=== PATIENT | male | born 1955 | race Caucasian/White ===

== ENCOUNTER 2021-07-26 11:19 | Outpatient (REF) | payer MEDICARE, SELFPAY ==
--- NOTE | ~2021-07-26 | XR_ITS ---
EXAMINATION: XR CHEST CLINICAL INFORMATION: Atrial fibrillation. COMPARISON: None TECHNIQUE: 2 views of the chest were obtained. FINDINGS: Sternotomy wires are intact. Mediastinal surgical clips are noted. Left atrial appendage clip is noted. Mild cardiomegaly. Scattered aortic calcifications. No abnormal tracheal deviation. The lungs are mildly hyperinflated. Mild blunting of the right costophrenic sulci which may reflect trace pleural effusion and/or pleural thickening. No evidence of left pleural effusion. No pulmonary edema or pneumothorax. No focal airspace opacity. There is mild elevation of the right hemidiaphragm compared to left. Multilevel mild degenerative changes in the spine. XR/XR chest 2V IMPRESSION: Mild cardiomegaly. Trace right pleural effusion versus pleural thickening. No acute pulmonary process otherwise. Hyperinflated lungs.
[2021-07-26 13:15] LABS: Hematocrit 23.2 % (42.0-52.0); Hemoglobin 7.3 g/dl (14.0-18.0); Mean Corpuscular HGB Conc 31.5 g/dl (31.0-36.0); Mean Corpuscular Hemoglobin 28.4 pg (27.0-33.0); Mean Corpuscular Volume 90.3 fL (80.0-98.0); Mean Platelet Volume 10.7 fL (9.4-12.4); Platelet Count 190 X10*3/uL (160-400); Red Blood Count 2.57 X10*6/uL (4.60-5.80); Red Cell Distribution Width 14.9 % (11.0-16.0); White Blood Count 12.7 X10*3/uL (4.8-10.8)
[2021-07-26 13:57] LABS: Erythrocyte Sedimentation Rate 38 MM/HR (0-15)
[2021-07-26 14:03] LABS: Alanine Aminotransferase 18 U/L (0-40); Alkaline Phosphatase 58 U/L (39-117); Anion Gap 15 (12-20); Aspartate Amino Transferase 19 U/L (5-37); Bilirubin Direct 0.3 mg/dL (0.0-0.5); Bilirubin Total 0.4 mg/dL (0.0-1.0); Blood Urea Nitrogen 12 mg/dL (9-16); Calcium 8.6 mg/dL (8.4-10.2); Carbon Dioxide 20 mmol/L (22-29); Chloride 108 mmol/L (96-108); Cholesterol 85 mg/dL; Estimated Glomerular Filt Rate > 60; Glucose Random 137 mg/dL (60-115); HDL Cholesterol 47 mg/dL; LDL Cholesterol Calculated 27 mg/dl; Potassium 4.3 mmol/L (3.3-5.1); Sodium 139 mmol/L (135-145); Total Protein 6.4 g/dL (6.5-8.0); Triglycerides 56 mg/dL
== END 2021-07-26 11:20 | disposition home or self-care (01) ==
LOC: HO.HMGCX 11:19
PROVIDERS: Visit Provider Internal Medicine
DX: I48.91 Unspecified atrial fibrillation (principal)
CPT/HCPCS: 36415; 71046; 80048; 80061; 80076; 85027; 85652

== ENCOUNTER 2025-01-02 09:12 | Outpatient (AMB) | payer MEDICARE, SELFPAY ==
--- NOTE | 2025-01-02 09:17 | A.OFFVIS_ITS ---
Vital Signs 01/02/25 09:18 Height 5 ft 8 in Weight 132 lb BMI 20.1 BP 100/52 L Blood Pressure Location Lt brachial Position Sitting Pulse 69 Pulse Source Pulse Oximeter Pulse Oximetry (%) 96 Oxygen Delivery Method Room Air Intake Visit Reasons: COPD Allergies No Known Allergies Allergy (Verified 01/02/25 09:22) HPI HPI COPD: Details: Errol is a pleasant 69-year-old male, current smoker, with 54+ pack year history with underlying COPD, coronary artery disease status post CABG x4, atrial fibrillation, hypertension, hyperlipidemia and heart failure with preserved EF. He was referred by cardiology for pulmonary evaluation for worsening dyspnea on exertion over the last few months. He is suboptimally controlled on Spiriva and uses albuterol MDI 2-3 times per day. He also notes intermittent wheezing and productive cough with yellow sputum. His last echo was October 2022 which revealed LVEF 40%. Stress test negative for new ischemic findings. Chest x-ray August 2023 revealed chronic small left pleural effusion, no prior chest CT. He also notes unintentional weight loss of 20+ lbs over the last six months with associated decrease in appetite. Denies GI workup. He denies prior h/o asthma. Endorses second hand smoke exposure as a child. Denies recurrent respiratory infections. Denies pertinent family history. 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 [facility] Medical History (Updated 01/02/25 @ 12:51 by Shannon Rosales NP) Diabetes mellitus Social History (Updated 01/02/25 @ 09:22 by Sherry Peace CMA) Patient Tobacco Use Status: Current everyday Tobacco user Cigarette Packs Per Day: 1 Cigarettes Per Day: 20 Review of Systems Const Denies chills, Denies excessive sweating, Denies fever(s), Denies headache(s) and Denies night sweats Eyes Denies dry eyes, Denies irritation and Denies itchy eyes ENT Reports Normal hearing present, Denies headache(s), Denies nasal congestion, Denies nasal discharge, Denies post nasal drip and Denies sore throat Card Denies chest pain, Denies chest pain at rest, Denies chest pain with activity, Denies claudication, Denies leg edema, Denies orthopnea and Denies paroxysmal nocturnal dyspnea Resp Denies excessive phlegm production, Denies pain on inspiration, Denies pain with cough and Denies stridor Musc Denies myalgias Neuro Reports Normal hearing present and Denies headache(s) Endo Denies excessive sweating Ezekiel/Lymph Denies lymphadenopathy Aller/Immun Denies itchy eyes and Denies seasonal rhinorrhea Physical Exam Vital Signs: Last Vital Signs Pulse 69 01/02/25 09:18 BP 100/52 L 01/02/25 09:18 Pulse Ox 96 01/02/25 09:18 Oxygen Delivery Method Room Air 01/02/25 09:18 BMI result Body Mass Index 20.1 Const General: cooperative, comfortable, no acute distress and alert Orientation/consciousness: patient oriented x3 HEENT Head: Yes normal to inspection, Yes normocephalic and Yes atraumatic Ears: hearing grossly normal bilaterally and external ears normal Eyes General: appearance normal, both eyes and all related structures Eyelids: Yes eyelids normal Sclerae: sclerae normal EOM: EOMs intact bilaterally Neck Neck: Yes normal visual inspection and Yes no lymphadenopathy Lymphatic: no lymphadenopathy noted Chest Chest palpation & inspection: normal inspection of the chest Resp Effort & Inspection: normal respiratory effort, able to speak in complete sentences, no audible wheezes, Actively coughing Quality: wet, no stridor, not tachypneic, no tripod positioning and no use of accessory muscles Auscultation: no crackles, rhonchi and wheezes Cardio Jugular venous distension: no JVD Rate: regular rate Rhythm: regular rhythm Skin Other: warm, dry General skin exam: no rashes or lesions noted Neuro General: patient oriented x3 Cranial nerves: Yes Normal hearing present Cognition (Neuro): normal cognition Gait exam (Neuro): Normal gait present Extrem General: Yes normal to inspection, Yes capillary refill normal, Yes no clubbing, cyanosis or edema and Yes no pedal edema Psych Appearance: grossly normal and well kempt Speech and movement: Normal speech and movement present and Clear speech present Affect: normal affect Attitude: cooperative Thought process: Normal thought process present Thought content: Normal thought content present Insight: Good insight present (Psych) Judgement: Good judgement present (Psych) Assessment & Plan Assessment & Plan (1) COPD (chronic obstructive pulmonary disease): Code(s): J44.9 - Chronic obstructive pulmonary disease, unspecified Category: Medical (2) Nicotine dependence, cigarettes, uncomplicated: Code(s): F17.210 - Nicotine dependence, cigarettes, uncomplicated Category: Medical Plan Errol presents for pulmonary evaluation for worsening dyspnea on exertion with known history of COPD. Today presents with acute exacerbation, will treat bronchitic symptoms with doxycycline and prednisone. He is aware to call if symptoms do not improve. Will switch Spiriva to Trelegy. Discussed importance of good oral hygiene to prevent thrush. Will send for chest CT given significant smoking history and with unintentional weight loss in addition to decreased appetite. Patient has PFT scheduled later this week through [facility], will obtain results when available. Smoking cessation reviewed and patient not ready to q uit. All questions were answered and patient is in agreement of plan. Will follow up in 6-8 weeks or sooner if needed. Orders: Orders CT chest wo IV con Today F1 - Nicotine dependence, cigarettes, uncomplicated Medications: New eyrqpvuxkxg-twyqjjncj-gtblfuzm 200-62.5-25 mcg (Trelegy Ellipta) 1 inh inhalation DAILY 60 ea 6RF doxycycline hyclate 100 mg PO BID 14 caps 0RF prednisone 40 mg (2 x 20 mg) PO DAILY 10 tabs 0RF Coding Level of Care Code New Pt Level 4 (60482) Diagnoses COPD (chronic obstructive pulmonary disease) J44.9 Nicotine dependence, cigarettes, uncomplicated F1
[2025-01-02 09:18] VITALS: BP 100/52; PULSE 69; O2SAT 96; BMI 20.1
--- OUTSIDE RECORDS SUMMARY | 2025-01-02 09:59 | XMS_ITS ---
Author Organization [facility] allie [place] Address [address] [place] [address] Care Team Providers Care Equipment Service Associate Name Role Phone Junie Ann Primary Care Provider Unavail able Julissa Ellison Unavailable [phone] Jorge Hernandez Unavailable [phone] Ruth Encounters Encounter Location Date Provider Diagnosis [address] [address] 01/04/2024 Jorge Hernandez Plan Of Treatment Next Appt Details Provider Name:Julissa schmitt, 01/16/2025 10:30:00 AM, [address] [place] [address], [place], [address], Progress Notes * Errol RODRIGUES JrDOB:[birth year] (69 yo M)Acc No.[id number]:01/04/2024 Progress Note Patient:?Errol RODRIGUES r Provider:?Jorge Hernandez DPM :1955???Age:68 Y???Sex:Male Leonid e:01/04/2024 Address:[address] [place], [place] [address] Pcp:GABE Florian Subjective: * Chief Complaints: * ???1. Dr. Ruth. * Medical History:? Objective: * Vitals:? Assessment: Plan: * Treatment: * Images: * The named appointment provid er may or may not be the originator of this progress note, and it is not deemed complete until electronically signed by the appointment provider. Sign off status: Pending * Provider:Yolanda Hernandez DPM Date:? 024 Generated for Grecia alexis/Jayna/Neal on:?01/02/2025 09:59 AM EDT
--- OUTSIDE RECORDS SUMMARY | 2025-01-02 09:59 | XMS_ITS | Clinical Summary ---
Author Organization [facility] Address [address] [place] [address] Care Team Providers Care Logistics Officer Name Role Phone Jenae Hahn MD Primary Care Provider Allergies No known active allergies Medications Medication Sig Dispensed Refills Start Date End Date Status metFORMIN (GLUCOPHAGE) tablet 500 mg Take 1,500 mg by mouth. 0 04/01/2021 Active acetaminophen (TYLENOL) 500 MG tablet Take 1,000 mg by mouth. 0 11/02/2018 Active atorvastatin (LIPITOR) tablet 80 mg Take 80 mg by mouth every other day. 0 09/22/2021 Active carvedilol (COREG) 3.125 MG tablet Take 3.125 mg by mouth 2 (two) times a day with meals. 0 09/08/2021 Active FeroSul 325 (65 Fe) MG tablet Take 1 tablet by mouth daily. 0 10/05/2021 Active FLUoxetine (PROzac) 40 MG capsule Take 40 mg by mouth daily. 0 08/08/2021 Active furosemide (LASIX) 20 MG tablet Take 40 mg by mouth daily. 0 10/15/2021 Active B-D UF III MINI PEN NEEDLES 31G X 5 MM [facility] USE 1 PEN NEEDLE TO INJECT INSULIN ONCE DAILY 0 10/12/2021 Active isosorbide mononitrate (IMDUR) 30 MG 24 hr tablet Take 30 mg by mouth every morning. 0 08/20/2021 Active omeprazole (PriLOSEC) 20 MG capsule Take 1 capsule by mouth daily. 0 10/09/2021 Active Entresto 24-26 MG per tablet Take 1 tablet by mouth 2 (two) times a day. 0 10/03/2021 Active thiamine 250 MG tablet Take 250 mg by mouth. 0 07/28/2021 Active traZODone (DESYREL) 100 MG tablet Take 100 mg by mouth every night at bedtime. 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 Failed previously multiple attempts Alcohol Use Standard Drinks/Week Comments Not Currently 0 (1 standard drink = 0.6 oz pur e alcohol) Recovering alcoholic Sex and Gender Information Value Date Recorded Sex Assigned at Not on file Gender Identity Not on file Sexual Orientation Not on file Job Start Date Occupation Industry Not on file Not on file Not on file Last Filed Vital Signs Vital Sign Reading Time Taken Comments Blood Pressure 149/68 10/22/2021 9:51 AM EST Pulse 71 10/22/2021 9:51 AM EST Temperature 36.6 ??C (97.9 ??F) 10/22/2021 9:51 AM ES T Respiratory Rate - - Oxygen Saturation 99% 10/22/2021 9:51 AM EST Inhaled Oxygen Concentration - - Weight 72.9 kg (160 lb 12.8 oz) 10/22/2021 9:51 AM EST Height 174 cm (5' 8.5 ) 10/22/2021 9:51 AM EST Body Mass Index 24.09 10/22/2021 9:51 AM EST Plan of Treatment Health Maintenance Due Date Last Done Comments Hepatitis C Screening 1955 Lung Cancer Screening (Low Dose CT) 1955 Depression Screening 1965 Preventative Health Evaluation 1971 DTap / Tdap / Td (1 - Tdap) 02/09/1972 Colon Cancer Screening (Colonoscopy) 1998 Shingrix-Zoster Vaccine (1 o f 2) 2003 RSV Adult > 60+ Yrs or (1 - Risk 60-74 years 1-dose series) 2013 Fall Risk Assessment 2018 Pneumococcal Vaccine (2 of 2 - PPSV23 or PCV20) 03/03/2019 01/06/2019 COVID-19 Vaccine (4 - 2023-2 5 season) 2024 05/26/2021, 11/20/2020, 10/30/2020 Influenza Vaccine (#1) 2024 05/26/2021 Hepatitis B Vaccines Aged Out No long er eligible based on patient's age to complete this topic RSV Ped < 20 months Aged Out No longe r eligible based on patient's age to complete this topic Care Teams Logistics Officer Relationship Specialty Start Date End Date Jenae Hahn MD [address] [place], [place] PCP - General Pulmonary Disease 09/23/21
--- OUTSIDE RECORDS SUMMARY | 2025-01-02 09:59 | XMS_ITS ---
[facility] Address [address] [place] [address] Care Team Providers Care Coater Operator Name Role Phone Yazan Junie BERNAL Primary Care Provider Unavail able Julissa Ellison Unavailable [phone] Jorge Hernandez Unavailable [phone] Allergies No Known Allergies Medications Medication SIG (Take, Route, Frequency, Duration) Notes Start Date End Date Status Omeprazole Active Clobetasol Propionate Active Sacubitril-Valsartan Active Entresto 24-26 MG 1 tablet Orally Twic e a day Active eliquis 5 mg Active Spiriva Respimat Act scott Farxiga 5 MG 1 tablet Orally Once a day Active Ventolin HFA Active Torsemide Active Iron Active Gabapentin Active Vitamin C Active Docusate Sodium Acti ve Vitamin B1 Active Aspir-81 Active Tylenol 500mg Not-Ta keaton Lisinopril 20 MG 1 tablet Orally Once a day for 30 day(s) Not-Taking oxyCODONE HCl 5 MG Orally N ot-Taking Lantus 100 UNIT/ML as directed Subcutaneous Active Warfarin Sodium 1 MG 1 tablet Orally Onc e a day for 30 day(s) Not-Taking Isosorbide Dinitrate 30 MG 1 tablet Orally Twice a day for 30 day(s) Not-Taking Carvedilol 6.25 MG 1 tablet with food Orally Twice a day Active Digoxin 125 MCG as directed Orally Not-Taking Thiamine 250mg 1 capsules Not- Taking Gabapentin 100 MG 1 capsule Orally Onc e a day hs 01/26/2020 Not-Taking metFORMIN HCl 500 MG 1 tablet with a marjorie l Orally Once a day for 30 day(s) Active Multivitamin Active Clopidogrel Bisulfate 75 MG 1 tablet Orally Once a day for 30 day(s) Active Furosemide 20 MG as directed Orally Not-Taking traZODone HCl 100 MG 1 tablet at bedtime Orally Once a day for 30 day(s) Active Acetaminophen Not-Ta keaton Atorvastatin Calcium 80 MG 1 tablet Orally Once a day for 30 day(s) Active Fluoxetine Active Budesonide Active Ferrous Sulfate Acti ve Insulin Glargine Act scott Social History Tobacco Use: Social History Observation Description Date Details (start date - stop date) Current Smoker NA - NA Tobacco Use/Smoking Question Answer Notes Are you a: current smoker How many cigarettes a day do you smoke? Alcohol Screen Question Answer Notes Did you have a drink containing alcohol in the p ast year? No Points 0 Interpretation Negative Tobacco use other than smoking: Question Answer Notes Are you an other tobacco user? No Vital Signs Height 5ft 8in in 01/11/2024 Weight 144 lbs 01/11/2024 BMI 21.89 kg/m2 01/11/2024 Encounters Encounter Location Date Provider Diagnosis [facility] [place] [address] [place] [id number] 01/11/2024 Jorge Hernandez Type 1 diabetes mellitus with diabetic polyneuropathy E10.42 ; Neuralgia and neuritis, unspecified M79.2 ; Eczema, unspecified type L30.9 ; Tinea unguium B35.1 ; Ingrowing nail L60.0 ; Pain in left foot M79.672 ; Pain in right foot M79.671 and Xerosis cutis L85.3 Assessments Encounter Date Diagnosis (ICD Code) Assessment Notes Treatment Notes Treatment Clinical Notes Section Notes 01/11/2024 Type 1 diabetes mellitus with diabetic polyneuropathy (ICD-10 - E10.42) 01/11/2024 Neuralgia and neuritis, unspecified (ICD-10 - M79.2) 01/11/2024 Eczema, unspecified type (ICD-10 - L30.9) 01/11/2024 Tinea unguium (ICD-10 - B35.1) 01/11/2024 Ingrowing nail (ICD-10 - L60.0) 01/11/2024 Pain in left foot (ICD-10 - M79.672) 01/11/2024 Pain in right foot (ICD-10 - M79.671) 01/11/2024 Xerosis cutis (ICD-10 - L85.3) Plan Of Treatment Next Appt Details Follow Up: 1 Year, Reason: Provider Name:Julissa Collins keshia, 01/16/2025 10:30:00 AM, [address] [facility], [address], [place], [address], Procedure Notes * Category Sub-Category Detail Notes Keratoma Treatment Parring or Cutting o f Benign Hyperkeratotic Lesion(s) 80545 ( >4 Lesions) - The Benign hyperkeratotic lesions, as described above were pared, and/or cut utilizing a sterile #15 blade, tissue nippers, and/or dremel Nail Reduction Nail Reduction Trimming of dyst rophic nails performed to reduce/remove overall nail length and girth, by manual and electrical means with use of a nail nipper and/or dremel, to more viable healthy nail plate or bed tissue 6-10 (G0127) Progress Notes * Errol RODRIGUES JrDOB:[birth year] (68 yo M)Acc No.[id number]:01/11/2024 Progress Note Patient:?Errol Rodrigues Provider:?Jorge Hernandez DPM :1955???Age:68 Y???Sex:Male Leonid e:01/11/2024 Address:[address] [place], [place] [id number] Pcp:GABE Florian Subjective: * Chief Complaints: * ??? * HPI: ???At Risk footcare:?Pt States Last PCP Visit:?Date?09/30/2023 ???Foot Pain:?Nature:?cold, numbness, tingling.?Location?Right , Forefoot, Midfoot, Rearfoot.?Duration:?several years.?Onset/Cause:?spinal disease.?Aggrevated:?standing, walking, exercise.?Treatments:?3 sx consults-- all have told pt there is no operation they can do to help; pt had recent vascular exam and testing done at [facility] which indicates worsening of his circulation but no advice of sx tx.?Quality/Severity?severe.?Skin problems:?Nature:?discolored, tender.?Location:?Right , 1st, Tip.?Duration:?several weeks.?Onset/Cause:?shoes are too short/small.?Aggravated by:?no aggrevating factors due to dpn.?Severity/Quality:?mild.? * ROS:?General/Constitutional:?Nausea?denies.?Vomiting?denies.?Hunger Thirst?denies.?Loss appetite?denies.?Chills?denies.?Fatigue?denies.?Fever?denies.?Night Sweats?denies.?Unexplained weight loss?denies.?Unexplained weight gain?denies.?HEENTM:?Dentures?denies.?Dizziness?denies.?Glasses/contacts?denies.?Retinopathy?de nies.?Blurred/double vision?denies.?TMJ?denies.?Discharge/drainage?denies.?Implants?denies.?Sore throat?denies.?Dental implants?denies.?Hard of hearing ?denies.?Difficulty chewing/swallowing/speaking?denies.?Nose bleeds?denies.?Sore mouth?denies.?Respiratory:?On Oxygen?denies.?Pneumonia/pleurisy?denies.?Bronchitis?denies.?Emphysema?denies.?C oughing?denies.?Cough blood?denies.?Shortness of breath?denies.?Wheezing?denies.?Cardiovascular:?Pacemaker?denies.?MVP?denies.?WPW?denies.?CHF?denies.?Heart attack?denies.?Septal defect?denies.?Rapid beat?denies.?Chest pain ?denies.?Atrial Fib.?denies.?Murmur/Palpitations?denies.?Gastrointestinal:?Hemorrhoids?denies.?Stomach/Abdominal pain?denies.?Dark blood stool?denies.?Irritable bowel ?denies.?Constipation?denies.?Diarrhea?denies.?Hematology:?Swelling?denies.?Clots?denies.?Varicose Veins?denies.?Bruising?denies.?Bleeding problem?denies.?Genitourinary:?Blood urine?denies.?Frequent/Painfu/urination/bladder control?denies.?Kidney stones?denies.?Infection (UTI)?denies.?Nephropathy?denies.?sex trans dis (STD)?denies.?Prostate?denies.?Musculoskeletal:?Hammertoes?denies.?Bunions?denies.?Back Pain?denies.?Muscle Cramps/ Resting?denies.?Muscle cramps / walking?denies.?Generalized aches and pains?denies.?Weakness?denies.?Integ.:?Cain?denies.?Scars?denies.?Corns/calluses?denies.?Ingrown nails?denies.?Painful nails?denies.?Open Sores?denies.?Rashes?denies.?Neurologic:?Difficulty sleeping?denies.?Brain disorder?denies.?Numbness?denies.?Balance trouble?admits.?Confusion?denies.?Fainting/blackouts?denies.?Tingling?admits.?Tr emors?denies.? * Medical History:? * Surgical History:?Quadrupl h eart surgery [id number] implants [id number] transfusion * Hospitalization/Major Diagno stic Procedure:[facility] Pacemaker 07/2022 * Family History:?Mother: dece ased, foot problems, poor circulation, diagnosed with Family history of arthritis, Diabetic - NIDDM, Unspecified essential hypertension.?Father: , heart attack.?Siblings: stroke, heart attack, diagnosed with Family history of arthritis.? * Social History:?Tobacco Use:?Tobacco Use/Smoking?Are you a:?current smoker ?How many cigarettes a day do you smoke??21-30 ?Tobacco use other than smoking?Are you an other tobacco user??No ???Drugs/Alcohol:?Drugs?Have you used drugs other than those for medical reasons in the past 12 months??No ?Alcohol Screen?Did you have a drink containing alcohol in the past year??No ?Points?0 ?Interpretation?Negative ???Miscellaneous:?Caffeine: yes, frequency:, 2-3 cups per day. ?Children: yes. ?Exercise: yes. ?Marital status: . ?Occupation: Retired [employer]. * Medications:?TakingGabapenti n Vitamin C Vitamin B1 Aspir-81 Docusate Sodium Iron Ventolin HFA Torsemide Spiriva Respimat Farxiga 5 MG Tablet 1 tablet Orally Once a dayEntresto 24-26 MG Tablet 1 tablet Orally Twice a dayeliquis 5 mg Tablet Clobetasol Propionate Sacubitril-Valsartan Omeprazole Insulin Glargine Ferrous Sulfate Fluoxetine Budesonide Atorvastatin Calcium 80 MG Tablet 1 tablet Orally Once a dayClopidogrel Bisulfate 75 MG Tablet 1 tablet Orally Once a daymetFORMIN HCl 500 MG Tablet 1 tablet with a meal Orally Once a dayMultivitamin traZODone HCl 100 MG Tablet 1 tablet at bedtime Orally Once a dayCarvedilol 6.25 MG Tablet 1 tablet with food Orally Twice a dayLantus 100 UNIT/ML Solution as directed Subcutaneous Taking Gabapentin Taking Vitamin C Taking Vitamin B1 Taking Aspir-81 Taking Docusate Sodium Taking Iron Taking Ventolin HFA Taking Torsemide Taking Spiriva Respimat Taking Farxiga 5 MG Tablet 1 tablet Orally Once a dayTaking Entresto 24-26 MG Tablet 1 tablet Orally Twice a dayTaking eliquis 5 mg Tablet Taking Clobetasol Propionate Taking Sacubitril-Valsartan Taking Omeprazole Taking Insulin Glargine Taking Ferrous Sulfate Taking Fluoxetine Taking Budesonide Taking Atorvastatin Calcium 80 MG Tablet 1 tablet Orally Once a dayTaking Clopidogrel Bisulfate 75 MG Tablet 1 tablet Orally Once a dayTaking metFORMIN HCl 500 MG Tablet 1 tablet with a meal Orally Once a dayTaking Multivitamin Taking traZODone HCl 100 MG Tablet 1 tablet at bedtime Orally Once a dayTaking Carvedilol 6.25 MG Tablet 1 tablet with food Orally Twice a dayTaking Lantus 100 UNIT/ML Solution as directed Subcutaneous Not-Taking/PRNAcetaminophen Furosemide 20 MG Tablet as directed Orally Thiamine 250mg 1 capsules Gabapentin 100 MG Capsule 1 capsule Orally Once a day hsDigoxin 125 MCG Tablet as directed Orally Isosorbide Dinitrate 30 MG Tablet 1 tablet Orally Twice a dayLisinopril 20 MG Tablet 1 tablet Orally Once a dayoxyCODONE HCl 5 MG Tablet Orally Tylenol 500mg Warfarin Sodium 1 MG Tablet 1 tablet Orally Once a dayMedication List reviewed and reconciled with the patientNot-Taking/PRN Acetaminophen Not- Taking/PRN Furosemide 20 MG Tablet as directed Orally Not-Taking/PRN Thiamine 250mg 1 capsules Not-Taking/PRN Gabapentin 100 MG Capsule 1 capsule Orally Once a day hsNot- Taking/PRN Digoxin 125 MCG Tablet as directed Orally Not-Taking/PRN Isosorbide Dinitrate 30 MG Tablet 1 tablet Orally Twice a dayNot-Taking/PRN Lisinopril 20 MG Tablet 1 tablet Orally Once a dayNot-Taking/PRN oxyCODONE HCl 5 MG Tablet Orally Not-Taking/PRN Tylenol 500mg Not-Taking/PRN Warfarin Sodium 1 MG Tablet 1 tablet Orally Once a dayMedication List reviewed and reconciled with the patient * Allergies:?N.K.D.A.yes[Aller sonu Verified] Objective: * Vitals:?Ht: 5ft 8in, Wt:144, BMI:21.89, Shoe size: 9-9.5, Ht-cm: 172.72 cm, Wt- k.32 kg. * Examination: ???Ophthalmology Referral: ?DIABETES EYE EXAM?Diabetic Retinopathy Screening:?Yes?Dermatologic: ?SKIN FINDINGS:? Skin exam reveals Keratotic lesion(s) located at, Medial plantar, IPJ, TA, T5, Heel(s), B/Land distal -medial t5, Skin shows sign(s) of, erythema, scaling, in a moccasin fashion, no fissure(s) present, B/L, Skin exam reveals Keratotic lesion(s) located at, Plantar, Midfoot, B/L.?Neurological: ?SENSORY:?Neurological exam demonstrates, reduced light touch sensation, reduced vibration sensation, 5.07 monofilament test performed at plantar aspects of 5 varied sites per foot shows sensation, reduced , at Forefoot, at Midfoot right more than left.?TINEL'S COMPRESSION:?Negative tarsal tunnel, vinh pedis, and medial calcaneal nerves B/L.?BABINSKI REFLEX:?absent.?Vascular: ?DP PULSES:?1/4, B/L.?PT PULSES:?0/4, B/L.?CAPILLARY FILL TIME:?3 secs. per digit, B/L.?SKIN TEMPERTURE GRADIENT OF THE LOWER EXTERMITIES:?warm to cool, proximal to distal, B/L.?HAIR GROWTH/TEXTURE/ELASTICITY/TURGOR:?normal, B/L.?PIGMENTATION:?normal, B/L.?EDEMA:?no edema.?TELANGECTASIA:?absent.?VARICOSITIES:?absent.?General Examination: ?GENERAL APPEARANCE:?pleasant, alert, well nourished, well developed, well hydrated, with good attention to hygene/body habitus, and in no acute distress.?ORIENTED:?person,place, and time.?FOOT EXAM:?Lower Extremity Neurological Exam performed:?Yes ?Visual exam of foot performed:?Yes ?Date?01/11/2024 ?Sensory testing performed:?sensations diminished ?Pedal pulse taking performed:?1+?Neuroma Pain: ?PALPATION:?No interspace pain noted on palpation.?Orthopedic: ?MUSCLE STRENGTH:?5/5 all groups in a symmetrical fashion , B/L.?FOOTWEAR:? worn, and far too tight in toe box.?Ingrown Nail: ?INSPECTION:? Reveals nail incurvation, dull pain on palpation due to neuropathy, groove hypertrophy, Medial nail border, T5.?Nails: ?NAILS are:? Elongated, overgrown, dystrophic, lytic, greater than 3mm thick, discolored and friable with crumbly malodorous subungual debris, with dull to no pain on palpation due to neuropathy, TA, T5.? Assessment: * Assessment: 1.?Neuralgia and neuritis, u nspecified - M79.2?2.?Type 1 diabetes mellitus with diabetic polyneuropathy - E10.42 (Primary)?3.?Eczema, unspecified type - L30.9?4.?Tinea unguium - B35.1?5.?Ingrowing nail - L60.0?6.?Pain in left foot - M79.672 7.?Pain in right foot - M79.671?8.?Xerosis cutis - L85.3? Plan: * Treatment: * Procedures:?Keratoma Treatment:?Parring or Cutting of Benign Hyperkeratotic Lesion(s)?43142 ( >4 Lesions) - The Benign hyperkeratotic lesions, as described above were pared, and/or cut utilizing a sterile #15 blade, tissue nippers, and/or dremel.?Nail Reduction:?Nail Reduction?Trimming of dystrophic nails performed to reduce/remove overall nail length and girth, by manual and electrical means with use of a nail nipper and/or dremel, to more viable healthy nail plate or bed tissue 6-10 (G0127).? * Procedure Codes:?G0127 ANGELITO ING DYSTROPHIC NAILS ANY #, Modifiers: XS 37097 TRIM SKIN LESIONS, OVER 4, Modifiers: XS * Preventive Medicine:? ??Counseling:?Discussion:?-14: Office or other outpatient visit for the evaluation and management of an established patient, which required a medically appropriate history and/or examination and MODERATE level of DECISION MAKING for: 1 OR MORE CHRONIC PROBLEM(S) THATS WORSENING, 2 STABLE CHRONIC PROBLEMS, A NEWLY DIAGNOSED PROBLEM WITH UNCERTAIN PROGNOSIS, AN ACUTE COMPLICATED INJURY WITH MULTIPLE TREATMENT OPTIONS, OR AN ACUTE PROBLEM WITH ACCOMPANYING SYSTEMIC SYMPTOMS, THAT POSE(S) A MODERATE RISK OF MORBIDITY. THIS CONDITION MAY ALSO INCLUDE RX DRUG MANAGEMENT, OR A DECISON FOR MINOR SURGERY. When using time for code selection, 30-39 min of total time was spent on the day of the encounter interpreting the data and educating the patient as to the nature of their condition, treatment options available according to their individual PMH, meds, allergies, and overall health/living conditions, as well as any potential risks or complications that may occur from a failure to adhere to, and participate in, the recommended course of therapy. The discussion included a complete verbal, and/or written explanation of the examination results, any x-rays taken, the proposed diagnosis, and outline of the treatment plan. A schedule for future care needs was also explained. The patient verbalized an understanding of the instructions at this time and agreed to be an active participant in their treatment. If the patient should think of any questions or concerns after the visit, I have encouraged the patient to call the office.?Diabetic Footcare:?The Pt. was counseled in great detail on their muscoloskeletal foot and toe deformities which coincide with the dermatological presentations visualized on exam. We discussed how their deformities put the integrity of their feet at risk for potential pedal complications which makes the accomidative diabetic shoes and cutomizable inserts medically necessary. We discussed the different shoe and insert treatment types and options, as well as the important advantages for adhering to regularly wearing these accomidative devices daily. The patient was made aware of the fact that a failure to abide by these recommedations may be deleterious to their foot health as they are able to prevent many pedal complications such as skin irritation, skin ulceration, infection, and even loss of toe/foot/leg/or life. Time was also spent with the patient dispensing and discussing proper diabetic footcare techniques including daily skin moisturization, daily foot inspection for any interruption in skin integrity including open lesions, or sign of infection such as redness/malodor/drainage/swelling. Also discussed and recommended were procedures regarding daily shoe inspection for the presence of internal foreign bodies as well as any visualized irregular shoe or insert wear. Patient questions re: shoes, inserts, and self foot inspections were answered to their satisfaction as the patient verbally confirmed a full understanding of the above information. A Rx: Extra Depth Diabetic Shoes with 3 pair of custom heat-molded inserts was dispensed, A thorough inspection of the patient's Rxed shoegear and inserts was performed and their findings communicated. We reviewed the many important medical advantages for adhering to regularly wearing these toe/foot accommidative devices daily. We reviewed the fact that a failure to implement these recommedations may be deleterious to the patient's foot health as there would be an inability to prevent many pedal complications. Such may lead to skin irritation, skin ulceration, infection, and even loss of toe/foot/leg/or their life. Time was also spent reviewing proper diabetic footcare practices including daily skin moisturization, daily foot inspection for any interruption in skin integrity, open lesions, or sign of infection such as redness/malodor/drainage/swelling. Also recommended was purposeful regular shoe inspection for the presence of internal foreign bodies as well as irreguklar shoe and insert wear. Patient questions re: shoes, inserts, and self foot inspections were answered to their satisfaction as the patient verbally confirmed a full understanding of the above information_ _pt to throw away curent shoes and new larger size to prevent dm skin ulcer/infection .?Xerosis:?The patient was counseled on the diagnosis, potential etiologies, and treatment options for their skin condition. We discussed the risks and benefits of each option from performing no treatment, to utilizing OTC topical skin creams/ointments, to utilizing prescription topical creams/ointments, to utilizing customized compounded topical medications and use of nocturnal occlusion with any/all previously detailed therapies. We discussed the advantages and disadvantages of each possible treatment and importance for adherence to all the recommended therapies for optimum success and avoid potential complications such as open sore/infection/possible hospitalization. We discussed the potential effectiveness of each topical preparation as well as each ones possible side effects and/or patient medication interactions. Patient questions re: use, dosage, successful outcomes, and application consistency were reviewed and the patient verbalized that all answers were clearly understood. The patient has decided to apply Rx skin creams to their feet save the interspaces while paying special attention to the heels. Such was sent to their pharmacy at the time of visit.? * Follow Up:?1 Year * Images: * Sign off status: Completed true * Provider:?Jorge Hernandez DPM Date:? 024 Generated for Grecia alexis/Jayna/Neal on:?01/02/2025 09:59 AM EDT History and Physical Notes * HPI (History of Present Illness) Category Sub-Category Detail Notes Category Not es Skin problems Nature: discolored, tender Location: Right , 1st, Tip Duration: several weeks Onset/Cause: shoes are too short/ small Aggravated by: no aggrevating facto rs due to dpn Severity/Quality: mild At Risk footcare Pt States Last PCP Visit: Date: 4 Foot Pain Aggrevated: standing, walking, exercise Onset/Cause: spinal disease Duration: several years Nature: cold, numbness, ting ling Treatments: 3 sx consults-- all have told pt there is no operation they can do to help; pt had recent vascular exam and testing done at [facility] which indicates worsening of his circulation but no advice of sx tx Quality/Severity severe Location Right , Forefoot, Mi dfoot, Rearfoot Examination Category Sub-Category Detail Notes Category Not es Ingrown Nail INSPECTION: Reveals nail inc urvation, dull pain on palpation due to neuropathy, groove hypertrophy, Medial nail border, T5 Neuroma Pain PALPATION: No interspace pain noted on palpation Neurological SENSORY: Neurological exa m demonstrates, reduced light touch sensation, reduced vibration sensation, 5.07 monofilament test performed at plantar aspects of 5 varied sites per foot shows sensation, reduced , at Forefoot, at Midfoot right more than left BABINSKI REFLEX: absent TINEL'S COMPRESSION: Negative tarsal dixon antonia, vinh pedis, and medial calcaneal nerves B/L Dermatologic SKIN FINDINGS: Skin exam reveal s Keratotic lesion(s) located at, Medial plantar, IPJ, TA, T5, Heel(s), B/Land distal -medial t5, Skin shows sign(s) of, erythema, scaling, in a moccasin fashion, no fissure(s) present, B/L, Skin exam reveals Keratotic lesion(s) located at, Plantar, Midfoot, B/L Orthopedic FOOTWEAR EVALUATION: worn, and far too ti ght in toe box MUSCLE STRENGTH: 5/5 all groups in a symmetrical fashion , B/L General Examination GENERAL APPEARANCE: pleasant , alert, well nourished, well developed, well hydrated, with good attention to hygene/body habitus, and in no acute distress FOOT EXAM: Lower Extremity Neurological Exa m performed:: Yes Visual exam of foot performed:: Yes Date: 01/11/2024 Sensory testing performed:: sensations d iminished Pedal pulse taking performed:: 1+ ORIENTED: person,place, and ti hi Ophthalmology Referral DIABETES EYE EXAM Diabetic Retinopa thy Screening:: Yes Vascular DP PULSES (B): 1/4, B/L PT PULSES (B): 0/4, B/L CAPILLARY FILL TIME: 3 secs. per digit, B/L TEMPERTURE GRADIENT (C): warm to cool, p roximal to distal, B/L TROPHIC CONDITION-TEXTURE/ELASTICITY/TURGOR/HAIR GROWTH (B): normal, B/L EDEMA (C): no edema TELANGECTASIA: absent VARICOSITIES: absent PIGMENTATION: normal, B/L Nails NAILS are: Elongated, overg rown, dystrophic, lytic, greater than 3mm thick, discolored and friable with crumbly malodorous subungual debris, with dull to no pain on palpation due to neuropathy, TA, T5
--- OUTSIDE RECORDS SUMMARY | 2025-01-02 10:00 | XMS_ITS | Patient Health Record ---
Author Organization [facility] Guido kelley [place] Address [address] [facility] [place] [address] Care Team Providers Care Junior Loan Processor Name Role Phone Junie Ann Primary Care Provider Unavail able Julissa Ellison Unavailable [phone] Jorge Hernandez Unavailable [phone] Allergies No Known Allergies Reason For Referral No Information Medications Medication SIG (Take, Route, Frequency, Duration) Notes Start Date End Date Status Gabapentin Active Vitamin C Active metFORMIN HCl 500 MG 1 tablet with a marjorie l Orally Once a day for 30 day(s) Active Multivitamin Active Clopidogrel Bisulfate 75 MG 1 tablet Orally Once a day for 30 day(s) Active Furosemide 20 MG as directed Orally Not-Taking Acetaminophen Not-Ta keaton Atorvastatin Calcium 80 MG 1 tablet Orally Once a day for 30 day(s) Active Fluoxetine Active Budesonide Active Docusate Sodium Acti ve Insulin Glargine Act scott Ferrous Sulfate Acti ve Vitamin B1 Active Warfarin Sodium 1 MG 1 tablet Orally Onc e a day for 30 day(s) Not-Taking Aspir-81 Active Omeprazole Active Clobetasol Propionate Active Tylenol 500mg Not-Ta keaton Sacubitril-Valsartan Active Entresto 24-26 MG 1 tablet Orally Twic e a day Active Lisinopril 20 MG 1 tablet Orally Once a day for 30 day(s) Not-Taking eliquis 5 mg Active oxyCODONE HCl 5 MG Orally N ot-Taking Spiriva Respimat Act scott Isosorbide Dinitrate 30 MG 1 tablet Orally Twice a day for 30 day(s) Not-Taking Farxiga 5 MG 1 tablet Orally Once a day Active Lantus 100 UNIT/ML as directed Subcutaneous Active Ventolin HFA Active Carvedilol 6.25 MG 1 tablet with food Orally Twice a day Active Torsemide Active Digoxin 125 MCG as directed Orally Not-Taking Thiamine 250mg 1 capsules Not- Taking Iron Active Gabapentin 100 MG 1 capsule Orally Onc e a day hs 01/26/2020 Not-Taking traZODone HCl 100 MG 1 tablet at bedtime Orally Once a day for 30 day(s) Active Immunizations Vaccine Route Administration Date Status Comme nts COVID-19 Pfizer BioNTech Vaccine Unknown 11/20/2020 Adm inistered 1# 10/30/20 Influenza Unknown 04/30/2020 Administered Social History Tobacco Use: Social History Observation [...] Are you an other tobacco user? No Problems Problem Type SNOMED Code ICD Code Onset Dates Problem Status W/U Status Risk Notes Problem Type 1 diabetes mellitus with diabetic polyneuropathy (E10.42) Active confirmed Vital Signs Height 5ft 8in in 01/11/2024 Weight 144 lbs 01/11/2024 BMI 21.89 kg/m2 01/11/2024 Encounters Encounter Location Date Provider Diagnosis [facility] [address] [address] 01/11/2024 Jorge Hernandez Type 1 diabetes mellitus with diabetic polyneuropathy E10.42 ; Neuralgia and neuritis, unspecified M79.2 ; Eczema, unspecified type L30.9 ; Tinea unguium B35.1 ; Ingrowing nail L60.0 ; Pain in left foot M79.672 ; Pain in right foot M79.671 and Xerosis cutis L85.3 Assessments Encounter Date Diagnosis (ICD Code) Assessment Notes Treatment Notes Treatment Clinical Notes Section Notes 01/11/2024 Neuralgia and neuritis, unspecified (ICD-10 - M79.2) 01/11/2024 Type 1 diabetes mellitus with diabetic polyneuropathy (ICD-10 - E10.42) 01/11/2024 Eczema, unspecified type (ICD-10 - L30.9) 01/11/2024 Tinea unguium (ICD-10 - B35.1) 01/11/2024 Ingrowing nail (ICD-10 - L60.0) 01/11/2024 Pain in left foot (ICD-10 - M79.672) 01/11/2024 Pain in right foot (ICD-10 - M79.671) 01/11/2024 Xerosis cutis (ICD-10 - L85.3) Plan Of Treatment Pending Test Test Name Order Date [id number] SKIN LESIONS, OVER 4 01/02/20 [id number] SKIN LESIONS, 2 TO 4 01/03/20 22 [id number] DYSTROPHIC NAILS ANY # Next Appt Details Provider Name:Julissa Collins keshia, 01/16/2025 10:30:00 AM, [address] [facility], [address], [place], [address], Insurance Providers Payer Name Payer Address Payer Phone Subscriber Number Group Number Insured Name Patient Relationship to Insured Coverage Start Date Coverage End Date [employer] [place] [employer] [facility] [address] [place] [address] [phone] [id number] Errol Rodrigues Self - patient is the insured Medical (General) History Medical History History ICD Code Back,Hip,and Knee pain Broken bones CAD (Cholesterol) Depression Diabetic Heart disease High blood pressure Neuropathy Measles Mumps Chicken pox Replacement Heart Valves Atrial fibrillation Pacemaker Surgical History Surgery Date(Month/Year) 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
--- OUTSIDE RECORDS SUMMARY | 2025-01-02 10:00 | XMS_ITS ---
Author Organization [facility] allie [place] Address [address] [facility] [address] Care Team Providers Care Pipe Production Worker Name Role Phone Junie Ann Primary Care Provider Unavail able Julissa Ellison Unavailable [phone] Jorge Hernandez Unavailable [phone] [place] Encounters Encounter [facility] Date [facility] [address] [facility]/31/[facility]23 Jorge Hernandez Plan Of Treatment Next Appt Details Provider Name:Julissa schmitt, 01/16/2025 10:30:00 AM, [address] [place] [address], [place], [address], Progress Notes * Errol RODRIGUES JrDOB:[birth year] (69 yo M)Acc No.[id number]:12/31/2023 Progress Note Patient:?Errol RODRIGUES Provider:?Jorge Hernandez DPM :1955???Age:68 Y???Sex:Male Leonid e:12/31/2023 Address:[address] [place], [place] [id number] Pcp:GABE Florian Subjective: * Chief Complaints: * ???1. Dr Hogue. * Medical History:? Objective: * Vitals:? Assessment: [...]
--- OUTSIDE RECORDS SUMMARY | 2025-01-02 10:00 | XMS_ITS | Clinical Summary ---
Author Organization [address] [place] [address] Address [address] [place] [address] Phone Care Team Providers Care Commuter Train Operator Name Role Phone Junie Hand NP Primary Care Provider Allergies No known active allergies Medications acetaminophen (TYLENOL) 500 mg tablet Take 1 Tab by mouth every 4 hours as needed. Active albuterol HFA (PROAIR HFA ; PROVENTIL HFA ; VENTOLIN HFA) 90 mcg/actuation inhaler Inhale 2 Puffs into the lungs every 4 hours as needed. Active aspirin 81 mg chewable tablet Take 1 Tablet by mouth daily. 2 Active atorvastatin (LIPITOR) 80 mg tablet Take 80 mg by mouth every other day. Active budesonide-glycopyr -formoterol (Breztri Aerosphere) 160-9-4.8 mcg/actuation HFA aerosol inhaler inhaler Inhale into the lungs. Active FLUoxetine (PROzac) 40 mg capsule Take 1 Cap by mouth daily. Active gabapentin (NEURONTIN) 100 mg capsule Take 100 mg by mouth 3 times daily. Active insulin glargine (LANTUS SoloStar) 100 unit/mL (3 mL) injection pen Inject into the skin. Active metFORMIN XR (GLUCOPHAGE-XR) 500 mg 24 hr tablet Take 3 Tabs by mouth daily. Active multivitamin (MULTIPLE VITAMINS ORAL) Take 1 tablet by mouth daily. Active torsemide (DEMADEX) 20 mg tablet Take 1 Tablet by mouth daily. Dose decrease 4 Active traZODone (DESYREL) 100 mg tablet Take 100 mg by mouth at bedtime. Active carvediloL (COREG) 3.125 mg tablet Take 1 tablet (3.125 mg total) by mouth 2 (two) times a day with meals. 180 each 3 4 08/18/20 25 Active sacubitriL-valsarta n (Entresto) 24-26 mg per tablet Take 1 tablet by mouth twice daily 60 tablet 6 5 Active SITagliptin phosphate (JANUVIA) 25 mg tablet Take 1 tablet (25 mg total) by mouth 1 (one) time each day. Active tiotropium (SPIRIVA) 18 mcg per inhalation capsule Place 1 capsule (18 mcg total) into inhaler and inhale 1 (one) time each day. Active ferrous sulfate 325 mg (65 mg iron) EC tablet Take 1 tablet (325 mg total) by mouth 3 (three) times a day with meals. Do not crush, chew, or split. Active isosorbide mononitrate (IMDUR) 30 mg 24 hr tabletIndications:C oronary artery disease, unspecified vessel or lesion type, unspecified whether angina present, unspecified whether [place] or transplanted heart,Ischemic cardiomyopathy Take 1 tablet (30 mg total) by mouth 1 (one) time each day. Do not crush or chew. 30 each 11 5 11/15/19 26 Active Hospital, Clinic, or Other Facility Administered Medication Ordered Dose Route Frequency Start Date End Date Status perflutren lipid microsphere (DEFINITY) 1.3 mL in sodium chloride 0.9% 8.7 mL injectionIndications:Co ronary artery disease, unspecified vessel or lesion type, unspecified whether angina present, unspecified whether [place] or transplanted heart,Ischemic cardiomyopathy 10 mL IV Once in imaging 10/26/2024 Activ e Active Problems Problem Noted Date Diagnosed Date HLD (hyperlipidemia) 06/21/2024 Anemia 08/26/2021 CAD (coronary artery disease) 04/23/2021 Assessment & Plan (11/30/2024 10:58 AM EDT): He denies any anginal symptoms at this time. He will continue on cardioprotective medical therapy of aspirin, statin and beta-tiffanie as well as Imdur. Recent stress testing without ischemia as outlined above. Instructed to call 911 or go to the emergency room should the patient begin to experience chest pain or pressure lasting greater than 10 minutes does not resolve with rest. Assessment & Plan (10/26/2024 4:23 PM EST): The patient does endorse a significant decrease in activity tolerance, breathlessness and fatigue since he was last in our office. He has had to take breaks walking short distances as outlined above. In light of his history of coronary disease and worsening symptoms, we are going to update nuclear stress testing to further evaluate for ischemia. The patient does feel as though he can walk on the treadmill so this will be an exercise stress test unless the patient is having issues with his right leg as sometimes he suffers from neuropathy this can be transitioned to a pharmacologic nuclear stress test. Instructed to call 911 or go to the emergency room should the patient begin to experience chest pain or pressure lasting greater than 10 minutes does not resolve with rest. Continue aspirin, statin and beta-tiffanie therapy Orders: ECG 12 lead Transthoracic echocardiogram (TTE) complete with PRN contrast, bubble, strain, and 3D order panel; Future perflutren lipid microsphere (DEFINITY) 1.3 mL in sodium chloride 0.9% 8.7 mL injection Nuclear stress test with myocardial perfusion; Future COPD (chronic obstructive pu lmonary disease) (CMS/HCC V24, CMS/HCC V28) 04/23/2021 Dizziness 04/23/2021 Hiatal hernia 04/23/2021 Ischemic cardiomyopathy 04/23/2021 Assessment & Plan (11/30/2024 10:58 AM EDT): Patient is euvolemic upon exam today. Recent nuclear stress test revealed an LVEF of 56%. He will continue on cardioprotective medical therapy of Entresto, carvedilol, and torsemide. Encouraged to continue to follow a low-sodium diet and perform daily weights. Patient will reach out to our office with a weight gain of 2 pounds in 1 day or 5 pounds in 5 days accompanied by worsening peripheral edema, shortness of breath or abdominal distention. Assessment & Plan (10/26/2024 4:23 PM EST): The patient is euvolemic upon exam today. We will update surveillance echocardiogram to evaluate for improvement in LVEF. He will continue on his current dose of carvedilol, Entresto and torsemide. Unfortunately, the patient is no longer taking Farxiga as his insurance is no longer covering this. Orders: Transthoracic echocardiogram (TTE) complete with PRN contrast, bubble, strain, and 3D order panel; Future perflutren lipid microsphere (DEFINITY) 1.3 mL in sodium chloride 0.9% 8.7 mL injection Nuclear stress test with myocardial perfusion; Future Neuropathy 04/23/2021 Paroxysmal A-fib (CMS/HCC V24, CMS/HCC V28) 03/31 Assessment & Plan (11/30/2024 10:58 AM EDT): Denies perception of recurrence of arrhythmia. Patient is not anticoagulated in the setting of GI bleed and severe anemia. He did have left atrial appendage ligation during his CABG. He will continue on his current dose of carvedilol. Assessment & Plan (10/26/2024 4:23 PM EST): Denies perception of of arrhythmia. He is ventricularly paced on EKG today with underlying atrial fibrillation. Patient remains off anticoagulation in the setting of recurrent GI bleeds and significant anemia. Unfortunately, he is not a candidate for Watchman procedure at this time due to previous left atrial appendage ligation. HTN (hypertension) 04/23/2021 Assessment & Plan (11/30/2024 10:58 AM EDT): Well-controlled during today's exam with a reading of 102/58. I have made no changes to his medications. Educated on the importance of diet lifestyle to help further assist in reducing blood pressure. The patient was encouraged to follow low-salt low-fat diet, make purposeful strides towards weight loss, and engage in routine aerobic exercise as tolerated. Smoker 04/23/2021 Encounters Date Type Department Care Team Description 12/14/2024 10:30 AM EDT Ancillary Procedure [facility] Cardiology [facility] [address] [facility] [address] [place] [address] 12/13/2024 Telephone [facility] Cardiology [facility] [address] [place] [address] Seth Bob MD 12/04/2024 Telephone [facility] [address] [place] [address] Marina Sandoval NP referral 12/01/2024 11:45 PM EDT Ancillary Procedure [facility] [address] [place] [address] 12/01/2024 7:20 PM EDT Ancillary Procedure [facility] [address] [place] [address] 12/01/2024 4:45 PM EDT Ancillary Procedure [facility] [address] [place] [address] 11/30/2024 9:40 AM EDT Office Visit [facility] [address] [place] [address] Marina Sandoval NP Shortness of breath (Primary Dx); Coronary artery disease involving autologous artery coronary bypass graft without angina pectoris; Paroxysmal A-fib (CMS/HCC V24, CMS/HCC V28); Hypertension, unspecified type; Ischemic cardiomyopathy 11/14/2024 11:30 AM EDT Ancillary Procedure [facility] [address] [place] [address] 11/13/2024 Telephone [facility] [address] [place] [address] Seth Bob MD 11/08/2024 9:30 AM EDT Ancillary Procedure [facility] [address] [place] [address] Coronary artery disease, unspecified vessel or lesion type, unspecified whether angina present, unspecified whether [place] or transplanted heart; Ischemic cardiomyopathy 10/26/2024 10:10 AM EST Office Visit [facility] - [address] [place] [address] Marina Sandoval NP Coronary artery disease, unspecified vessel or lesion type, unspecified whether angina present, unspecified whether [place] or transplanted heart (Primary Dx); Ischemic cardiomyopathy; Paroxysmal A-fib (CMS/HCC V24, CMS/HCC V28) 10/23/2024 Telephone [facility] Cardiology [facility] [address] [place] [address] Jeffrey Delarosa MD 10/18/2024 10:20 PM EST Ancillary Procedure [facility] Cardiology [facility] [address] [place] [id number] from Last 3 Months Family History Medical History Relation Name Comments CABG Brother Heart attack Father Heart attack Paternal Grandmother Relation Name Status Comments Brother Father Paternal Grandmother Social History Tobacco Use Types Packs/Day Years Used Date Smoking Tobacco: Every Day Cigarettes Smokeless Tobacco: Never Alcohol Use Standard Drinks/Week Comments Not Currently 0 (1 standard drink = 0.6 oz pur e alcohol) Sex and Gender Information Value Date Recorded Sex Assigned at Not on file Legal Sex Male 7:02 AM EST Gender Identity Not on file Sexual Orientation Not on file Obstetrics History Last Filed Vital Signs Vital Sign Reading Time Taken Comments Blood Pressure 102/58 11/30/2024 9:24 AM EDT Pulse 90 11/30/2024 9:24 AM EDT Temperature - - Respiratory Rate - - Oxygen Saturation 97% 11/30/2024 9:24 AM EDT Inhaled Oxygen Concentration - - Weight 61.2 kg (135 lb) 11/30/2024 9:24 AM EDT Height 172.7 cm (5' 8 ) 11/30/2024 9:24 AM EDT Body Mass Index 20.53 11/30/2024 9:24 AM EDT Plan of Treatment Upcoming Encounters Date Type Department Care Team (Late st Contact Info) Description 01/03/2025 12:30 PM EDT Ancillary Procedure [facility] Cardiology [facility] [address] [place] [address] 01/04/2025 12:45 PM EDT Appointment [facility] Pulmonary [address] [place] [phone] 07/10/2025 11:00 AM EST Ancillary Procedure [facility] [address] [facility] [address] [place] [phone] Health Maintenance Due Date Last Done Comments Diabetes: Annual Foot Exam 1965 Diabetes: Annual Retina Eye Exam 1965 Hepatitis A Vaccines (1 of 2 - Risk 2-dose series) 02/09/1972 Abdominal Aortic Aneurysm (AAA) Screen 08/07/2022 Cholesterol Screening (Lipid Panel) 08/07/2022 Colorectal Cancer Screening: Colonoscopy 08/07/2022 Depression Screening 08/07/2022 Falls Risk Assessment 08/07/2022 Hepatitis C Screening 08/07/2022 Lung Cancer Screening (Low Dose CT) 08/07/2022 Medicare Annual Wellness Visit 08/07/2022 Social Influencers of Health Screening 08/07/2022 Diabetes: Annual Urine Albumin-Creatinine Ratio (uACR) 08/30/2022 Diabetes: Blood Sugar Control Test (HGBA1C) 08/30/2022 COVID-19 Vaccine ( season) 2024 05/05/2024, 06/04/2023, 09/02/2022, Additional history exists Diabetes: Annual GFR (Glomerular Filtration Rate) 11/21/2024 11/22/2023 Hypertension/CHF/CAD Annual BMP Blood Test 11/21/2024 11/22/2023 DTaP,Tdap,and Td Vaccines (2 - Td or Tdap) 05/05/2033 05/05/2023 RSV Immunization Adult Patients Completed 07/14/2023 Zoster Vaccines Completed 07/14/2023, 05/10/2023 Influenza Vaccine Completed 05/05/2024, , 05/29/2022, Additional history exists Pneumococcal Vaccine: 50+ Years Completed 05/05/2024, 06/11/2022, 01/06/2019 HIB Vaccines Aged Out No longer eligi ble based on patient's age to complete this topic HPV Vaccines Aged Out No longer eligi ble based on patient's age to complete this topic Hepatitis B Vaccines Aged Out No long er eligible based on patient's age to complete this topic IPV Vaccines Aged Out No longer eligi ble based on patient's age to complete this topic MMR Vaccines Aged Out No longer eligi ble based on patient's age to complete this topic Meningococcal ACWY Vaccine Aged Out N o longer eligible based on patient's age to complete this topic Meningococcal B Vaccine Aged Out No l onger eligible based on patient's age to complete this topic RSV Immunization Patients Under 20 months Aged Out No longer eligible based on patient's age to complete this topic Varicella Vaccines Aged Out No longer eligible based on patient's age to complete this topic Medical Devices Implanted Type Area Cab Driver Device Identifier Shelf Expiration Date Model / Serial / Lot Cardiac Reconstructive Dentist-D Icd- 2 Implanted:05/2022 by Seth Bob MD (Quantity not on file) Cardiac WINDOW SYSTEMS ADMINISTRATOR-D ICD Left: Chest [employer] - CARDIAC RHYTH-CRDM CLARIA QUAD [id number] / [id number] / Medt-Card Claria Mri Quad Crtd [id number] Implanted:05/2022 (Quantity not on file) Cardiac WINDOW SYSTEMS ADMINISTRATOR-D ICD [employer] - CARDIAC RHYTH-CRDM CLARIA MRI QUAD CRTD [id number] / [id number] / Procedures Procedure Name Priority Date/Time Associated Diagnosis Comments CARDIAC DEVICE CHECK- REMOTE- MURJ Routine 12/14/2024 10:29 AM EDT CARDIAC DEVICE CHECK- REMOTE- MURJ Routine 12/01/2024 11:40 PM EDT CARDIAC DEVICE CHECK- REMOTE- MURJ Routine 12/01/2024 7:18 PM EDT CARDIAC DEVICE CHECK- REMOTE- MURJ Routine 12/01/2024 4:44 PM EDT CARDIAC DEVICE CHECK- REMOTE- MURJ Routine 11/14/2024 11:25 AM EDT NM LEXISCAN STRESS TEST W/ MYOCARDIAL PERFUSION Routine 11/08/2024 12:15 PM EDT Coronary artery disease, unspecified vessel or lesion type, unspecified whether angina present, unspecified whether [place] or transplanted heart Ischemic cardiomyopathy ECG 12-LEAD Routine 10/26/2024 3:40 PM EST Coronary artery disease, unspecified vessel or lesion type, unspecified whether angina present, unspecified whether [place] or transplanted heart CARDIAC DEVICE CHECK- REMOTE- MURJ Routine 10/18/2024 10:15 PM EST ANNUAL BMP BLOOD TEST Routine 11/22/2023 from Last 3 Months or Most Recently Relevant to Health Maintenance Results * Cardiac device check - Remote- MURJ (12/14/2024 10:29 AM EDT) Only the most recent of6 resultswithin the time period is included. Date Time Interrogation Session [id number] CV DEVICE CHECK Type Interrogation Session Remote CV DEVICE CHECK Implantable Pulse Generator Cab Driver MDT CV DEVICE CHECK Implantable Pulse Generator Type WINDOW SYSTEMS ADMINISTRATOR-D CV DEVICE CHECK Implantable Pulse Generator Model Claria MRI Quad CRTD [id number] CV DEVICE CHECK Implantable Pulse Generator Serial Number [id number] CV DEVICE CHECK Implantable Pulse Generator Implant Date 20220608 CV DEVICE CHECK Battery Remaining Longevity 55.0 CV DEVICE CHECK Battery Voltage 2.970 CV D EVICE CHECK Battery CONTROL ROOM AGENT Trigger 2.727 CV DEVICE CHECK Battery Status Middle of Service CV DEVICE CHECK Capacitor Charge Time 3.803 CV DEVICE CHECK Lyndon Statistic RA Percent Paced 0.00 CV DEVICE CHECK Lyndon Statistic RV Percent Paced 99.91 CV DEVICE CHECK WINDOW SYSTEMS ADMINISTRATOR Statistic LV Percent Paced 99.89 CV DEVICE CHECK WINDOW SYSTEMS ADMINISTRATOR Statistic WINDOW SYSTEMS ADMINISTRATOR Percent Paced 99.88 CV DEVICE CHECK Lead Channel Impedance Value 4,047 CV DEVICE CHECK Lead Channel Sensing Intrinsic Amplitude 14.750 CV DEVICE CHECK Lead Channel Setting Sensing Sensitivity 0.30 CV DEVICE CHECK Lead Channel Impedance Value 304 CV DEVICE CHECK Lead Channel Pacing Threshold Amplitude 0.625 CV DEVICE CHECK Lead Channel Pacing Threshold Pulse Width 0.4 CV DEVICE CHECK Lead Channel RV Pacing Threshold Date 2024-12-12 CV DEVICE CHECK Lead Channel Setting Pacing Amplitude 2.000 CV DEVICE CHECK Lead Channel Setting Pacing Pulse Width 0.4 CV DEVICE CHECK Lead Channel Impedance Value 304 CV DEVICE CHECK Lead Channel Pacing Threshold Amplitude 1.000 CV DEVICE CHECK Lead Channel Pacing Threshold Pulse Width 0.4 CV DEVICE CHECK Lead Channel Pacing Threshold Date 2024-12-12 CV DEVICE CHECK Lead Channel Setting Pacing Amplitude 1.500 CV DEVICE CHECK Lead Channel Setting Pacing Pulse Width 0.4 CV DEVICE CHECK Lyndon Setting Mode (NBG Code) VVIR CV DEVICE CHECK Ventricular chambers paced during WINDOW SYSTEMS ADMINISTRATOR pacing. BiV CV DEVICE CHECK Lyndon Setting Lower Rate Limit 70 CV DEVICE CHECK Lyndon Setting Maximum Sensor Rate 120 CV DEVICE CHECK WINDOW SYSTEMS ADMINISTRATOR LV-RV Delay 0 CV D EVICE CHECK Therapy Statistic Recent Shocks Delivered 0 CV DEVICE CHECK Therapy Statistic Recent Shocks Aborted 0 CV DEVICE CHECK Therapy Statistic Recent ATP Delivered 0 CV DEVICE CHECK RV HV Impedance 41 CV D EVICE CHECK Zone Setting Type Category VF CV DEVICE CHECK Rate 200 CV DEVICE CHECK Therapies ATP During Charging, 35Jx6 CV DEVICE CHECK Zone Setting Status On CV DEVICE CHECK Zone ID 3 CV DEVICE CHECK Zone Setting Type Category VT CV DEVICE CHECK Zone Setting Status Off CV DEVICE CHECK Zone ID 4 CV DEVICE CHECK Zone Setting Type Category VT CV DEVICE CHECK Zone Setting Status Off CV DEVICE CHECK Zone ID 5 CV DEVICE CHECK Zone Setting Type Category VT CV DEVICE CHECK Rate 140 CV DEVICE CHECK Rate 150 CV DEVICE CHECK Zone Setting Status ENABLED CV DEVICE CHECK Zone ID 6 CV DEVICE CHECK Date of Service 2025-01-17 CV DEVICE CHECK Anatomical Region Laterality Modality Device Interroga tion 12/13/2024 12:1 6 AM EDT Impressions 12/14/2024 10:27 AM EDT Heart Failure Diagnostic: Elevated Sent to Triage * Heart failure diagnostics assessed through the device * Status: Elevated Narrative Procedure Note Marina Sandoval NP - 12/14/2024 IMPRESSION: Heart Failure Diagnostic: Elevated Sent to Triage * Heart failure diagnostics assessed through the device * Status: Elevated Marina Sandoval NP CV IMPLANTABLE CARDIAC DEVICE PROCEDURES Final Result * NM LEXISCAN STRESS TEST W/ MYOCARDIAL PERFUSION (11/08/2024 12:15 PM EDT) Exercise/inject ion duration (min) 0 CV PACS STRESS Exercise/inject ion duration (sec) 35 CV PACS STRESS Peak SBP 118 mmHg CV PACS STRESS Peak DBP 50 mmHg CV PACS STRESS Peak HR 101 bpm CV PACS STRESS Baseline HR 85 bpm CV PACS STRESS Baseline SBP 116 mmHg CV PACS STRESS Baseline DBP 82 mmHg CV PACS STRESS Estimated workload 1.0 METS CV PACS STRESS Percent HR 68 % CV PACS STRESS Rate Pressure Product 11,918.0 mmHg*bpm CV PACS STRESS Target HR 127 bpm CV PACS STRESS TID 1.07 CV PACS STRESS Nuc Stress EF 62 % CV PAC S STRESS Nuc Rest EF 56 % CV PACS STRESS BSA 1.73 [address] P[address] STRESS [address] Depression (mm) 0 mm CV PACS STRESS O2 sat rest 92 % CV PACS STRESS Anatomical Region Laterality Modality Nuclear Medicine 11/08/2024 10:2 9 AM EDT 11/08/2024 10:59 AM EDT Impressions 11/09/2024 12:48 PM EDT 1. ??Abnormal pharmacological nuclear stress test. 2. Symptoms: No chest pain during the regadenoson infusion 3. Stress ECG: Nondiagnostic stress ECG in the setting of a paced rhythm 4. ??Attenuation corrected myocardial perfusion imaging: -The attenuation corrected myocardial perfusion imaging revealed evidence of a medium in size and severe in intensity fixed perfusion defect in the apex, apical septal wall, mid inferoseptal wall, and mid anteroseptal wall, suggestive of an infarct. -No evidence of reversible perfusion defects on the attenuation corrected images to suggest the presence of ischemia. 5. TID was normal at 1.07. 6. Gated SPECT imaging was performed which demonstrated hypokinesis of the apex and apical septal wall; and normal LV function with a calculated LVEF of 56% 7. ??There is evidence of multivessel coronary artery calcifications which were noted on the CT scan images obtained for attenuation correction. Narrative 11/09/2024 12:48 PM EDT Stress Findings A pharmacological stress test was performed using regadenoson, 0.4 mg IV over 10-15 seconds, followed by radiopharmacological injection 10 seconds post infusion. Total stress time was 0 min and 35 sec. The patient reached the end of the protocol. The patient's hemodynamic response was adequate for diagnosis. Blood pressure demonstrated a normal response. Heart rate demonstrated a normal response. The patient reported no symptoms during the stress test. ECG 69-year-old male with past medical history of coronary artery disease status post CABG x 4 in 2018, COPD, HFrEF, atrial fibrillation, PVD, anemia and smoking who presents today for a pharmacologic nuclear stress test in the setting of decreased activity tolerance. Patient took carvedilol 3.125 mg this morning. EKG V paced 70 bpm There were no arrhythmias during stress. There is no ST segment changes during stress. There were no arrhythmias during recovery. The result of the stress ECG was non-diagnostic for ischemia due to paced rhythm. Nuclear Study Quality Study technique: MPI, SPECT, multi, rest and stress, 1 day and gated. Overall image quality is good. CT attenuation correction was utilized. No radiopharmaceutical dose was extravasated. Perfusion Defect Conclusion There is no evidence of transient ischemic dilation (TID). Stress Function Comments Left ventricular systolic function post-stress is normal. Stress ejection fraction is 62%. Rest Function Comments Left ventricular function at rest was normal. Resting ejection fraction was 56%. Stress Combined Conclusion SCAN FINDINGS: Nuclear imaging of the left ventricle reveals normal cavity size at rest with no change with stress imaging. Myocardial perfusion imaging of the left ventricle revealed a medium in size and severe in intensity fixed perfusion defect in the apex, apical septal wall, mid inferoseptal wall, and mid anteroseptal wall. There is also a small in size and mild in intensity mostly fixed perfusion defect in the basal inferior wall. No reversible perfusion defects. The raw images demonstrated the presence of diaphragmatic attenuation CT attenuation correction was applied to the study which partially corrects the previously mentioned perfusion abnormality. The previously mentioned fixed perfusion defect in the basal inferior wall was completely corrected suggesting that he was secondary to a diaphragmatic attenuation artifact. However, even after attenuation correction was applied, there was a persistence of a medium in size and severe in intensity fixed perfusion defect in the apex, apical septal wall, mid inferoseptal wall, and mid anteroseptal wall. No reversible perfusion defects were noted on the attenuation corrected images. Gated SPECT imaging was performed which demonstrated hypokinesis of the apex and apical septal wall; and normal LV function with a calculated LVEF of 56% CT Findings There is evidence of multivessel coronary artery calcifications noted on the CT scan images obtained for attenuation correction. Perfusion Scoring Resting Summed Score: 12 Percent Normal: 17.65% Severe count reduction in the following segments: mid anteroseptal, mid inferoseptal, apical septal and apex. All other segments are normal. Attenuation corrected resting myocardial perfusion imaging Perfusion Scoring Stress Summed Score: 12 Percent Normal: 17.65% Severe count reduction in the following segments: mid anteroseptal, mid inferoseptal, apical septal and apex. All other segments are normal. Attenuation corrected stress myocardial perfusion imaging Perfusion Scores: SRS Score: 12 Percentage Abnormal: 17.65% Perfusion Scores: SSS Score: 12 Percentage Abnormal: 17.65% Perfusion Scores: SDS Score: 0 Percentage Abnormal: 0.00% Marina Sandoval NP CV STRESS PROCEDURES F inal Result * ECG 12 lead (10/26/2024 3:40 PM EST) [facility] Ventricular Rate ECG 76 BPM GEMUSE Atrial Rate 96 BPM GEMUSE QRS Duration 142 ms GEMUSE Q-T Interval 424 ms GEMUSE QTc 477 ms GEMUSE R [place] -73 degrees GEMUSE T [place] 105 degrees GEMUSE ECG Interpretation Ventricular-pa daniel rhythm Abnormal ECG When compared with ECG of 02-SEP-2023 14:02, Vent. rate has increased BY ?? 6 BPM Confirmed by MD [place], [place] ([id number]) on 10/26/2024 4:43:08 PM GEMUSE 10/26/2024 10:0 0 AM EST 10/26/2024 4:43 PM EST Marina Sandoval NP ECG ORDERABLES Edited Result - Final GEMUSE * Annual BMP Blood Test (11/22/2023) [facility] Annual BMP Blood Test abstracted Historical Provider HEALTH MAINTENANCE Final Result from Last 3 Months or Most Recently Relevant to Health Maintenance Insurance [employer] Care Teams Commuter Train Operator Relationship Specialty Start Date End Date Junie Hand NP [address] [facility] [place] [address] PCP - General 09/29/22
== END 2025-01-02 10:08 | disposition home or self-care (01) ==
LOC: HO.HPSW 09:12
PROVIDERS: PCP Nurse Practitioner Family; Referring Provider Nurse Practitioner Family; Visit Provider Nurse Practitioner Family
DX: J44.9 Chronic obstructive pulmonary disease, unspecified (principal); F17.210 Nicotine dependence, cigarettes, uncomplicated
CPT/HCPCS: 99204

== ENCOUNTER → 2025-01-02 09:12 | Outpatient (BNVA) | payer MEDICARE, SELFPAY | PROVIDERS: PCP Nurse Practitioner Family; Referring Provider Nurse Practitioner Family; Visit Provider Nurse Practitioner Family | DX: J44.9 Chronic obstructive pulmonary disease, unspecified (principal); F17.210 Nicotine dependence, cigarettes, uncomplicated | CPT/HCPCS: 99202 ==

== ENCOUNTER 2025-02-21 16:22 | Outpatient (REF) | payer MEDICARE, SELFPAY ==
--- NOTE | ~2025-02-21 | CT_ITS ---
EXAMINATION: CT CHEST WITHOUT CONTRAST CLINICAL INFORMATION: Smoker COMPARISON: None available. TECHNIQUE: Multidetector volumetric CT imaging of the chest was done. Axial MIP volume rendering provided. Sagittal and coronal reformatted images were obtained. This CT examination was performed using dose optimization techniques as appropriate, variously including the following: *Automated exposure control *Adjustment of mA and/or kV according to patient size (this includes techniques or standardized protocols for targeted exams where dose is matched to indication/reason for exam; i.e. extremities or head) *Use of iterative reconstruction technique DLP: 123 mGY*cm FINDINGS: LUNGS: Axial image 84/170: There is a flat 6 mm diameter solid nodular density in the superior segment right lower lobe. There are septal lines in the posterior segment right upper lobe. Lungs are inflated. There is linear scarring along the lateral lingula. There is also linear scarring in the base of the left lower lobe. There is mild ectasis as well. MEDIASTINUM: There are a few shotty mediastinal lymph nodes. The heart is deviated toward the left likely from volume loss in the left lung. There is a 2-lead pacemaker or defibrillator with leads into the coronary sinus and right atrium. There is clinical the left atrial appendage. CORONARY ARTERY CALCIFICATION: Present PLEURA: There are bandlike areas of pleural thickening in the left chest, most pronounced in the posterior mid left lower lobe and lower lateral region of the left upper lobe/lingula. There is a small right layering pleural effusion. AXILLA: No lymphadenopathy. UPPER ABDOMEN: Moderate vascular calcifications are present. No other abnormality is seen. OSSEOUS STRUCTURES: Bridging anterior osteophytes are present in the mid to lower thoracic spine Mediastinal wires are present. CT/CT chest wo IV con IMPRESSION: There are flat nodular densities that probably represent lymph nodes. Consider 12 month follow-up CT chest without contrast. There is bandlike areas of pleural thickening in the left chest wall and shift mediastinum toward the left suggesting pleural thickening related to prior trauma in the absence of prior trauma, this ileum is not entirely ruled out since thickening measures up to 1 cm. Small layering pleural effusion on the right. Fleischner guidelines were followed. Electronically signed by: Apolinar Bear MD 02/21/2025 05:45 PM EDT
--- OUTSIDE RECORDS SUMMARY | 2025-02-21 18:47 | XMS_ITS | Clinical Summary ---
Author Organization [facility] Address [address] [place] [address] Care Team Providers Care Car Shunter Name Role Phone Jenae Hahn MD Primary [...] MINI PEN NEEDLES 31G X 5 MM [facility] USE 1 PEN NEEDLE TO INJECT INSULIN [...] 69 10/22/2021 9:51 AM EST Temperature 36.6 C (97.9 F) 10/22/2021 9:51 AM EST Respiratory Rate - - Oxygen Saturation 99% [...] season) 2024 05/26/2021, 11/20/2020, 10/30/2020 Influenza Vaccine (Season Ended) 2025 05/26/2021 Hepatitis B Vaccines Aged Out No long er eligible based on patient's age to complete this topic RSV Ped < 20 months Aged Out No longe r eligible based on patient's age to complete this topic Care Teams Car Shunter Relationship Specialty Start Date End Date Jenae Hahn MD [address] [place], [place] PCP - General Pulmonary Disease 09/23/21
== END 2025-02-21 16:23 | disposition home or self-care (01) ==
LOC: HO.CT 16:22
PROVIDERS: PCP Nurse Practitioner Family; Visit Provider Nurse Practitioner Family
DX: F17.210 Nicotine dependence, cigarettes, uncomplicated (principal)
CPT/HCPCS: 71250

== ENCOUNTER → 2025-02-21 16:24 | Outpatient (BNV) | payer MEDICARE, SELFPAY | PROVIDERS: PCP Nurse Practitioner Family; Visit Provider Radiology Diagnostic Radiology | DX: J90 Pleural effusion, not elsewhere classified (principal); R91.8 Other nonspecific abnormal finding of lung field | CPT/HCPCS: 71250 ==

== ENCOUNTER 2025-03-07 14:30 | Outpatient (AMB) | payer MEDICARE, SELFPAY ==
--- OUTSIDE RECORDS SUMMARY | 2025-01-16 07:00 | XMS_ITS ---
Author Organization [facility] [place] Address [address] [address] Care Team Providers Care Boiling House Hand Name Role Phone Junie Hand Primary Care Provider Julissa Gaviria Unavailable [phone] Jorge Hernandez [phone] Encounters Encounter Location Date Provider Diagnosis [address] [address] 01/16/2025 Jorge Hernandez Plan Of Treatment Next Appt Details Provider Name:Julissa schmitt, 01/15/2026 11:00:00 AM, [address] [place] [address], [phone], Progress Notes * Errol RODRIGUES JrDOB:[birth year] (70 yo M)Acc No.[id number]:01/16/2025 Progress Note Patient: Pili SOSA Errol Harrison Jr Provider: Yesica Hernandez DPM :1955 A ge:69 Y S ex:Male Date:01/16/2025 Address:[address] [place] [phone] Pcp:Junie Hand Subjective: * Chief Complaints: * [...] 01/16/2025 Generated for Grecia alexis/Jayna/Neal on: 0 03/07/2025 03:03 PM EDT
--- NOTE | 2025-03-07 14:37 | A.OFFVIS_ITS ---
Vital Signs 03/07/25 14:38 Height 5 ft 8 in Weight 132 lb BMI 20.1 BP 110/52 L Blood Pressure Location Rt brachial Position Sitting Pulse 74 Pulse Source Pulse Oximeter Pulse Oximetry (%) 97 Oxygen Delivery Method Room Air Intake Visit Reasons: COPD/ CT FU Allergies No Known Allergies Allergy (Verified 03/07/25 14:41) HPI HPI COPD/ CT FU: Details: Errol is a pleasant 70-year-old male, current smoker, with 54+ pack year history with underlying COPD, coronary artery disease status post CABG x4, atrial fibrillation, hypertension, hyperlipidemia and heart failure with preserved EF. He was suboptimally controlled on Spiriva and uses albuterol MDI 2-3 times per day, switched to Trelegy with notable improvements in dyspnea. He continues with productive cough and intermittent wheezing. At the last visit was given abx and prednisone with decrease in cough. He has since been evaluated by cardiology who increased lasix dose about three weeks ago now on 40 mg with good effect. Today he presents to review CT chest results. He denies any visits to urgent care or hospitalizations related to respiratory distress since the last visit. [facility] Medical History (Updated 02/23/25 @ 09:13 by Shannon Rosales NP) Diabetes mellitus Social History Patient Tobacco Use Status: Current everyday Tobacco user Cigarette Packs Per Day: 1 Cigarettes Per Day: 20 Review of Systems Const Denies chills, Denies excessive sweating, Denies fever(s), Denies headache(s) and Denies night sweats Eyes Denies dry eyes, Denies irritation and Denies itchy eyes ENT Reports Normal hearing present and Denies headache(s) Card Denies chest pain, Denies chest pain at rest, Denies chest pain with activity, Denies claudication, Denies leg edema, Denies orthopnea and Denies paroxysmal nocturnal dyspnea Resp Denies change in phlegm color, Denies chest congestion, Reports cough, Denies hemoptysis, Denies excessive phlegm production, Denies pain on inspiration, Denies pain with cough, Denies stridor and Reports wheezing Musc Denies myalgias Neuro Reports Normal hearing present and Denies headache(s) Endo Denies excessive sweating Ezekiel/Lymph Denies lymphadenopathy Aller/Immun Denies itchy eyes, Denies seasonal rhinorrhea and Reports wheezing Physical Exam Vital Signs: Last Vital Signs Pulse 74 03/07/25 14:38 BP 110/52 L 03/07/25 14:38 Pulse Ox 97 03/07/25 14:38 Oxygen Delivery Method Room Air 03/07/25 14:38 BMI result Body Mass Index 20.1 Const General: cooperative, comfortable, no acute distress and alert Orientation/consciousness: patient oriented x3 HEENT Head: Yes normal to inspection, Yes normocephalic and Yes atraumatic Ears: hearing grossly normal bilaterally and external ears normal Eyes General: appearance normal, both eyes and all related structures Eyelids: Yes eyelids normal Sclerae: sclerae normal EOM: EOMs intact bilaterally Neck Neck: Yes normal visual inspection and Yes no lymphadenopathy Lymphatic: no lymphadenopathy noted Chest Chest palpation & inspection: normal inspection of the chest Resp Effort & Inspection: normal respiratory effort, able to speak in complete sentences, no audible wheezes, no stridor, not tachypneic, no tripod positioning, no use of accessory muscles and prolonged expiratory phase Auscultation: no crackles, rhonchi and diminished lung sounds Cardio Jugular venous distension: no JVD Rate: regular rate Rhythm: regular rhythm Skin Other: warm, dry General skin exam: no rashes or lesions noted Neuro General: patient oriented x3 Cranial nerves: Yes Normal hearing present Cognition (Neuro): normal cognition Gait exam (Neuro): Normal gait present Extrem General: Yes normal to inspection, Yes capillary refill normal, Yes no clubbing, cyanosis or edema and Yes no pedal edema Psych Appearance: grossly normal and well kempt Speech and movement: Normal speech and movement present and Clear speech present Affect: normal affect Attitude: cooperative Thought process: Normal thought process present Thought content: Normal thought content present Insight: Good insight present (Psych) Judgement: Good judgement present (Psych) Results Reviewed Results Reviewed: [address] [address] [address] Scan Report Signed Patient: Errol Rodrigues MR#: [id number] : 1955 Acct:[id number] Age/Sex: 70 / M ADM Date: 02/21/25 Loc: HO.CT Attending Dr: Shannon Rosales NP Ordering Physician: Shannon Rosales NP Date of Service: 02/21/25 Procedure(s): CT chest wo IV con Accession Number(s): [id number] cc: Junie Hand MORTGAGE PROCESSING MANAGER; Shannon Rosales NP~ Report Number: [id number]: Total DLP = 123.00 mGy-cm EXAMINATION: CT CHEST WITHOUT CONTRAST CLINICAL INFORMATION: Smoker COMPARISON: None available. TECHNIQUE: Multidetector volumetric CT imaging of the chest was done. Axial MIP volume rendering provided. Sagittal and coronal reformatted images were obtained. This CT examination was performed using dose optimization techniques as appropriate, variously including the following: *Automated exposure control *Adjustment of mA and/or kV according to patient size (this includes techniques or standardized protocols for targeted exams where dose is matched to indication/reason for exam; i.e. extremities or head) *Use of iterative reconstruction technique DLP: 123 mGY*cm FINDINGS: LUNGS: Axial image 84/170: There is a flat 6 mm diameter solid nodular density in the superior segment right lower lobe. There are septal lines in the posterior segment right upper lobe. Lungs are inflated. There is linear scarring along the lateral lingula. There is also linear scarring in the base of the left lower lobe. There is mild ectasis as well. MEDIASTINUM: There are a few shotty mediastinal lymph nodes. The heart is deviated toward the left likely from volume loss in the left lung. There is a 2-lead pacemaker or defibrillator with leads into the coronary sinus and right atrium. There is clinical the left atrial appendage. CORONARY ARTERY CALCIFICATION: Present PLEURA: There are bandlike areas of pleural thickening in the left chest, most pronounced in the posterior mid left lower lobe and lower lateral region of the left upper lobe/lingula. There is a small right layering pleural effusion. AXILLA: No lymphadenopathy. UPPER ABDOMEN: Moderate vascular calcifications are present. No other abnormality is seen. OSSEOUS STRUCTURES: Bridging anterior osteophytes are present in the mid to lower thoracic spine Mediastinal wires are present. CT/CT chest wo IV con IMPRESSION: There are flat nodular densities that probably represent lymph nodes. Consider 12 month follow-up CT chest without contrast. There is bandlike areas of pleural thickening in the left chest wall and shift mediastinum toward the left suggesting pleural thickening related to prior trauma in the absence of prior trauma, this ileum is not entirely ruled out since thickening measures up to 1 cm. Small layering pleural effusion on the right. Fleischner guidelines were followed. Electronically signed by: Apolinar Bear MD 02/21/2025 05:45 PM EDT RP Dictated By: Apolinar Bear MD Signed By: <Electronically signed by Apolinar Bear MD in OV> 02/21/25 1745 DD/ 1638 TD/TT: 02/21/25 1651 Customer Assistance Representative: Assessment & Plan Assessment & Plan (1) COPD (chronic obstructive pulmonary disease): Code(s): J44.9 - Chronic obstructive pulmonary disease, unspecified Category: Medical (2) Nicotine dependence, cigarettes, uncomplicated: Code(s): F17.210 - Nicotine dependence, cigarettes, uncomplicated Category: Medical (3) Pulmonary nodule: Code(s): R91.1 - Solitary pulmonary nodule Category: Medical Plan Errol reports overall improvements since starting Trelegy however continues with dyspnea, wheezing and cough. Will send nebulizer for home use with DuoNeb. Reviewed PFT which revealed moderate obstructive defect as well as restrictive defect. Reviewed chest CT which revealed a flat 6 mm diameter solid nodular density in the superior segment right lower lobe as well as a few shotty mediastinal lymph nodes and bandlike areas of pleural thickening in the left chest, most pronounced in the posterior mid left lower lobe and lower lateral region of the left upper lobe/lingula. Will obtain images from prior CT chest performed at [facility] in 2023. May need to repeat in 3-6 months, if no significant changes will repeat in one year. Smoking cessation reviewed and patient working towards quitting. All questions were answered and patient is in agreement of plan. Will follow up in 4-6 weeks or sooner if needed. Medications: New ipratropium-albuterol 0.5 mg-3 mg(2.5 mg base)/3 mL 3 mL inhalation Q6H PRN 180 mL 6RF wheezing Coding Level of Care Code Est Pt Level 4 (46588) Diagnoses COPD (chronic obstructive pulmonary disease) J44.9 Nicotine dependence, cigarettes, uncomplicated F17.210 Pulmonary nodule R91.1
[2025-03-07 14:38] VITALS: BP 110/52; PULSE 74; O2SAT 97; BMI 20.1
--- OUTSIDE RECORDS SUMMARY | 2025-03-07 15:03 | XMS_ITS | Clinical Summary ---
Author Organization [facility] Address [address] [place] [address] Care Team Providers Care Business Support Administrator Name Role Phone Jenae Hahn MD Primary [...] MINI PEN NEEDLES 31G X 5 MM [facility] USE 1 PEN NEEDLE TO [...] 2024 05/26/2021, 11/20/2020, 10/30/2020 Influenza Vaccine (#1) 2025 05/26/2021 Hepatitis B Vaccines Aged Out No long er eligible based on patient's age to complete this topic RSV Ped < 20 months Aged Out No longe r eligible based on patient's age to complete this topic Care Teams Business Support Administrator Relationship Specialty Start Date End Date Jenae Hahn MD [address] [place], [place] PCP - General Pulmonary Disease 09/23/21
--- OUTSIDE RECORDS SUMMARY | 2025-03-07 15:03 | XMS_ITS | Clinical Summary ---
Author Organization [address] [place] [address] Address [address] [place] [address] Phone Care Team Providers Care Marine Engineering Consultant Name Role Phone Junie Hand NP Primary Care Provider [phone] Allergies No known active allergies Medications acetaminophen [...] mg by mouth every other day. Active budesonide-glycopy r-formoterol (Breztri Aerosphere) 160-9-4.8 mcg/actuation HFA aerosol inhaler [...] Take 1 tablet by mouth daily. Active traZODone (DESYREL) 100 mg tablet Take 100 mg by mouth at bedtime. Active carvediloL (COREG) 3.125 mg tablet Take 1 tablet (3.125 mg total) by mouth 2 (two) times a day with meals. 180 each 3 4 025 Active sacubitriL-valsart an (Entresto) 24-26 mg per tablet Take 1 [...] isosorbide mononitrate (IMDUR) 30 mg 24 hr tabletIndications: Coronary artery disease, unspecified vessel or lesion type, unspecified whether angina present, unspecified whether [place] or transplanted heart,Ischemic cardiomyopathy Take 1 tablet (30 mg total) by mouth 1 (one) time each day. Do not crush or chew. 30 each 11 5 026 Active torsemide 40 mg tablet Take 40 mg by mouth 1 (one) time each day. 90 tablet 3 5 Active torsemide (DEMADEX) 20 mg tablet Take 1 Tablet by mouth daily. Dose decrease 4 025 Discontin ued(Presc riber Discontin ued) Hospital, Clinic, or Other Facility Administered Medication Ordered Dose Route Frequency Start Date End Date Status perflutren lipid microsphere (DEFINITY) 1.3 mL in sodium chloride 0.9% 8.7 mL injectionIndications:Co ronary artery disease, unspecified vessel or lesion type, unspecified whether angina present, unspecified whether [place] or transplanted heart,Ischemic cardiomyopathy 10 mL IV [...] Future COPD (chronic obstructive pu lmonary disease) (CMS/[facility] V24, CMS/[facility] V28) 04/23/2021 Dizziness 04/23/2021 Hiatal hernia 04/23/2021 [...] Encounters Date Type Department Care Team Description 02/13/2025 5:50 PM EDT Ancillary Procedure [facility] - [address] [place] [address] 01/18/2025 Telephone [facility] - [address] [place] [address] Jeffrey Delarosa MD Results (Echo results) 01/16/2025 10:35 AM EDT Ancillary Procedure [facility] - [address] [place] [address] 01/12/2025 Telephone [facility] - [address] [place] [address] Renuka Howe MA 01/05/2025 Telephone [facility] - [address] [place] [address] Rex Mckeon MA Results 01/04/2025 12:22 PM EDT - 01/04/2025 11:59 PM EDT Hospital Encounter [facility] Pulmonary [address] [place] [address] Shortness of breath Discharge Disposition: Home or Self Care 01/03/2025 12:30 PM EDT Ancillary Procedure [facility] - [address] [place] [address] Coronary artery disease, unspecified vessel or lesion type, unspecified whether angina present, unspecified whether [place] or transplanted heart; Ischemic cardiomyopathy 12/14/2024 10:30 AM EDT Ancillary Procedure [facility] - [address] [place] [address] 12/13/2024 Telephone [facility] - [address] [place] [address] Seth Bob MD from Last 3 Months Family History Medical [...] Sign Reading Time Taken Comments Blood Pressure 109/64 01/03/2025 1:30 PM EDT Pulse 90 11/30/2024 9:24 AM EDT Temperature - - Respiratory Rate - - Oxygen Saturation 97% 11/30/2024 9:24 AM EDT Inhaled Oxygen Concentration - - Weight 58.5 kg (129 lb) 01/03/2025 1:30 PM EDT Height 172.7 cm (5' 8 ) 01/03/2025 1:30 PM EDT Body Mass Index 19.61 01/03/2025 1:30 PM EDT Plan of Treatment Upcoming Encounters Date Type Department Care Team (Late st Contact Info) Description 07/10/2025 11:00 AM EST Ancillary Procedure [facility] - [facility] [address] [facility] [address] [place] [address] Health Maintenance Due Date Last Done Comments [...] 2024 05/05/2024, 06/04/2023, 09/02/2022, Additional history exists Influenza Vaccine (#1) 2025 , 05/10/2023, 05/29/2022, Additional history exists Diabetes: Annual GFR (Glomerular Filtration Rate) 02/14/2026 02/14/2025, 02/02/2025, 01/24/2025, Additional history exists Hypertension/CHF/CAD Annual BMP Blood Test 02/14/2026 02/14/2025, 02/02/2025, 01/24/2025, Additional history exists DTaP,Tdap,and Td Vaccines (2 - Td or Tdap) 05/05/2033 05/05/2023 RSV Immunization Adult Patients Completed 07/14/2023 Zoster Vaccines Completed 07/14/2023, 05/10/2023 Pneumococcal Vaccine: 50+ Years Completed 05/05/2024, 06/11/2022, [...] this topic Medical Devices Implanted Type Area Plug Grower Device Identifier Shelf Expiration Date Model / Serial / Lot Cardiac Recreational Therapist-D Icd- 2 Implanted:05/2022 by Seth Bob MD (Quantity not on file) Cardiac DRILL RUNNER-D ICD Left: Chest MEDTRONIC - CARDIAC RHYTH-CRDM CLARIA QUAD [id number] / [id number] / Medt-Card Claria Mri Quad Crtd [id number] Implanted:05/2022 (Quantity not on file) Cardiac DRILL RUNNER-D ICD MEDTRONIC - CARDIAC RHYTH-CRDM CLARIA MRI QUAD CRTD [id number] / [id number] / Procedures Procedure Name Priority Date/Time Associated Diagnosis Comments B-TYPE NATRIURETIC PEPTIDE Routine 02/14/2025 8:05 AM EDT Shortness of breath MAGNESIUM Routine 02/14/2025 8:05 AM EDT Shortness of breath BASIC METABOLIC PANEL Routine 02/14/2025 8:05 AM EDT Shortness of breath CARDIAC DEVICE CHECK- REMOTE- MURJ Routine 02/13/2025 5:48 PM EDT B-TYPE NATRIURETIC PEPTIDE Routine 02/02/2025 8:01 AM EDT Shortness of breath BASIC METABOLIC PANEL Routine 02/02/2025 8:01 AM EDT Shortness of breath EXTERNAL CLINICAL LAB Routine 01/24/2025 9:29 AM EDT B-TYPE NATRIURETIC PEPTIDE Routine 01/24/2025 8:32 AM EDT Shortness of breath BASIC METABOLIC PANEL Routine 01/24/2025 8:32 AM EDT Shortness of breath CARDIAC DEVICE CHECK- REMOTE- MURJ Routine 01/16/2025 10:30 AM EDT HC SPIROMETRY BRONCHODILATION RESPONSIVENESS PRE/POST BRONCHODILATOR ADMINISTRATION Routine 01/04/2025 1:28 PM EDT Shortness of breath TRANSTHORACIC ECHOCARDIOGRAM (TTE) COMPLETE W/ CONTRAST Routine 01/03/2025 1:30 PM EDT Coronary artery disease, unspecified vessel or lesion type, unspecified whether angina present, unspecified whether [place] or transplanted heart Ischemic cardiomyopathy CARDIAC DEVICE CHECK- REMOTE- MURJ Routine 12/14/2024 10:29 AM EDT from Last 3 Months Results * (ABNORMAL) B-type natriuretic peptide (02/14/2025 8:05 AM EDT) Only the most recent of3 resultswithin the time period is included. B-Type Natriuretic Peptide 663.3(H) 0.0 - 100.0 pg/mL [facility] Comment:[employer] ADVIA Cent[facility] XP methodology Blood Venous blood specimen / Unknown 02/14/2025 8:05 AM EDT 02/14/2025 Narrative [facility] 1 - 02/15/2025 7:06 AM EDT Performed at: [address] [place] [id number] Editor Book: Ilene Rodríguez MD, Phone: [phone] Jeffrey Delarosa MD LAB BLOOD ORDERABLES Bette l Result Performing Organization Address City/[facility] Co de Phone Number [facility] 1 * Magnesium (02/14/2025 8:05 AM EDT) [facility] Magnesium 1.9 1.6 - 2.3 mg/dL [facility] 1 Blood Venous blood specimen / Unknown 02/14/2025 8:05 AM EDT 02/14/2025 Narrative [facility] 1 - 02/15/2025 8:08 AM EDT Performed at: [address] [place] [id number] Editor Book: Ilene Rodríguez MD, Phone: [phone] Jeffrey Delarosa MD LAB BLOOD ORDERABLES Bette l Result Performing Organization Address City/[facility]/ZIP Co de Phone Number [facility] 1 * (ABNORMAL) Basic metabolic panel (02/14/2025 8:05 AM EDT) Only the most recent of3 resultswithin the time period is included. [facility] Glucose 111(H) 70 - 99 mg/dL [facility] 1 Blood Urea Nitrogen (BUN) 52(H) 8 - 27 mg/dL [facility] 1 Creatinine 1.12 0.76 - 1.27 mg/dL [facility] 1 eGFR 70 >59 mL/min/1.7 3 [facility] 1 BUN/Creatinine Ratio 46(H) 10 - 24 [facility] 1 Sodium 135 134 - 144 mmol/L [facility] 1 Potassium 4.8 3.5 - 5.2 mmol/L [facility] 1 Chloride 101 96 - 106 mmol/L [facility] 1 Carbon Dioxide 22 20 - 29 mmol/L [facility] 1 Calcium 9.8 8.6 - 10.2 mg/dL [facility] 1 Blood Venous blood specimen / Unknown 02/14/2025 8:05 AM EDT 02/14/2025 Narrative [facility] 1 - 02/15/2025 4:06 AM EDT Performed at: 01 - [address] [id number] Editor Book: Ilene Rodríguez MD, Phone: [phone] us Jeffrey Delarosa MD LAB BLOOD ORDERABLES Bette garcia Result [facility] * Cardiac device check - Remote- MURJ (02/13/2025 5:48 PM EDT) Only the most recent of3 resultswithin the time period is included. Date Time Interrogation Session [id number] CV DEVICE CHECK Type Interrogation Session Remote CV DEVICE CHECK Implantable Pulse Generator Plug Grower MDT CV DEVICE CHECK Implantable Pulse Generator Type DRILL RUNNER-D CV DEVICE CHECK Implantable Pulse Generator Model Claria MRI Quad CRTD [id number] CV DEVICE CHECK Implantable Pulse Generator Serial Number [id number] CV DEVICE CHECK Implantable Pulse Generator Implant Date 20220608 CV DEVICE CHECK Battery Remaining Longevity 51.0 CV DEVICE CHECK Battery Voltage 2.960 CV D EVICE CHECK Battery STATOR WINDER Trigger 2.727 CV DEVICE CHECK Battery Status Middle of Service CV DEVICE CHECK Capacitor Charge Time 3.823 CV DEVICE CHECK Lyndon Statistic RA Percent Paced 0.00 CV DEVICE CHECK Lead Channel Impedance Value 4,047 CV DEVICE CHECK Lead Channel Sensing Intrinsic Amplitude 14.750 CV DEVICE CHECK Lead Channel Setting Sensing Sensitivity 0.30 CV DEVICE CHECK Lead Channel Impedance Value 323 CV DEVICE CHECK Lead Channel Pacing Threshold Amplitude 0.750 CV DEVICE CHECK Lead Channel Pacing Threshold Pulse Width 0.4 CV DEVICE CHECK Lead Channel RV Pacing Threshold Date 2025-02-13 CV DEVICE CHECK Lead Channel Setting Pacing Amplitude 2.000 CV DEVICE CHECK Lead Channel Setting Pacing Pulse Width 0.4 CV DEVICE CHECK Lead Channel Impedance Value 304 CV DEVICE CHECK Lead Channel Pacing Threshold Amplitude 0.750 CV DEVICE CHECK Lead Channel Pacing Threshold Pulse Width 0.4 CV DEVICE CHECK Lead Channel Pacing Threshold Date 2025-02-13 CV DEVICE CHECK Lead Channel Setting Pacing Amplitude 1.250 CV DEVICE CHECK Lead Channel Setting Pacing Pulse Width 0.4 CV DEVICE CHECK Lyndon Setting Mode (NBG Code) VVIR CV DEVICE CHECK Ventricular chambers paced during DRILL RUNNER pacing. BiV CV DEVICE CHECK Lyndon Setting Lower Rate Limit 70 CV DEVICE CHECK Lyndon Setting Maximum Sensor Rate 120 CV DEVICE CHECK DRILL RUNNER LV-RV Delay 0 CV D EVICE CHECK Therapy Statistic Recent Shocks Delivered 0 CV DEVICE CHECK Therapy Statistic Recent Shocks Aborted 0 CV DEVICE CHECK Therapy Statistic Recent ATP Delivered 0 CV DEVICE CHECK RV HV Impedance 47 CV D EVICE CHECK Zone Setting Type [...] 6 CV DEVICE CHECK Date of Service 2025-04-18 CV DEVICE CHECK Anatomical Region Laterality Modality Device Interroga tion 02/13/2025 1:23 AM EDT Impressions 02/13/2025 10:24 AM EDT Heart Failure Diagnostic: Stable * Heart failure diagnostics assessed through the device * Status: Stable * Thoracic Impedance stable * No overt HF present Narrative Procedure Note Seth Bob MD - 02/13/2025 IMPRESSION: Heart Failure Diagnostic: Stable * Heart failure diagnostics assessed through the device * Status: Stable * Thoracic Impedance stable * No overt HF present us Seth Bob MD CV IMPLANTABLE CARDIAC DEVICE PROCEDURES Final Result * External clinical lab (01/24/2025 9:29 AM EDT) us Historical Provider LAB BLOOD ORDERABLES Bette l Result * Pulmonary function testing: Carbon Monoxide Diffusing Capacity, Nitrogen Wash Out, Spirometry with Bronchodilator (01/04/2025 1:28 PM EDT) Micki Flores MD - 01/04/2025 9:32 PM EDT FEV1/FVC 60%. FEV1 1.62 at 58% with a Z-score of -2.51 FVC 72%. No bronchodilator response. TLC 73% w/ T-score -2.12. RV 91%. RV/TLC 125%. DLCO 38% (adjusted 50%). Moderate obstruction. Mild restriction. And moderate decrease in diffusion. 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 us Marina Sandoval SUPERVISOR INSPECTION AND TESTING PFT ORDERABLES Final Result * (ABNORMAL) TRANSTHORACIC ECHOCARDIOGRAM (TTE) COMPLETE W/ CONTRAST (01/03/2025 1:30 PM EDT) BSA 1.68 m2 CV PACS LV EDV (A2C) 103 mL CV PACS LV EDV (A4C) 122 mL CV PACS LV Diastolic Volume (BP) 113 62 - 150 mL CV PACS LV ESV (A2C) 67 mL CV PACS LV ESV (A4C) 69 mL CV PACS LV Systolic Volume (BP) 67(A) 21 - 61 mL CV PACS IVSD 1.2(A) 0.6 - 1.0 cm CV PACS LVIDD 4.7 4.2 - 5.8 cm CV PACS LVIDS 3.3 2.5 - 4.0 cm CV PACS LVOT Diameter 2.1 cm CV PACS LVOT Mean Juan Luis 0.8 m/s CV PACS LVOT Mean Grad 2 mmHg CV PACS LVOT Peak VTI 23.1 cm CV PACS LVOT Peak Juan Luis 1.2 m/s CV PACS LVOT Peak Gradient 6 mmHg CV PACS LVPWD 1.2(A) 0.6 - 1.0 cm CV PACS Ejection Fraction (A2C) 35 % CV PACS Ejection Fraction (A4C) 43 % CV PACS Ejection Fraction (BP) 41 % CV PACS LVOT Area 3.5 cm2 CV PACS LVOT Stroke Volume 80 mL CV PACS Left Atrium Minor [place]enton 6.4 cm CV PACS Left Atrium Major [place] 6.5 cm CV PACS LA Area Sys (A2C) 27 cm2 CV PACS LA Area Sys (A4C) 23 cm2 CV PACS LA Volume (BP) 77 mL CV PACS AV Mean Gradient 26 mmHg CV PACS Ao VTI 77.2 cm CV PACS AV Peak Juan Luis 3.3 m/s CV PACS AV Peak Gradient 44 mmHg CV PACS AV Area Continuity Equation 1.0 cm2 CV PACS AV Area Peak Velocity 1.3 cm2 CV PACS Aortic Root 3.0 cm CV PACS Ascending Aorta 3.3 cm CV PACS IVC Proximal 1.4 cm CV PACS PV Acceleration Time 88 ms CV PACS PV Peak Velocity 1.0 m/s CV PACS PV Peak Gradient 4 mmHg CV PACS RV S' 10 cm/s CV PACS TAPSE 16 mm CV PACS TR Peak Velocity 2.90 m/s CV PACS TR Peak Gradient 35 mmHg CV PACS LV ESV Index (A4C) 41 mL/m2 CV PACS LV EDV Index (A4C) 72 mL/m2 CV PACS LVOT Stroke Index 47 mL/m2 CV PACS Relative Wall Thickness ratio 0.51(A) 0.24 - 0.42 CV PACS LVOT:AV VTI Index 0.30 CV PACS FS 30 % CV PACS LV Mass 2D 212(A) 96 - 200 g CV PACS Ascending Aorta Index 1.94 cm/m2 CV PACS LVOT flow 277 mL/s CV PACS CARLOS EDUARDO Index (VTI) 0.61 cm2/m2 CV PACS CARLOS EDUARDO Index (Pk Juan Luis) 0.76 cm2/m2 CV PACS LVIDD Index 2.76 cm/m2 CV PACS LVIDS Index 1.94 cm/m2 CV PACS Aortic Root Index 1.76 cm/m2 CV PACS AV Velocity Ratio 0.36 CV PACS LV Systolic Volume Index (BP) 39(A) 11 - 31 mL/m2 CV PACS LV Diastolic Volume Index (BP) 66(A) 34 - 74 mL/m2 CV PACS LA Volume Index (BP) 45 mL/m2 CV PACS LV Mass Index 2D 125 50 - 102 g/m2 CV PACS LV EDV Index (A2C) 61 mL/m2 CV PACS LV ESV Index (A2C) 39 mL/m2 CV PACS Right Ventricular Peak Systolic Pressure 42 mmHg CV PACS Est. RA Pressure 8 mmHg CV PACS LA Volume (A-L) 71 mL CV PACS LA Volume Index (A-L) 42 mL/m2 CV PACS LVOT Cardiac Output 0.0 L/min CV PACS LVOT Cardiac Index 0.0 L/min/m2 CV PACS RV Diastolic Basal Dimension 4.1 2.5 - 4.1 cm CV PACS RV Free Wall Peak S' 10 cm/s CV PACS AV Area 2D 1.3 cm2 CV PACS CARLOS EDUARDO Index (2D) 0.76 cm2/m2 CV PACS Inferior Vena Cava Diameter At Expiration 1.4 cm CV PACS IVC Expiration Index 0.82 cm/m2 CV PACS LV EF MOD 2C 35 % CV PACS LV EF 4C A-L 43 % CV PACS LV EDV 4C A-L 125 mL CV PACS LV Length Sys (A4C) 7.2 cm CV PACS LV Length Kumar (A4C) 8.2 cm CV PACS AV Area Index 0.8 CV PACS Aortic Root Dimension Index 1.8 cm/m2 CV PACS Left Ventricular Stroke Volume by 2-D Biplane-MOD 46 mL CV PACS RA Major [place] 6.1 cm CV PACS RA Major [place]enton Index 3.6(A) 2.1 - 2.7 cm/m2 CV PACS RA 2D Volume 46 mL CV PACS RA 2D Volume Index 27 18 - 32 mL/m2 CV PACS RA Area 18.6 cm2 CV PACS Anatomical Region Laterality Modality Ultrasound Narrative 01/12/2025 6:10 PM EDT Left ventricle cavity size is normal. There is mild hypertrophy. Systolic function is mildly decreased with an ejection fraction of 45-50%. Akinesis of the mid-distal septal wall into the apex. Left atrial pressure is inconclusive. Right ventricle cavity is normal. Right ventricular systolic function is low normal. The RVSP is estimated at 42 mmHg. Aortic valve demonstrates moderate stenosis. Mitral valve demonstrates moderate regurgitation with an eccentrically directed jet. Compared to the prior echo from 2022, the LVEF has continued to improve. Aortic stenosis still appears in moderate range. Left Ventricle Left ventricle cavity size is normal. There is mild hypertrophy. Systolic function is mildly decreased with an ejection fraction of 45-50%. Akinesis of the mid-distal septal wall into the apex. Left atrial pressure is inconclusive. Right Ventricle Right ventricle cavity appears normal. Systolic function is low normal. ICD wire is present in the right ventricle. Left Atrium Left atrium volume index is moderately increased. Right Atrium Right atrium cavity is normal. ICD wire is present in the right atrium. IVC/SVC RA pressures is estimated to be 8 mmHg (IVC diameter <21 mm and decreases <50% during inspiration). Mitral Valve The leaflets are mildly thickened. There is annular calcification. There is moderate regurgitation with an eccentrically directed jet. There is no evidence of mitral valve stenosis. Tricuspid Valve The leaflets exhibit normal excursion. There is mild regurgitation. The RVSP is estimated at 42 mmHg. Aortic Valve The aortic valve is trileaflet. The leaflets exhibit moderately reduced excursion. The leaflets are moderately calcified. There is no regurgitation. There is moderate stenosis. The aortic valve peak velocity is 3.3 m/s. The mean gradient is 26 mmHg. Pulmonic Valve Visualized portions of the pulmonic valve appear normal. There is trace pulmonic valve regurgitation. Ascending Aorta The aorta appears normal in size. Pericardium Pericardium appears normal. Study Details Overall the study quality was technically difficult. Definity contrast was given to enhance imaging. Study was difficult due to: poor endocardial visualization. Marina Sandoval NP CV ECHO PROCEDURES Fin al Result from Last 3 Months Insurance [employer] Care Teams Marine Engineering Consultant Relationship Specialty Start Date End Date Junie Hand NP [address] [place] ADULT [facility] [place] [address] PCP - General 09/29/22
== END 2025-03-07 15:43 | disposition home or self-care (01) ==
LOC: HO.HPSW 14:31
PROVIDERS: PCP Nurse Practitioner Family; Visit Provider Nurse Practitioner Family
DX: J44.9 Chronic obstructive pulmonary disease, unspecified (principal); F17.210 Nicotine dependence, cigarettes, uncomplicated; R91.1 Solitary pulmonary nodule
CPT/HCPCS: 99214

== ENCOUNTER → 2025-03-07 14:30 | Outpatient (BNVA) | payer MEDICARE, SELFPAY | PROVIDERS: PCP Nurse Practitioner Family; Visit Provider Nurse Practitioner Family | DX: R91.1 Solitary pulmonary nodule (principal); J44.9 Chronic obstructive pulmonary disease, unspecified; F17.210 Nicotine dependence, cigarettes, uncomplicated; I48.91 Unspecified atrial fibrillation; I10 Essential (primary) hypertension; E78.5 Hyperlipidemia, unspecified; I50.9 Heart failure, unspecified; R06.09 Other forms of dyspnea; R06.2 Wheezing | CPT/HCPCS: 99212 ==

== ENCOUNTER 2025-04-25 14:45 | Outpatient (AMB) | payer MEDICARE, SELFPAY ==
--- OUTSIDE RECORDS SUMMARY | 2025-01-16 07:00 | XMS_ITS ---
Author Organization [facility] [place] Address [address] [place] [address] Care Team Providers Care Transit Mixer Operator Name Role Phone Junie Hand Primary Care Provider Julissa Gaviria Unavailable [phone] Jorge Hernandez [phone] Encounters Encounter Location Date Provider Diagnosis [address] [address] 01/16/2025 Jorge Hernandez Plan Of Treatment Next Appt Details Provider Name:Julissa schmitt, 01/15/2026 11:00:00 AM, [address] [place] [address], [phone], Progress Notes * Errol RODRIGUES JrDOB:[birth year] (70 yo M)Acc No.[id number]:01/16/2025 Progress Note Patient: Pili SOSA Errol Harrison Jr Provider: Yesica Hernandez DPM :1955 A ge:69 Y S ex:Male Date:01/16/2025 Address:[address] [place] [id number] Pcp:Junie Hand Subjective: * Chief Complaints: * [...] DPM Date: 0 01/16/2025 Generated for Grecia alexis/Jayna/Neal on: 0 04/25/2025 04:08 PM EDT
--- OUTSIDE RECORDS SUMMARY | 2025-04-20 09:20 | XMS_ITS | Encounter Summary ---
Author Organization [facility] Address [address] [place] [address] Care Team Providers Care Station Examiner Name Role Phone Junie Hand NP Primary Care Provider [phone] Encounter Details Date Type Department Care Team (Late st Contact Info) Description 04/20/2025 9:20 AM EDT Ancillary Procedure [facility] - [address] [facility] [address] [place] [address] Social History Tobacco Use Types Packs/Day Years Used Date Smoking Tobacco: Every Day Cigarettes Smokeless Tobacco: Never Alcohol Use Standard Drinks/Week Comments Not Currently 0 (1 standard drink = 0.6 oz pur e alcohol) Sex and Gender Information Value Date Recorded Sex Assigned at Not on file Legal Sex Male 7:02 AM EST Gender Identity Not on file Sexual Orientation Not on file documented as of this encounter Plan of Treatment Upcoming Encounters Date Type Department Care Team (Late st Contact Info) Description 07/10/2025 11:00 AM EST Ancillary Procedure [facility]iology [facility] - [address] [facility] [address] [place] [address] documented as of this encounter Procedures Procedure Name Priority Date/Time Associated Diagnosis Comments CARDIAC DEVICE CHECK- REMOTE- MURJ Routine 04/20/2025 9:17 AM EDT documented in this encounter Results * Cardiac device check - Remote- MURJ (04/20/2025 9:17 AM EDT) Date Time Interrogation Session [id number] CV DEVICE CHECK Type Interrogation Session Remote CV DEVICE CHECK Implantable Pulse Generator Charge Manager MDT CV DEVICE CHECK Implantable Pulse Generator Type OILER HELPER-D CV DEVICE CHECK Implantable Pulse Generator Model [place] MRI Quad CRTD [id number] CV DEVICE CHECK Implantable Pulse Generator Serial Number [id number] CV DEVICE CHECK Implantable Pulse Generator Implant Date 20220608 CV DEVICE CHECK Battery Remaining Longevity 49.0 CV DEVICE CHECK Battery Voltage 2.940 CV D EVICE CHECK Battery TEACHER LEARNING DISABLED Trigger 2.727 CV DEVICE CHECK Battery Status Middle of Service CV DEVICE CHECK Capacitor Charge Time 3.873 CV DEVICE CHECK Lyndon Statistic RA Percent Paced 0.00 CV DEVICE CHECK Lead Channel Impedance Value 4,047 CV DEVICE CHECK Lead Channel Sensing Intrinsic Amplitude 15.625 CV DEVICE CHECK Lead Channel Setting Sensing Sensitivity 0.30 CV DEVICE CHECK Lead Channel Impedance Value 342 CV DEVICE CHECK Lead Channel Pacing Threshold Amplitude 0.500 CV DEVICE CHECK Lead Channel Pacing Threshold Pulse Width 0.4 CV DEVICE CHECK Lead Channel RV Pacing Threshold Date 2025-04-17 CV DEVICE CHECK Lead Channel Setting Pacing Amplitude 2.000 CV DEVICE CHECK Lead Channel Setting Pacing Pulse Width 0.4 CV DEVICE CHECK Lead Channel Impedance Value 323 CV DEVICE CHECK Lead Channel Pacing Threshold Amplitude 0.750 CV DEVICE CHECK Lead Channel Pacing Threshold Pulse Width 0.4 CV DEVICE CHECK Lead Channel Pacing Threshold Date 2025-04-17 CV DEVICE CHECK Lead Channel Setting Pacing Amplitude 1.250 CV DEVICE CHECK Lead Channel Setting Pacing Pulse Width 0.4 CV DEVICE CHECK Lyndon Setting Mode (NBG Code) VVIR CV DEVICE CHECK Ventricular chambers paced during OILER HELPER pacing. BiV CV DEVICE CHECK Lyndon Setting Lower Rate Limit 70 CV DEVICE CHECK Lyndon Setting Maximum Sensor Rate 120 CV DEVICE CHECK OILER HELPER LV-RV Delay 0 CV D EVICE CHECK Therapy Statistic Recent Shocks Delivered 0 CV DEVICE CHECK Therapy Statistic Recent Shocks Aborted 0 CV DEVICE CHECK Therapy Statistic Recent ATP Delivered 0 CV DEVICE CHECK RV HV Impedance 48 CV D EVICE CHECK Zone Setting Type [...] Anatomical Region Laterality Modality Device Interroga tion 04/17/2025 2:28 AM EDT Impressions 04/20/2025 8:59 AM EDT Heart Failure Diagnostic: Stable * Heart failure diagnostics assessed through the device * Status: Stable * No overt HF present Narrative Procedure Note Seth Bob MD - 04/20/2025 IMPRESSION: Heart Failure Diagnostic: Stable * Heart failure diagnostics assessed through the device * Status: Stable * No overt HF present us Seth Bob MD CV IMPLANTABLE CARDIAC DEVICE PROCEDURES Final Result documented in this encounter Visit Diagnoses Not on filedocumented in this encounter Care Teams Station Examiner Relationship Specialty Start Date End Date Junie Hand NP [address] [facility] [address] [place] [place] [address] PCP - General 09/29/22 documented as of this encounter
[2025-04-25 15:01] VITALS: BP 89/42; PULSE 80; O2SAT 98; BMI 19.1
--- NOTE | 2025-04-25 15:01 | A.OFFVIS_ITS ---
Vital Signs 04/25/25 15:01 Height 5 ft 8 in Weight 125 lb 8 oz BMI 19.1 BP 89/42 L Blood Pressure Location Rt brachial Position Sitting Pulse 80 Pulse Source Pulse Oximeter Pulse Oximetry (%) 98 Oxygen Delivery Method Room Air Intake Visit Reasons: COPD/ CT FU Allergies No Known Allergies Allergy (Verified 04/25/25 15:06) HPI HPI COPD/ CT FU: Details: Errol is a pleasant 70-year-old male, current 50+ year smoker with underlying COPD, coronary artery disease status post CABG x4, atrial fibrillation, hypertension, hyperlipidemia and heart failure with preserved EF. Today he is accompanied by his daughter. He reports moderate control with Trelegy however continues to report wheezing, and productive cough with yellow sputum. He has been reluctant to use his nebulizer due to discomfort with the device. He has a history of smoking, recently increasing to 25 cigarettes a day, but has since reduced to four cigarettes daily. Daughter reprots concerns with weight loss, with a significant drop to 119 pounds last week, prompting concern and a visit to the primary care physician. [facility] Medical History (Updated 05/09/25 @ 10:51 by Shannon Rosales NP) Diabetes mellitus Social History Patient Tobacco Use Status: Current everyday Tobacco user Cigarette Packs Per Day: 1 Cigarettes Per Day: 20 Review of Systems Const Denies chills, Denies excessive sweating, Denies fever(s), Denies headache(s) and Denies night sweats Eyes Denies dry eyes, Denies irritation and Denies itchy eyes ENT Reports Normal hearing present and Denies headache(s) Card Denies chest pain, Denies chest pain at rest, Denies chest pain with activity, Denies claudication, Denies leg edema, Denies orthopnea and Denies paroxysmal nocturnal dyspnea Resp Reports change in phlegm color, Reports chest congestion, Reports cough, Denies hemoptysis, Denies excessive phlegm production, Denies pain on inspiration, Denies pain with cough, Denies stridor and Reports wheezing Musc Denies myalgias Neuro Reports Normal hearing present and Denies headache(s) Endo Denies excessive sweating Ezekiel/Lymph Denies lymphadenopathy Aller/Immun Denies itchy eyes, Denies seasonal rhinorrhea and Reports wheezing Physical Exam Vital Signs: Last Vital Signs Pulse 80 04/25/25 15:01 BP 89/42 L 04/25/25 15:01 Pulse Ox 98 04/25/25 15:01 Oxygen Delivery Method Room Air 04/25/25 15:01 BMI result Body Mass Index 19.1 Const General: cooperative, comfortable, no acute distress and alert Orientation/consciousness: patient oriented x3 HEENT Head: Yes normal to inspection, Yes normocephalic and Yes atraumatic Ears: hearing grossly normal bilaterally and external ears normal Eyes General: appearance normal, both eyes and all related structures Eyelids: Yes eyelids normal Sclerae: sclerae normal EOM: EOMs intact bilaterally Neck Neck: Yes normal visual inspection and Yes no lymphadenopathy Lymphatic: no lymphadenopathy noted Chest Chest palpation & inspection: normal inspection of the chest Resp Effort & Inspection: normal respiratory effort, able to speak in complete sentences, no audible wheezes, no stridor, not tachypneic, no tripod positioning, no use of accessory muscles and prolonged expiratory phase Auscultation: no crackles, rhonchi, wheezes and diminished lung sounds Cardio Jugular venous distension: no JVD Rate: regular rate Rhythm: regular rhythm Skin Other: warm, dry General skin exam: no rashes or lesions noted Neuro General: patient oriented x3 Cranial nerves: Yes Normal hearing present Cognition (Neuro): normal cognition Gait exam (Neuro): Normal gait present Extrem General: Yes normal to inspection, Yes capillary refill normal, Yes no clubbing, cyanosis or edema and Yes no pedal edema Psych Appearance: grossly normal and well kempt Speech and movement: Normal speech and movement present and Clear speech present Affect: normal affect Attitude: cooperative Thought process: Normal thought process present Thought content: Normal thought content present Insight: Good insight present (Psych) Judgement: Good judgement present (Psych) Assessment & Plan Assessment & Plan (1) COPD (chronic obstructive pulmonary disease): Code(s): J44.9 - Chronic obstructive pulmonary disease, unspecified Category: Medical (2) Nicotine dependence, cigarettes, uncomplicated: Code(s): F17.210 - Nicotine dependence, cigarettes, uncomplicated Category: Medical (3) Pulmonary nodule: Code(s): R91.1 - Solitary pulmonary nodule Category: Medical Plan Will treat bronchitic symptoms with doxycycline and prednisone. Patient aware to call if symptoms do not improve or seek emergent care if worsens. The patient reports wheezing and has been advised to use a nebulizer more frequently, at least twice a day, to manage symptoms. A mask for the nebulizer may be provided to improve compliance, however patient would like to hold off at this time. The patient has experienced significant weight loss, dropping to 119 pounds, which is concerning for potential underlying conditions. Further evaluation is needed to determine the cause, considering a referral to a quahogger if gastrointestinal issues persist, which they will further discuss with PCP. Chest CT 01/2025 revealed small pleural effusion, pleural thickening and pulmonary nodule largest 6mm. Will repeat in 3 months to assess stability. Will also obtain prior imaging from [facility] to thoroughly compare findings. Smoking cessation reviewed and patient working towards quitting. All questions were answered and patient is in agreement of plan. Will follow up in 4-6 weeks or sooner if needed. Medications: New prednisone see taper instructions; 40 mg Daily x3 days, 30 mg daily x3 days, 20 mg daily x3 days, 10 mg daily x3 days 10 mg PO DIRECTED 30 tabs 0RF doxycycline hyclate 100 mg PO BID 14 caps 0RF Coding Level of Care Code Est Pt Level 4 (85771) Diagnoses COPD (chronic obstructive pulmonary disease) J44.9 Nicotine dependence, cigarettes, uncomplicated F17.210 Pulmonary nodule R91.1
--- OUTSIDE RECORDS SUMMARY | 2025-04-25 16:08 | XMS_ITS | Clinical Summary ---
Author Organization [facility] Address [address] [place] [address] Care Team Providers Care Substance Abuse Rn Name Role Phone Jenae Hahn MD Primary [...] MINI PEN NEEDLES 31G X 5 MM [facility] [place] USE 1 PEN NEEDLE TO INJECT INSULIN [...] age to complete this topic Care Teams Substance Abuse Rn Relationship Specialty Start Date End Date Jenae Hahn MD [address] [place], [place] PCP - General Pulmonary Disease 09/23/21
--- OUTSIDE RECORDS SUMMARY | 2025-04-25 16:08 | XMS_ITS | Clinical Summary ---
Author Organization [address] [place] [address] Address [address] [place] [address] Phone Care Team Providers Care Radiologist Diagnostic Name Role Phone Junie Hand NP Primary Care Provider [phone] Allergies No known active allergies Medications acetaminophen [...] type, unspecified whether angina present, unspecified whether [place] or transplanted heart,Ischemic cardiomyopathy Take 1 tablet (30 mg total) by mouth 1 (one) time each day. Do not crush or chew. 30 each 11 5 11/15/19 26 Active torsemide 40 mg tablet Take 40 mg by mouth 1 (one) time each day. 90 tablet 3 5 Active Hospital, Clinic, or Other Facility Administered Medication Ordered Dose Route Frequency Start Date End Date Status perflutren lipid microsphere (DEFINITY) 1.3 mL in sodium chloride 0.9% 8.7 mL injectionIndications:Co ronary artery disease, unspecified vessel or lesion type, unspecified whether angina present, unspecified whether [place] or transplanted heart,Ischemic cardiomyopathy 10 mL IV [...] Encounters Date Type Department Care Team Description 04/20/2025 9:20 AM EDT Ancillary Procedure [facility] [address] [facility] [address] [place] [address] 03/26/2025 1:55 PM EDT Ancillary Procedure [facility] [address] [facility] [address] [place] [address] 02/13/2025 5:50 PM EDT Ancillary Procedure [facility] - [facility] [address] [facility] [address] [place] [address] from Last 3 Months Family History Medical [...] Description 07/10/2025 11:00 AM EST Ancillary Procedure [facility] - [facility] [address] [facility] [address] [place] [address] Health Maintenance Due Date Last Done Comments Diabetes: Annual Foot Exam 1965 Diabetes: Annual Retina Eye Exam 1965 Hepatitis A Vaccines (1 of 2 - Risk 2-dose series) 02/09/1972 Abdominal Aortic Aneurysm (AAA) Screen 08/07/2022 Cholesterol Screening (Lipid Panel) 08/07/2022 Colorectal Cancer Screening: Colonoscopy 08/07/2022 Falls Risk Assessment 08/07/2022 Hepatitis C Screening 08/07/2022 Lung Cancer Screening (Low Dose CT) 08/07/2022 Medicare Annual Wellness Visit 08/07/2022 Social Influencers of Health Screening 08/07/2022 Diabetes: Annual Urine Albumin-Creatinine Ratio (uACR) 08/30/2022 Diabetes: Blood Sugar Control Test (HGBA1C) 08/30/2022 Depression Screening 08/30/2024 COVID-19 Vaccine ( season) 2024 05/05/2024, 06/04/2023, [...] this topic Medical Devices Implanted Type Area Permaculture Contractor Device Identifier Shelf Expiration Date Model / Serial / Lot Cardiac Product Architect-D Icd-10/10/202 2 Implanted:05/2022 by Seth Bob MD (Quantity not on file) Cardiac POWER REACTOR OPERATOR-D ICD Left: Chest [employer] - CARDIAC RHYTH-CRDM CLARIA QUAD [id number] / [id number] / Medt-Card Claria Mri Quad Crtd Oikm2rk [id number] Implanted:05/2022 (Quantity not on file) Cardiac POWER REACTOR OPERATOR-D ICD [employer] - CARDIAC RHYTH-CRDM CLARIA MRI QUAD CRTD [id number] / [id number] / Procedures Procedure Name Priority Date/Time Associated Diagnosis Comments CARDIAC DEVICE CHECK- REMOTE- MURJ Routine 04/20/2025 9:17 AM EDT CARDIAC DEVICE CHECK- REMOTE- MURJ Routine 03/26/2025 1:54 PM EDT B-TYPE NATRIURETIC PEPTIDE Routine 02/14/2025 8:05 AM [...] 01/24/2025 8:32 AM EDT Shortness of breath from Last 3 Months Results * Cardiac device check - Remote- MURJ (04/20/2025 9:17 AM EDT) Only the most recent of3 resultswithin the time period is included. Date Time Interrogation Session [id number] CV DEVICE CHECK Type Interrogation Session Remote CV DEVICE CHECK Implantable Pulse Generator Permaculture Contractor MDT CV DEVICE CHECK Implantable Pulse Generator Type POWER REACTOR OPERATOR-D CV DEVICE CHECK Implantable Pulse Generator Model Claria MRI Quad CRTD [id number] CV DEVICE CHECK Implantable Pulse Generator Serial Number [id number] CV DEVICE CHECK Implantable Pulse Generator Implant Date 20220608 CV DEVICE CHECK Battery Remaining Longevity 49.0 CV DEVICE CHECK Battery Voltage 2.940 CV D EVICE CHECK Battery DOMESTIC VIOLENCE COUNSELOR Trigger 2.727 CV DEVICE CHECK Battery Status [...] CV DEVICE CHECK Ventricular chambers paced during POWER REACTOR OPERATOR pacing. BiV CV DEVICE CHECK Lyndon Setting Lower Rate Limit 70 CV DEVICE CHECK Lyndon Setting Maximum Sensor Rate 120 CV DEVICE CHECK POWER REACTOR OPERATOR LV-RV Delay 0 CV D EVICE CHECK [...] IMPLANTABLE CARDIAC DEVICE PROCEDURES Final Result * (ABNORMAL) B-type natriuretic peptide (02/14/2025 8:05 AM EDT) Only the most recent of3 resultswithin the time period is included. B-Type Natriuretic Peptide 663.3(H) 0.0 - 100.0 pg/mL [facility] 1 Comment:[employer] ADVIA Cent[place] r XP methodology Blood Venous blood specimen / Unknown 02/14/2025 8:05 AM EDT 02/14/2025 Narrative [facility] 1 - 02/15/2025 7:06 AM EDT Performed at: - [facility] [id number] Narrow Fab[employer] Loom Fixer: Ilene Rodríguez MD, Phone: [phone] us Jeffrey Delarosa MD LAB BLOOD ORDERABLES Bette l Result [facility] 1 * Magnesium (02/14/2025 8:05 AM EDT) Magnesium 1.9 1.6 - 2.3 mg/dL [facility] 1 Blood Venous blood specimen / Unknown 02/14/2025 8:05 AM EDT 02/14/2025 Narrative [facility] 1 - 02/15/2025 8:08 AM EDT Performed at: 01 - [facility] [address] [id number] [employer] Loom Fixer: Ilene Rodríguez MD, Phone: [phone] Jeffrey Delarosa MD LAB BLOOD ORDERABLES Bette l Result Performing Organization Address City/[facility]/ZIP Co de Phone Number [facility] 1 * (ABNORMAL) Basic metabolic panel (02/14/2025 8:05 AM EDT) Only the most recent of3 resultswithin the time period is included. [facility] Glucose 111(H) 70 - 99 mg/dL [facility] [...] 4:06 AM EDT Performed at: 01 - [facility] [address] [id number] [employer] Loom Fixer: Ilene Rodríguez MD, Phone: [phone] Jeffrey Delarosa MD LAB BLOOD ORDERABLES Bette l Result [facility] 1 * External clinical lab (01/24/2025 9:29 AM EDT) Historical Provider LAB BLOOD ORDERABLES Bette l Result from Last 3 Months Insurance [employer] Care Teams Radiologist Diagnostic Relationship Specialty Start Date End Date Junie Hand NP [address] [facility] [place] [address] PCP - General 09/29/22
--- OUTSIDE RECORDS SUMMARY | 2025-04-25 16:08 | XMS_ITS | Patient Health Record ---
Author Organization [facility] Guido kelley Wolf Address [address] [facility] [place] [address] Care Team Providers Care Dry Molder Name Role Phone Yazan Junie Primary Care Provider Julissa Gaviria Unavailable [phone] Jorge Hernandez Unavailable [phone] Allergies No Known Allergies Reason For Referral No Information Medications Medication SIG (Take, Route, Frequency, Duration) Notes Start Date End Date Status Thiamine 250mg 1 capsules Not- Taking Torsemide Active Gabapentin 100 MG 1 capsule Orally Onc e a day hs 01/26/2020 Not-Taking Furosemide 20 MG as directed Orally Not-Taking Entresto 24-26 MG 1 tablet Orally Twic e a day Active Lisinopril 20 MG 1 tablet Orally Once a day; Duration: 30 day(s) Not-Taking eliquis 5 mg Not-Pritesh ing oxyCODONE HCl 5 MG Orally N ot-Taking Spiriva Respimat Not -Taking Digoxin 125 MCG as directed Orally Not-Taking Farxiga 5 MG 1 tablet Orally Once a day Not-Taking Isosorbide Dinitrate 30 MG 1 tablet Orally Twice a day; Duration: 30 day(s) Active Omeprazole Not-Takin g Insulin Glargine Not -Taking Clobetasol Propionate Not-Taking Tylenol 500mg Not-Ta keaton Sacubitril-Valsartan Not-Taking Warfarin Sodium 1 MG 1 tablet Orally Onc e a day; Duration: 30 day(s) Not-Taking Ferrous Sulfate Not- Taking Fluoxetine Active Budesonide Not-Takin g Januvia 25 MG as directed Orally Active metFORMIN HCl 500 MG 1 tablet with a marjorie l Orally Once a day; Duration: 30 day(s) Active Gabapentin Active Multivitamin Active Atorvastatin Calcium 80 MG 1 tablet Orally Once a day; Duration: 30 day(s) Active Trelegy Ellipta Acti ve Clopidogrel Bisulfate 75 MG 1 tablet Orally Once a day; Duration: 30 day(s) Not-Taking Aspir-81 Active Lantus 100 UNIT/ML as directed Subcutaneous Not-Taking Docusate Sodium Acti ve Acetaminophen Not-Ta keaton Vitamin C Active traZODone HCl 100 MG 1 tablet at bedtime Orally Once a day; Duration: 30 day(s) Active Vitamin B1 Active Carvedilol 6.25 MG 1 tablet with food Orally Twice a day Active Iron Active Ventolin HFA Active Immunizations Vaccine Route Administration Date Status Comme nts Influenza Unknown 04/30/2020 Administered COVID-19 Pfizer BioNTech Vaccine Unknown 11/20/2020 Adm inistered 1# 10/30/20 Social History Tobacco Use: Social History Observation Description Date Details (start date - stop date) Current Smoker 01/04/1980 - NA Alcohol Screen Question Answer Notes Did you have a drink containing alcohol in the p ast year? No Points 0 Interpretation Negative Tobacco use other than smoking: Question Answer Notes Are you an other tobacco user? No Tobacco Control (Standard) Question Answer Notes Tobacco use: Current smoker When did you start smoking? 01/04/1980 How often do you smoke cigarettes? Every day How many cigarettes a day do you smoke? 21-30 How soon after you wake up d o you smoke your first cigarette? 31-60 minutes Are you interested in quitting? Not ready to sammi t Additional Findings: Tobacco user Heavy cigarett e smoker (20-39 cigs/day) Problems Problem Type SNOMED Code ICD Code Onset Dates Problem Status W/U Status Risk Notes Problem Type 2 diabetes mellitus with diabetic polyneuropathy (E11.42) Active confirmed Vital Signs Height 5ft 8in in 01/16/2025 Weight 128 lbs 01/16/2025 BMI 19.46 kg/m2 01/16/2025 Procedures Procedure Date Ordered Date Performed Result Body Sit e 37272-KRIBXTJ NAIL, 6 OR MORE 01/16/2025 N/A Encounters Encounter Location Date Provider Diagnosis [facility] [address] [address] 01/16/2025 Julissa Ellison Tinea unguium B35.1 ; Pain in right toe(s) M79.674 ; Pain in left toe(s) M79.675 ; Tinea unguium B35.1 ; Other hammer toe(s) (acquired), right foot M20.41 ; Other hammer toe(s) (acquired), left foot M20.42 and Type 2 diabetes mellitus with diabetic polyneuropathy E11.42 Assessments Encounter Date Diagnosis (ICD Code) Assessment Notes Treatment Notes Treatment Clinical Notes Section Notes 01/16/2025 Tinea unguium (ICD-10 - B35.1) 01/16/2025 Pain in right toe(s) (ICD-10 - M79.674) 01/16/2025 Pain in left toe(s) (ICD-10 - M79.675) 01/16/2025 Other hammer toe(s) (acquired), right foot (ICD-10 - M20.41) Patient Educated with: DIABETIC FOOT CARE INSTRUCTIONS. pdf (DIABETIC FOOT CARE INSTRUCTIONS. pdf) 01/16/2025 Tinea unguium (ICD-10 - B35.1) 01/16/2025 Other hammer toe(s) (acquired), left foot (ICD-10 - M20.42) 01/16/2025 Type 2 diabetes mellitus with diabetic polyneuropathy (ICD-10 - E11.42) Plan Of Treatment Pending Test Test Name Order Date [id number] NAIL, 6 OR MORE 01/16/2025 [id number] SKIN LESIONS, OVER 4 01/02/20 23 [id number] SKIN LESIONS, 2 TO 4 01/03/20 22 [id number] DYSTROPHIC NAILS ANY # Next Appt Details Provider Name:Julissa Hallgeorge schmitt, 01/15/2026 11:00:00 AM, [address], [place], [address], Insurance Providers Payer Name Payer Address Payer Phone Subscriber Number Group Number Insured Name Patient Relationship to Insured Coverage Start Date Coverage End Date [employer] [address] [place] [address] [phone] [id number] Errol Rodrigues Self - patient is the [...]
== END 2025-04-25 15:42 | disposition home or self-care (01) ==
LOC: HO.HPSW 14:46
PROVIDERS: PCP Nurse Practitioner Family; Visit Provider Nurse Practitioner Family
DX: J44.9 Chronic obstructive pulmonary disease, unspecified (principal); F17.210 Nicotine dependence, cigarettes, uncomplicated; R91.1 Solitary pulmonary nodule
CPT/HCPCS: 99214

== ENCOUNTER → 2025-04-25 14:45 | Outpatient (BNVA) | payer MEDICARE, SELFPAY | PROVIDERS: PCP Nurse Practitioner Family; Visit Provider Nurse Practitioner Family | DX: J44.9 Chronic obstructive pulmonary disease, unspecified (principal); F17.210 Nicotine dependence, cigarettes, uncomplicated | CPT/HCPCS: 99212 ==

== ENCOUNTER 2025-06-02 08:23 | Outpatient (REF) | payer MEDICARE, SELFPAY ==
--- OUTSIDE RECORDS SUMMARY | 2023-12-31 07:00 | XMS_ITS ---
Author Organization [facility] allie [place] Address [address] [place] [address] Care Team Providers Care Technical Laboratory Asst Name Role Phone Junie Hand Primary Care Provider Julissa Gaviria Unavailable [phone] Jorge Huddleston Unavailable [phone] Hogue Encounters Encounter [facility] Date [facility] [address] [facility]/31/[facility] Jorge Huddleston Plan Of Treatment Next Appt Details Provider Name:Julissa schmitt, 01/15/2026 11:00:00 AM, [address] [place] [address], [phone], Progress Notes * Errol RODRIGUES JrDOB:[birth year] (70 yo M)Acc No.[id number]:12/31/2023 Progress Note Patient: Pili SOSA Errol Harrison Jr Provider: Yesica Hernandez DPM :1955 A ge:68 Y S ex:Male Date:12/31/2023 Address:[address] [place] [id number] Pcp:Junie Hand Subjective: * Chief Complaints: * [address] Hogue. * Medical History: Objective: * Vitals: Assessment: Plan: * Treatment: * Images: * The named appointment provid er may or may not be the originator of this progress note, and it is not deemed complete until electronically signed by the appointment provider. Sign off status: Pending * Provider: Yesica Hernandez DPM Date: 0 12/31/2023 Generated for Grecia alexis/Jayna/Neal on: 08:27 AM EDT
--- OUTSIDE RECORDS SUMMARY | 2024-01-04 08:30 | XMS_ITS ---
Author Organization [facility] allie [place] Address [address] [place] [address] Care Team Providers Care Bullion Weigher Name Role Phone Junie Hand Primary Care Provider Julissa Gaviria Unavailable [phone] Jorge Huddleston Unavailable [phone] Ruth Encounters Encounter Location Date Provider Diagnosis [address] [address] 01/04/2024 Jorge Huddleston Plan Of Treatment Next Appt Details Provider Name:Julissa schmitt, 01/15/2026 11:00:00 AM, [facility] [address], [address], Progress Notes * Errol RODRIGUES JrDOB:[birth year] (70 yo M)Acc No.[id number]:01/04/2024 Progress Note Patient: Pili SOSA Errol Harrison Jr Provider: Yesica Hernandez DPM :1955 A ge:68 Y S ex:Male Date:01/04/2024 Address:[address] [place] [phone] Pcp:Junie Hand Subjective: * Chief Complaints: * [...] 0 01/04/2024 Generated for Grecia alexis/Siddharth on: 08:28 AM EDT
--- OUTSIDE RECORDS SUMMARY | 2025-01-16 07:00 | XMS_ITS ---
Author Organization [facility] [place] Address [address] [place] [address] Care Team Providers Care Waiter/Waitress Bar Name Role Phone Junie Hand Primary Care Provider Julissa Gaviria Unavailable [phone] Jorge Huddleston [phone] Encounters Encounter Location Date Provider Diagnosis [facility] [address] [address] 01/16/2025 Jorge Huddleston Plan Of Treatment Next Appt Details Provider Name:Julissa schmitt, 01/15/2026 11:00:00 AM, [address] [place] [address], [phone], Progress Notes * Errol RODRIGUES JrDOB:[birth year] (70 yo M)Acc No.[id number]:01/16/2025 Progress Note Patient: Errol MAYO [place] Provider: Yesica Hernandez DPM :1955 A ge:69 Y S ex:Male Date:01/16/2025 Address:[address] [place] [phone] Pcp:Junie Hand Subjective: * Chief Complaints: * [...] 0 01/16/2025 Generated for Grecia Odonnell on: 08:28 AM EDT
--- OUTSIDE RECORDS SUMMARY | 2025-05-29 07:40 | XMS_ITS | Encounter Summary ---
Author Organization [facility] Address [address] [place] [address] Care Team Providers Care Video Game Repair Technician Name Role Phone Junie Hand NP Primary Care Provider [phone] Reason for Visit * Reason Comments Follow-up Triage visit ongoing SOB Encounter Details Date Type Department Care Team (Late st Contact Info) Description 05/29/2025 7:40 AM EDT Office Visit [facility] - [address] [place] [id number] Marina Sandoval NP [address] [place] [address] Shortness of breath (Primary Dx); Chronic obstructive pulmonary disease, unspecified COPD type (CMS/HCC V24, CMS/HCC V28); Coronary artery disease involving autologous artery coronary bypass graft without angina pectoris; Ischemic cardiomyopathy Social History Tobacco Use Types Packs/Day Years [...] on file documented as of this encounter Last Filed Vital Signs Vital Sign Reading Time Taken Comments Blood Pressure 100/48 05/29/2025 7:43 AM EDT Pulse 72 05/29/2025 7:43 AM EDT Temperature - - Respiratory Rate - - Oxygen Saturation 98% 05/29/2025 7:43 AM EDT Inhaled Oxygen Concentration - - Weight 58.1 kg (128 lb) 05/29/2025 7:43 AM EDT Height 172.7 cm (5' 8 ) 05/29/2025 7:43 AM EDT Body Mass Index 19.46 05/29/2025 7:43 AM EDT documented in this encounter Progress Notes * Marina Sandoval NP - 05/29/2025 7:40 AM EDTAssociated Problem(s): COPD (chronic obstructive pulmonary disease) (CMS/[facility] V24, [facility] V28) Wheezing throughout all lung peterson appreciated upon exam today. The patient has not taken his inhaler this morning. As outlined above he has noticed a significant decline in his breathing since his inhaler was changed from Spiriva to Trelegy. I have encouraged the patient and his daughter to reachout to the pulmonology team for further evaluation and potential medication changes. His shortness of breath does not appear to be cardiac in nature as the patient is not volume overloaded. I do not hear crackles. His weight has been stable. Echocardiogram recently updated which revealed an improvement in his LVEF. Ischemic evaluation was negative. * Marina Sandoval NP - 05/29/2025 7:40 AM EDTAssociated Problem(s): CAD (coronary artery disease) Recent ischemic evaluation negative as outlined above. He is going to continue on his current dose of aspirin, statin and carvedilol. Patient is also on isosorbide. Instructed to call 911 or go to the emergency room should the patient begin to experience chest pain or pressure lasting greater than 10 minutes does not resolve with rest. * Marina Sandoval NP - 05/29/2025 7:40 AM EDTAssociated Problem(s): Ischemic cardiomyopathy Patient appears euvolemic upon exam today. Continue Entresto, carvedilol and torsemide. We again discussed the importance of sodium restriction as the patient does endorse eating spam and sausage forbreakfast as well as frozen meals. Patient's weight has been stable. Recent echo as outlined above. Encouraged to continue to follow a low-sodium diet and perform daily weights. Patient will reach out to our office with a weight gain of 2 pounds in 1 day or 5 pounds in 5 days accompanied by worsening peripheral edema, shortness of breath or abdominal distention. documented in this encounter Plan of Treatment Upcoming Encounters Date Type Department Care Team (Late st Contact Info) Description 07/10/2025 11:00 AM EST Ancillary Procedure [facility] - [address] [place] [address] documented as of this encounter Procedures Procedure Name Priority Date/Time Associated Diagnosis Comments ECG 12-LEAD Routine 05/29/2025 10:37 AM EDT Shortness of breath documented in this encounter Results * ECG 12 lead (05/29/2025 10:37 AM EDT) Ventricular Rate ECG 72 BPM GEMUSE Atrial Rate 81 BPM GEMUSE QRS Duration 154 ms GEMUSE Q-T Interval 456 ms GEMUSE QTc 499 ms GEMUSE R [place] -102 degrees GEMUSE T [place] 95 degrees GEMUSE ECG Interpretation Ventricular-pa daniel rhythm Abnormal ECG When compared with ECG of 26-OCT-2024 10:00, Vent. rate has decreased BY 4 BPM Confirmed by MD Washington, Jeffrey ([id number]) on 05/30/2025 4:04:15 PM GEMUSE 05/29/2025 7:51 AM EDT 05/30/2025 4:04 PM EDT Marina Sandoval NP ECG ORDERABLES Edited Result - Final TANYA documented in this encounter Visit Diagnoses Diagnosis Shortness of breath- Primary Chronic obstructive pulmonary disease, unspecified COPD type (CMS/HCC V24, CMS/HCC V28) Coronary artery disease involving autologous artery coronary bypass graft without angina pectoris Ischemic cardiomyopathy Other specified forms of chronic ischemic heart disease Encounter for adjustment or management of cardiac device documented in this encounter Historical Medications * This list may reflect changes made after this encounter. fluticasone-umec lidinium-vilante rol (Trelegy Ellipta) 200-62.5-25 mcg inhaler Inhale 1 puff (200 mcg total) by mouth 1 (one) time each day. Rinse mouth with water after use to reduce aftertaste and incidence of candidiasis. Do not swallow. added in this encounter Care Teams Video Game Repair Technician Relationship Specialty Start Date End Date Junie Hand NP [address] [place] [facility] [place] [id number] PCP - General 09/29/22 documented as of this encounter
--- NOTE | ~2025-06-02 | CT_ITS ---
EXAMINATION: CT CHEST WITHOUT IV CONTRAST INDICATION: R91.1 - Solitary pulmonary nodule COMPARISON: There are no prior studies available for comparison. TECHNIQUE: Helical CT scan of the chest was performed without intravenous contrast. Coronal and sagittal reformatted images were generated and reviewed. This CT exam was performed with one or more of the following dose reduction techniques: automated exposure control, adjustment of the mA and/or kV according to patient size, use of iterative reconstruction technique. DLP: 154 mGy-cm CHEST: THYROID: The thyroid is unremarkable. LUNGS: There is mild to moderate emphysema. Again seen is a 5 mm nodule in the right lower lobe (series 5, image 95), and a 4 mm nodule more inferiorly in the right lower lobe (series 5, image 131). No new pulmonary nodules are identified. There is scarring in the anterior aspects of the right middle lobe and lingula. There is also scarring at the left lung base. MEDIASTINUM: There is no mediastinal lymphadenopathy. GRETCHEN: Evaluation of the hilar regions is limited by lack of intravenous contrast material. CARDIOVASCULATURE: The heart is enlarged. There is no pericardial effusion. There is severe atherosclerotic calcification of the thoracic aorta, which is normal in caliber. DEGREE OF CORONARY CALCIFICATION: severe, status post CABG procedure. PLEURA: There is a small right pleural effusion and a trace left pleural effusion. No pneumothorax. MAIN AIRWAYS: The mainstem bronchi and proximal branches are patent. AXILLA: There is no axillary lymphadenopathy. BONES AND SOFT TISSUES: Unremarkable UPPER ABDOMEN: The visualized portions of the liver, spleen, and adrenals have an unremarkable unenhanced appearance. CT/CT chest wo IV con IMPRESSION: 1. Mild to moderate emphysema. 2. Stable right lower lobe pulmonary nodules as described. A follow-up chest CT is recommended in 12 months. 3. Small right pleural effusion and trace left pleural effusion. 4. Because mild to moderate emphysema is an independent risk factor for lung cancer, consider entering the patient into a program of yearly lung cancer screening with low dose chest CT. Electronically signed by: Bart Manjarrez MD 06/04/2025 07:24 AM EDT
--- OUTSIDE RECORDS SUMMARY | 2025-06-02 08:26 | XMS_ITS | Clinical Summary ---
Author Organization [address] [facility] Address [address] [place] [address] Phone Care Team Providers Care Horticultural Farmer Name Role Phone Junie Hand NP Primary Care Provider [phone] Allergies No known active allergies Medications acetaminophen (TYLENOL) 500 mg tablet Take 1 Tab by mouth every 4 hours as needed. Active albuterol HFA (PROAIR HFA ; PROVENTIL HFA ; VENTOLIN HFA) 90 mcg/actuation inhaler Inhale 2 Puffs into the lungs every 4 hours as needed. Active aspirin 81 mg chewable tablet Take 1 Tablet by mouth daily. 06/17/20 22 Active atorvastatin (LIPITOR) 80 mg tablet Take 80 mg by mouth every other day. Active budesonide-glycop yr-formoterol (Breztri Aerosphere) 160-9-4.8 mcg/actuation HFA aerosol inhaler [...] a day with meals. 180 each 3 08/18/20 24 2024 Active SITagliptin phosphate (JANUVIA) 25 mg tablet [...] isosorbide mononitrate (IMDUR) 30 mg 24 hr tabletIndications :Coronary artery disease, unspecified vessel or lesion type, unspecified whether angina present, unspecified whether [place] or transplanted heart,Ischemic cardiomyopathy Take 1 tablet (30 mg total) by mouth 1 (one) time each day. Do not crush or chew. 30 each 11 11/15/19 25 2025 Active torsemide 40 mg tablet Take 40 mg by mouth 1 (one) time each day. 90 tablet 3 02/07/20 25 Active sacubitriL-valsar nuñez (ENTRESTO) 24-26 mg per tablet Take 1 tablet by mouth twice daily 60 tablet 6 05/08/20 25 Active fluticasone-umecl idinium-vilantero l (Trelegy Ellipta) 200-62.5-25 mcg inhaler Inhale 1 puff (200 mcg total) by mouth 1 (one) time each day. Rinse mouth with water after use to reduce aftertaste and incidence of candidiasis. Do not swallow. Active sacubitriL-valsar nuñez (Entresto) 24-26 mg per tablet Take 1 tablet by mouth 2 (two) times a day. 180 tablet 05/02/20 25 2024 Discontinued Hospital, Clinic, or Other Facility Administered Medication Ordered Dose Route Frequency Start Date End Date Status perflutren lipid microsphere (DEFINITY) 1.3 mL in sodium chloride 0.9% 8.7 mL injectionIndications:Co ronary artery disease, unspecified vessel or lesion type, unspecified whether angina present, unspecified whether [place] or transplanted heart,Ischemic cardiomyopathy 10 mL IV Once in imaging 10/26/2024 Activ e Active Problems Problem Noted Date Diagnosed Date HLD (hyperlipidemia) 06/21/2024 Anemia 08/26/2021 CAD (coronary artery disease) 04/23/2021 Assessment & Plan (05/29/2025 10:37 AM EDT): Recent ischemic evaluation negative as outlined above. He is going to continue on his current dose of aspirin, statin and carvedilol. Patient is also on isosorbide. Instructed to call 911 or go to the emergency room should the patient begin to experience chest pain or pressure lasting greater than 10 minutes does not resolve with rest. Assessment & Plan (11/30/2024 10:58 AM EDT): [...] Future COPD (chronic obstructive pu lmonary disease) ([facility] V24, [facility] V28) 04/23/2021 Assessment & Plan (05/29/2025 10:37 AM EDT): Wheezing throughout all lung peterson appreciated upon exam today. The patient has not taken his inhaler this morning. As outlined above he has noticed a significant decline in his breathing since his inhaler was changed from Spiriva to Trelegy. I have encouraged the patient and his daughter to reach out to the pulmonology team for further evaluation and potential medication changes. His shortness of breath does not appear to be cardiac in nature as the patient is not volume overloaded. I do not hear crackles. His weight has been stable. Echocardiogram recently updated which revealed an improvement in his LVEF. Ischemic evaluation was negative. Dizziness 04/23/2021 Hiatal hernia 04/23/2021 Ischemic cardiomyopathy 04/23/2021 Assessment & Plan (05/29/2025 10:37 AM EDT): Patient appears euvolemic upon exam today. Continue Entresto, carvedilol and torsemide. We again discussed the importance of sodium restriction as the patient does endorse eating spam and sausage for breakfast as well as frozen meals. Patient's weight [...] breath or abdominal distention. Assessment & Plan (11/30/2024 10:58 AM EDT): [...] Encounters Date Type Department Care Team Description 05/29/2025 7:40 AM EDT Office Visit [facility] - [address] [place] [address] Marina Sandoval NP Shortness of breath (Primary Dx); Chronic obstructive pulmonary disease, unspecified COPD type (CMS/HCC V24, CMS/HCC V28); Coronary artery disease involving autologous artery coronary bypass graft without angina pectoris; Ischemic cardiomyopathy 05/28/2025 Telephone [facility] - [address] [place] [address] Jeffrey Delarosa MD 05/21/2025 Telephone [facility] - [address] [place] [address] Rex Mckeon MA 05/18/2025 4:40 PM EDT Ancillary Procedure [facility] - [address] [place] [address] 05/11/2025 Telephone [facility] - [address] [place] [address] Marina Sandoval NP 05/02/2025 Telephone [facility] - [address] [place] [address] Jeffrey Delarosa MD 04/20/2025 9:20 AM EDT Ancillary Procedure [facility] [address] [place] [address] 03/26/2025 1:55 PM EDT Ancillary Procedure [facility] [address] [place] [address] from Last 3 Months Family History Medical [...] Mass Index 19.46 05/29/2025 7:43 AM EDT Plan of Treatment Upcoming Encounters Date Type Department Care Team (Late st Contact Info) Description 07/10/2025 11:00 AM EST Ancillary Procedure [facility] - [address] [facility] [address] [place] [address] Health Maintenance Due Date Last Done Comments Colorectal Cancer Screening: Colonoscopy 1953 Diabetes: Annual Foot Exam 1963 Diabetes: Annual Retina Eye Exam 1965 Hepatitis A Vaccines (1 of 2 - Risk 2-dose series) 02/09/1972 Abdominal Aortic Aneurysm (AAA) Screen 08/07/2022 Cholesterol Screening (Lipid Panel) 08/07/2022 Falls Risk Assessment 08/07/2022 Hepatitis C Screening 08/07/2022 Lung Cancer Screening (Low Dose CT) 08/07/2022 Medicare Annual Wellness Visit 08/07/2022 Social Influencers of Health Screening 08/07/2022 Diabetes: Annual Urine Albumin-Creatinine Ratio (uACR) 08/30/2022 Diabetes: Blood Sugar Control Test (HGBA1C) 08/30/2022 Depression Screening 08/30/2024 COVID-19 Vaccine ( season) 2025 05/05/2024, 06/04/2023, 09/02/2022, Additional history exists Diabetes: Annual GFR (Glomerular Filtration Rate) 05/21/2026 05/21/2025, 05/15/2025, 02/14/2025, Additional history exists Hypertension/CHF/CAD Annual BMP Blood Test 05/21/2026 05/21/2025, 05/15/2025, 02/14/2025, Additional history exists DTaP,Tdap,and Td Vaccines (2 - Td or Tdap) 05/05/2033 05/05/2023 RSV Immunization Adult Patients Completed 07/14/2023 Zoster Vaccines Completed 07/14/2023, 05/10/2023 Pneumococcal Vaccine: 50+ Years Completed 05/05/2024, 06/11/2022, 01/06/2019 Influenza Vaccine Completed 05/13/2025, , 05/10/2023, Additional history exists HIB Vaccines Aged Out No longer eligi [...] this topic Medical Devices Implanted Type Area Supervisor Cloth Winding Device Identifier Shelf Expiration Date Model / Serial / Lot Cardiac Restaurant Crew Member-D Icd- 2 Implanted:05/2022 by Seth Bob MD (Quantity not on file) Cardiac DRESSER TENDER-D ICD Left: Chest [employer] - CARDIAC RHYTH-CRDM CLARIA QUAD [id number] / [id number] / Medt-Card Claria Mri Quad Crtd [id number] Implanted:05/2022 (Quantity not on file) Cardiac DRESSER TENDER-D ICD [employer] - CARDIAC RHYTH-CRDM CLARIA MRI QUAD CRTD [id number] / [id number] / Procedures Procedure Name Priority Date/Time Associated Diagnosis Comments ECG 12-LEAD Routine 05/29/2025 10:37 AM EDT Shortness of breath BASIC METABOLIC PANEL Routine 05/21/2025 8:22 AM EDT Shortness of breath Paroxysmal A-fib (CMS/HCC V24, CMS/HCC V28) B-TYPE NATRIURETIC PEPTIDE Routine 05/21/2025 8:22 AM EDT Shortness of breath Paroxysmal A-fib (CMS/HCC V24, CMS/HCC V28) CARDIAC DEVICE CHECK- REMOTE- MURJ Routine 05/18/2025 4:39 PM EDT B-TYPE NATRIURETIC PEPTIDE Routine 05/15/2025 9:35 AM EDT Shortness of breath BASIC METABOLIC PANEL Routine 05/15/2025 9:35 AM EDT Shortness of breath EXTERNAL CLINICAL LAB Routine 04/25/2025 8:33 AM EDT CARDIAC DEVICE CHECK- REMOTE- MURJ Routine 04/20/2025 9:17 AM EDT CARDIAC DEVICE CHECK- REMOTE- MURJ Routine 03/26/2025 1:54 PM EDT from Last 3 Months Results * ECG 12 lead (05/29/2025 10:37 AM EDT) Ventricular Rate ECG 72 BPM GEMUSE Atrial Rate 81 BPM GEMUSE QRS Duration 154 ms GEMUSE Q-T Interval 456 ms GEMUSE QTc 499 ms GEMUSE R [place] -102 degrees GEMUSE T [place] 95 degrees GEMUSE ECG Interpretation Ventricular-pa daniel rhythm Abnormal ECG When compared with ECG of 26-OCT-2024 10:00, Vent. rate has decreased BY 4 BPM Confirmed by MD [place], Jeffrey ([id number]) on 05/30/2025 4:04:15 PM GEMUSE 05/29/2025 7:51 AM EDT 05/30/2025 4:04 PM EDT us Marina Sandoval NP ECG ORDERABLES Edited Result - Final GEMUSE * (ABNORMAL) B-type natriuretic peptide (05/21/2025 8:22 AM EDT) Only the most recent of2 resultswithin the time period is included. Pathologist [facility] BNP 815(H) <=100 pcg/mL LAB CHEMISTRY METHOD 05/21/2025 10:28 AM [facility] Blood Venous blood specimen / Unknown Venipuncture / Unknown 05/21/2025 8:22 AM EDT 05/21/2025 9:45 AM EDT us Marina Sandoval SENIOR CONTRACT SPECIALIST LAB BLOOD ORDERABLES F inal Result [facility] [address] [place] [address], [place] [phone] * (ABNORMAL) Basic metabolic panel (05/21/2025 8:22 AM EDT) Only the most recent of2 resultswithin the time period is included. [facility] Sodium 137 133 - 145 mmol/L LAB CHEMISTRY METHOD 05/21/2025 10:25 AM [facility] Potassium 4.7 3.5 - 5.5 mmol/L LAB CHEMISTRY METHOD 05/21/2025 10:25 AM [facility] Chloride 106 96 - 110 mmol/L LAB CHEMISTRY METHOD 05/21/2025 10:25 AM [facility] CO2 28 21 - 32 mmol/L LAB CHEMISTRY METHOD 05/21/2025 10:25 AM [facility] Anion Gap 3 3 - 11 LAB CHEMISTRY METHOD 05/21/2025 10:25 AM [facility] Glucose 157(H) 70 - 100 mg/dL LAB CHEMISTRY METHOD 05/21/2025 10:25 AM [facility] BUN 30(H) 5 - 25 mg/dL LAB CHEMISTRY METHOD 05/21/2025 10:25 AM [facility] Creatinine 1.29 0.70 - 1.30 mg/dL LAB CHEMISTRY METHOD 05/21/2025 10:25 AM EDT [facility] eGFR 59(L) >=60 mL/min/1. 73m2 LAB CHEMISTRY METHOD 05/21/2025 10:25 AM EDT [facility] Comment:Calculation based on the Chronic Kidney Disease Epidemiology Collaboration (CKD-EPI) equation refit without adjustment for race. BUN/Creatinine Ratio 23.3 LAB CHEMISTRY METHOD 05/21/2025 10:25 AM EDT [facility] Calcium 9.1 8.5 - 10.5 mg/dL LAB CHEMISTRY METHOD 05/21/2025 10:25 AM EDT [facility] Blood Venous blood specimen / Unknown Venipuncture / Unknown 05/21/2025 8:22 AM EDT 05/21/2025 9:40 AM EDT us Marina Sandoval SENIOR CONTRACT SPECIALIST LAB BLOOD ORDERABLES F inal Result [facility] [address] [place] [address], * Cardiac device check - Remote- MURJ (05/18/2025 4:39 PM EDT) Only the most recent of3 resultswithin the time period is included. Date Time Interrogation Session [id number] CV DEVICE CHECK Type Interrogation Session Remote CV DEVICE CHECK Implantable Pulse Generator Supervisor Cloth Winding MDT CV DEVICE CHECK Implantable Pulse Generator Type DRESSER TENDER-D CV DEVICE CHECK Implantable Pulse Generator Model Claria MRI Quad CRTD [id number] CV DEVICE CHECK Implantable Pulse Generator Serial Number [id number] CV DEVICE CHECK Implantable Pulse Generator Implant Date [id number] CV DEVICE CHECK Battery Remaining Longevity 47.0 CV DEVICE CHECK Battery Voltage 2.970 CV D EVICE CHECK Battery SECTION LEADER SCREEN PRINTING Trigger 2.727 CV DEVICE CHECK Battery Status Middle of Service CV DEVICE CHECK Capacitor Charge Time 3.873 CV DEVICE CHECK Lyndon Statistic RA Percent Paced 0.00 CV DEVICE CHECK Lead Channel Impedance Value 4,047 CV DEVICE CHECK Lead Channel Sensing Intrinsic Amplitude 11.625 CV DEVICE CHECK Lead Channel Setting Sensing Sensitivity 0.30 CV DEVICE CHECK Lead Channel Impedance Value 304 CV DEVICE CHECK Lead Channel Pacing Threshold Amplitude 0.750 CV DEVICE CHECK Lead Channel Pacing Threshold Pulse Width 0.4 CV DEVICE CHECK Lead Channel RV Pacing Threshold Date 2025-05-18 CV DEVICE CHECK Lead Channel Setting Pacing Amplitude 2.000 CV DEVICE CHECK Lead Channel Setting Pacing Pulse Width 0.4 CV DEVICE CHECK Lead Channel Impedance Value 304 CV DEVICE CHECK Lead Channel Pacing Threshold Amplitude 0.500 CV DEVICE CHECK Lead Channel Pacing Threshold Pulse Width 0.4 CV DEVICE CHECK Lead Channel Pacing Threshold Date 2025-05-18 CV DEVICE CHECK Lead Channel Setting Pacing Amplitude 1.000 CV DEVICE CHECK Lead Channel Setting Pacing Pulse Width 0.4 CV DEVICE CHECK Lyndon Setting Mode (NBG Code) VVIR CV DEVICE CHECK Ventricular chambers paced during DRESSER TENDER pacing. BiV CV DEVICE CHECK Lyndon Setting Lower Rate Limit 70 CV DEVICE CHECK Lyndon Setting Maximum Sensor Rate 120 CV DEVICE CHECK DRESSER TENDER LV-RV Delay 0 CV D EVICE CHECK Therapy Statistic Recent Shocks Delivered 0 CV DEVICE CHECK Therapy Statistic Recent Shocks Aborted 0 CV DEVICE CHECK Therapy Statistic Recent ATP Delivered 0 CV DEVICE CHECK RV HV Impedance 42 CV D EVICE CHECK Zone Setting Type [...] 6 CV DEVICE CHECK Date of Service 2025-07-18 CV DEVICE CHECK Anatomical Region Laterality Modality Device Interroga tion 05/18/2025 1:23 AM EDT Impressions 05/18/2025 4:25 PM EDT Heart Failure Diagnostic: Elevated Sent to Triage * Heart failure diagnostics assessed through the device * Status: Elevated Narrative Procedure Note Sanam Tinoco NP - 05/18/2025 IMPRESSION: Heart Failure Diagnostic: Elevated Sent to Triage * Heart failure diagnostics assessed through the device * Status: Elevated Sanam Tinoco NP CV IMPLANTABLE CARDIAC DEVIC E PROCEDURES Final Result * External clinical lab (04/25/2025 8:33 AM EDT) us Historical Provider LAB BLOOD ORDERABLES Bette l Result from Last 3 Months Insurance [employer] Care Teams Horticultural Farmer Relationship Specialty Start Date End Date Junie Hand NP [address] [place] [facility] [id number] PCP - General 09/29/22
--- OUTSIDE RECORDS SUMMARY | 2025-06-02 08:26 | XMS_ITS | Encounter Summary ---
Author Organization [facility] Address [address] [place] [address] Care Team Providers Care Crawler Dragline Operator Name Role Phone Junie Hand NP Primary Care Provider [phone] Reason for Visit * Reason Onset Date Comments Medication Problem 05/11/2025 Encounter Details Date Type Department Care Team (Late st Contact Info) Description 05/11/2025 Telephone [facility] [address] [facility] [address] [place] [address] Marina Sandoval NP 300 [facility] [address] [place] [address] Social History Tobacco Use Types Packs/Day Years [...] on file documented as of this encounter Progress Notes * Marina Sandoval NP - 05/28/2025 3:54 PM EDT Noted. Will see patient tomorrow first thing in the morning * Miladys Sanders RN - 05/28/2025 3:09 PM EDT Please see below. Called pt back this PM. States GOLDBERG worsening over the last few days. States it iswhen he walks short distances and when doing activities. States out of breath while talking on phone but I do not hear any gasping or resp distress. States no CORAL, no CP, no dizziness. U/O is good - no changes. Weight today 123, weight yesterday 125, Sat 125 and Wednesday 127. BP on 05/23 110/60 HR 72 at 7:45 prior to meds. Is back on normal dosing 20mg in AM and 20mg in PM Torsemide (40mg total daily). Has been drinking water Gatorade, Propel, 1 Pepsi/day, 1 cup of coffee or tea. No alcohol. Has been eating frozen meals, canned carrots but states he rinses them, and has dinner with neighbors 2-3times a week and they cook/prepare meals using processed/canned foods, added salt. Is aware to reduce dietary sodium 2,000mg a day. Had him read a couple of food labels while on the phone. Is aware for any worsening s/s he should be calling 911. Daughter Margoth calling this PM. States she has concerns with her father's breathing. Is aware I have already done an assessment and aware I had told the pt that if he is having difficulty breathing he should be calling 911. Daughter wants guarantees that pt will be seen by a provider (sooner than 10 hours) if he goes to [facility] ER. Is aware I can not answer this question and that her father being seen timely in the ER is determined by many factors. Is aware I have suggested for pt to call 911 for any shortness of breath that is worsening already. Is asking to make soonest apt with Ambrocio Sandoval. Is aware Marina has an opening tomorrow at 7:40, states she would like pt to be seen then. Booked apt for tomorrow, add on email sent, daughter aware. Is aware if patient becomes unstable or has trouble breathing he should be calling 911 with no hesitation. States understanding. * Rex Mckeon MA - 05/28/2025 2:25 PM EDT Pt called stating his SOB on exertion has not gotten any better and would like to speak to a nurse regarding the next steps. Please call pt back. Thank you. * Miladys Sanders RN - 05/18/2025 2:00 PM EDT Margoth calling back this PM. States her father is not having worsening s/s, weight yesterday 123 andtoday 123.8. Has been taking Torsemide 40mg in Am and 20mg in PM that he started yesterday per A. Graveline recs below and last day of increase will be tomorrow. Will be going back on normal dosing on Wednesday, 20mg BID. Called pt this PM and states no worsening s/s and GOLDBERG slightly better. Confirmed weights listed above. Denies CORAL, CP, SOB at rest, PND, orthopnea. States U/O is about the same on the increased dose.Has been taking increased dose of Torsemide 40mg in AM and 20mg in PM for increased dose that he started yesterday. Is able to confirm his last increased dose is on Wednesday and will go back to normal dosing on Wednesday 20mg BID. Is aware for any worsening/concerning s/s would have to call 911. Is aware I would be calling back on Wednesday for an update. BMP, BNP to repeated on Wednesday. * Miladys Sanders RN - 05/18/2025 1:54 PM EDT LVM for daughter Margoth to call back. * Renuka Howe MA - 05/18/2025 1:45 PM EDT Images from the original note were not included. Please note HF diagnostics Heart failure diagnostics available in this device are suggestive of volume overload. Please phone patient to assess for symptoms of heart failure exacerbation: Weight gain, orthopnea, PND, increasedexertional dyspnea, recent clinical events, dietary indiscretion. Please convey this information to the primary cardiology team or go to as appropriate. * Tangela Torres RN - 05/16/2025 12:08 PM EDT Spoke w/Margoth and relayed AG's instructions for taking Torsemide 40 mg in am and 20 mg pm x3 days. They will continue normal dosing afterwards. Repeat labs next week. Confirmed preferred labs as Sherry and will f/u next week to see how pt is feeling. Asked to continue daily weights and to call ouroffice if he continues to gain weight of 2lbs or more in a day or 3-5 lbs over 3-5 days. Margoth verbalized understanding and she will call pt to review instructions. * Marga Palacio - 05/16/2025 10:50 AM EDT Patient returning call best call back number is [phone] * Marina Sandoval NP - 05/16/2025 10:38 AM EDT Lets have him take 40mg together in the morning and 20mg in the afternoon for the next 3 days * Tangela Torres RN - 05/16/2025 10:13 AM EDT Spoke w/Margoth. Confirmed that as of last week around 05/11, pt taking 40 mg torsemide daily. He wasdosing it as 20 mg in am and 20 mg pm. Confirming if ok for pt to take 40 mg torsemide BID for the 3 days as previously mentioned? * Marina Sandoval NP - 05/16/2025 10:04 AM EDT Please see task that I sent under the results for his recent blood work. * Tangela Torres RN - 05/16/2025 9:13 AM EDT Spoke w/Margoth. Margoth expressed frustration that pt was sent to the ER and nothing was done . The pt told her that The ER didn't know who Dr. Delarosa was - Margoth was questioning if expect was called. Noted to Margoth that in [facility] that expect was received regarding concerns. Validated frustration and explained that unfortunately our office cannot control what happens during ER stay. Margoth expressed that she does not want pt to go back to ER and wants the office to manage his care outpatient. Explained that the reason why pt was sent to the ER was d/t pt expressing worsening sob and ankle swelling yesterday. If he was not improving with oral diuretics, there was the concern he may need IV diuresis/further monitoring. Attempted to contact pt to further assess his symptoms. No response. LVM for pt to call back. Rajeshdanellemade aware that pt did not answer phone. Encouraged her to call back when she hears from pt if he doesn't call our office back. * Marga Palacio - 05/16/2025 8:08 AM EDT Spoke with patient's daughter she stated patient was sent to the ER last night and was not seen by a provider. Patient left AMA. She states patient should have been instructed to go to an urgent careinstead. She would like to speak to a triage nurse to streamline his care. Patient states she is upset and would like to know the next steps. Please advise. Best call back number is [phone] * Miladys Sanders RN - 05/15/2025 1:49 PM EDT Labs resulting - BNP down from 04/25. BNP on 04/25: 6491 Today's BNP 2256. BMP stable results. Called pt this PM. States SOB/GOLDBERG worsened, states SOB while at rest and while talking on the phone. Has been sleeping in the recliner for more ease of breathing. Still has abd bloating. Swelling in ankles slightly improved today. Has been urinating more but urine is dark yellow. Has been eating mostly home cooked meals but does mention he had beans from a can and had not rinsed them off prior tocooking them. Is aware based on worsening s/s that he would need to be evaluated in the ER. States he will be going to [facility]. Called expect to [facility]. * Marina Sandoval NP - 05/11/2025 2:41 PM EDT Resume torsemide 20 mg daily with BMP next week. Symptom management. ER should symptoms persist or worsen despite diuretic therapy. CHF education * Miladys Sanders RN - 05/11/2025 2:41 PM EDT Ambrocio Sandoval calling back this PM directly to triage. States to cont Torsemide 20mg daily for now with repeat labs (BMP/BNP) Wednesday. Called pt back this AM and made aware of Ambrocio Sandoval response above. Is aware to cont with Torsemide 20mg daily dosing and to get repeat labs (BMP/BNP) on Wednesday at [facility]. Is aware to keep BP/HR log with daily weights and report back after lab draw or sooner if needed. Is aware to call 911for any concerning s/s. * Miladys Sanders RN - 05/11/2025 1:55 PM EDT Has GOLDBERG and SOB with little activity. Has abd distention. Denies PND, orthopnea, CP, dizziness. States ankle swelling only. * Marina Sandoval NP - 05/11/2025 1:49 PM EDT Yes ok to recheck BMP. Patient remains asymptomatic on current dose correct? * Miladys Sanders RN - 05/11/2025 12:15 PM EDT Images from the original note were not included. Please see TE scanned into [employer] [facility] from PCP office under media tab and labs from 04/25 that were scanned into [employer] and reviewed by Conchita Delarosa with response: I have also included BNP lab results from 04/25 (available under media tab) that were never scanned into [employer] for review, BNP on 04/25: 6491. Called pt back this PM. States no repeat labs have been done, as he had forgotten to do them. Usually uses [facility] at [address] but I have asked him to go to [facility] and he is in agreement. Do you want me to order repeat BMP/BNP? Stopped Torsemide when he went to [place] on sulma from 04/01 - 04/06 only. Started taking Torsemide with no recs to do so on 04/07 and on 04/08 - 40mg. Was told by PCP to take 20mg on 04/09 and then had taken 10mg this AM per PCP. Weight 127.8 yesterday and today 127 - states no fluctuations. No BP/HR, has not been checking it, I have asked him to start doing so daily. Has GOLDBERG and SOB with little activity. Has abd distention. Denies PND, orthopnea, CP, dizziness. States ankle swelling only. Had been eating well at a family members house in [place], all home cooked meals with very little salt. No t/o foods. U/Ois a little more increased but on the darker yellow side. Has been drinking water 24oz/day, Gatorade 20oz x 2/day, 1-2 protein drinks/day, 1 (10oz) coffee/day. No alcohol. Is aware for any worsening/concerning s/s to call 911. Please advise further. * Yelitza Sams - 05/11/2025 11:43 AM EDT Patient called and stated that his primary care doctor wants to change the Torsemide that he takes to a different medication. Patient says it causes his ankles to swell and give him shortness of breath. He says his ankles have been swollen the past few days, and he would like a call back at [phone]. documented in this encounter Plan of Treatment Upcoming Encounters Date Type Department Care Team (Late st Contact Info) Description 07/10/2025 11:00 AM EST Ancillary Procedure [facility] [address] [facility] [address] [place] [address] documented as of this encounter Results * (ABNORMAL) Basic metabolic panel (05/21/2025 8:22 AM EDT) Sodium 137 133 - 145 mmol/L LAB CHEMISTRY METHOD 05/21/2025 10:25 AM [facility] Potassium 4.7 3.5 - 5.5 mmol/L LAB CHEMISTRY METHOD 05/21/2025 10:25 AM T [facility] Chloride 106 96 - 110 mmol/L LAB CHEMISTRY METHOD 05/21/2025 10:25 AM [facility] CO2 28 21 - 32 mmol/L LAB CHEMISTRY METHOD 05/21/2025 10:25 AM [facility] Anion Gap 3 3 - 11 LAB CHEMISTRY METHOD 05/21/2025 10:25 AM [facility] Glucose 157(H) 70 - 100 mg/dL LAB CHEMISTRY METHOD 05/21/2025 10:25 AM EDT [facility] BUN 30(H) 5 - 25 mg/dL LAB CHEMISTRY METHOD 05/21/2025 10:25 AM EDT [facility] Creatinine 1.29 0.70 - 1.30 mg/dL [...] 05/21/2025 9:40 AM EDT us Marina Sandoval NP LAB BLOOD ORDERABLES F inal Result [facility] [address] [place] [address], * (ABNORMAL) B-type natriuretic peptide (05/21/2025 8:22 AM EDT) BNP 815(H) <=100 pcg/mL LAB CHEMISTRY METHOD 05/21/2025 10:28 AM EDT [facility] Blood Venous blood specimen / Unknown Venipuncture / Unknown 05/21/2025 8:22 AM EDT 05/21/2025 9:45 AM EDT us Marina Sandoval NP LAB BLOOD ORDERABLES F inal Result Performing Organization Address [facility]/ZIP Co de Phone Number [facility] [address] [place] [address], * (ABNORMAL) B-type natriuretic peptide (05/15/2025 9:35 AM EDT) BNP 2,256(H) <=100 pcg/mL LAB CHEMISTRY METHOD 05/15/2025 1:10 PM EDT [facility] Blood Venous blood specimen / Unknown Venipuncture / Unknown 05/15/2025 9:35 AM EDT 05/15/2025 12:14 PM EDT Marina Sandoval NP LAB BLOOD ORDERABLES F inal Result Performing Organization Address [facility] Co de Phone Number [facility] [address] [place] [address], * (ABNORMAL) Basic metabolic panel (05/15/2025 9:35 AM EDT) [facility] Sodium 139 133 - 145 mmol/L LAB CHEMISTRY METHOD 05/15/2025 1:26 PM T [facility] Potassium 4.6 3.5 - 5.5 mmol/L LAB CHEMISTRY METHOD 05/15/2025 1:26 PM EDT [facility] Chloride 108 96 - 110 mmol/L LAB CHEMISTRY METHOD 05/15/2025 1:26 PM T [facility] CO2 26 21 - 32 mmol/L LAB CHEMISTRY METHOD 05/15/2025 1:26 PM EDT [facility] Anion Gap 5 3 - 11 LAB CHEMISTRY METHOD 05/15/2025 1:26 PM [facility] Glucose 143(H) 70 - 100 mg/dL LAB CHEMISTRY METHOD 05/15/2025 1:26 PM EDT [facility] BUN 24 5 - 25 mg/dL LAB CHEMISTRY METHOD 05/15/2025 1:26 PM EDT [facility] Creatinine 1.08 0.70 - 1.30 mg/dL LAB CHEMISTRY METHOD 05/15/2025 1:26 PM EDT [facility] eGFR 73 >=60 mL/min/1. 73m2 LAB CHEMISTRY METHOD 05/15/2025 1:26 PM EDT [facility] Comment:Calculation based on the Chronic Kidney Disease Epidemiology Collaboration (CKD-EPI) equation refit without adjustment for race. BUN/Creatinine Ratio 22.2 LAB CHEMISTRY METHOD 05/15/2025 1:26 PM EDT [facility] Calcium 9.0 8.5 - 10.5 mg/dL LAB CHEMISTRY METHOD 05/15/2025 1:26 PM EDT [facility] Blood Venous blood specimen / Unknown Venipuncture / Unknown 05/15/2025 9:35 AM EDT 05/15/2025 12:11 PM EDT Marina Sandoval NP LAB BLOOD ORDERABLES F inal Result [facility] [address] [place] [address], documented in this encounter Visit Diagnoses Diagnosis Shortness of breath- Primary Paroxysmal A-fib (CMS/HCC V24, CMS/HCC V28) Encounter for adjustment or management of cardiac device documented in this encounter Care Teams Crawler Dragline Operator Relationship Specialty Start Date End Date Junie Hand NP [address] [place] [address] PCP - General 09/29/22 documented as of this encounter
--- OUTSIDE RECORDS SUMMARY | 2025-06-02 08:27 | XMS_ITS | Encounter Summary ---
Author Organization [facility] Address [address] [place] [address] Care Team Providers Care Graduate Assistant Athletic Trainer Name Role Phone Yazan Junie MARTINEZ Primary Care Provider [phone] Reason for Visit * Reason Onset Date Comments testing 05/28/2025 Encounter Details Date Type Department Care Team (Late st Contact Info) Description 05/28/2025 Telephone [facility] - [facility] [address] [facility] [address] [place] [id number] Jeffrey Delarosa MD 300 [facility] [address] [place] [address] Social History Tobacco Use Types Packs/Day Years [...] as of this encounter Progress Notes * Rex Mckeon MA - 05/28/2025 3:28 PM EDT Please see 05/11 message as that was updated today. Thank you! * Marina Sandoval NP - 05/28/2025 2:39 PM EDT There is nothing in the 05/11 TC that indicates testing. Need records from [facility] * Rex Mckeon MA - 05/28/2025 2:24 PM EDT Please see 05/11 message. * Marina Sandoval NP - 05/28/2025 2:06 PM EDT I do not. I would log into [facility] or call the patient and inquire about which test he is questioning so we can look into it for him * Rex Mckeon MA - 05/28/2025 2:01 PM EDT Do you know what this is about? I dont see any labs or tests ordered by you. Please advise. Liudmila. * Supa Valenzuela - 05/28/2025 1:55 PM EDT Patient is calling, wanting to speak with someone regarding a test he said he went to [facility] for and they did nothing . Patient is wanting to speak with someone. documented in this encounter Plan of Treatment Upcoming Encounters Date Type Department Care Team (Late st Contact Info) Description 07/10/2025 11:00 AM EST Ancillary Procedure [facility] - [address] [place] [address] documented as of this encounter Visit Diagnoses Not on filedocumented in this encounter Care Teams Graduate Assistant Athletic Trainer Relationship Specialty Start Date End Date Junie Hand NP [facility] [address] [place] [address] PCP - General 09/29/22 documented as of this encounter
--- OUTSIDE RECORDS SUMMARY | 2025-06-02 08:27 | XMS_ITS | Clinical Summary ---
Author Organization [facility] Address [address] [place] [address] Care Team Providers Care Asw/Asuw Tactical Air Controller Name Role Phone Jenae Hahn MD Primary [...] MINI PEN NEEDLES 31G X 5 MM [facility] USE 1 PEN NEEDLE [...] PCV20) 03/03/2019 01/06/2019 COVID-19 Vaccine (4 - 2024-2 6 season) 2025 05/26/2021, 11/20/2020, 10/30/2020 Influenza Vaccine (#1) 2025 05/26/2021 Hepatitis B Vaccines Aged Out No long er eligible based on patient's age to complete this topic RSV Ped < 20 months Aged Out No longe r eligible based on patient's age to complete this topic Care Teams Asw/Asuw Tactical Air Controller Relationship Specialty Start Date End Date Jenae Hahn MD [address] [place], [place] PCP - General Pulmonary Disease 09/23/21
--- OUTSIDE RECORDS SUMMARY | 2025-06-02 08:29 | XMS_ITS | Patient Health Record ---
Author Organization [facility] Address [address] [facility] [place] [address] Care Team Providers Care Machine Stonecutter Name Role Phone Yazna, Junie Primary Care Provider UnavailJulissa Grace Unavailable [phone] Jorge Huddleston Unavailable [phone] Allergies No Known Allergies Reason For Referral [...] Problem Status W/U Status Risk Notes Problem Polyneuropathy due to type 2 diabetes mellitus (912843346) Type 2 diabetes mellitus with diabetic polyneuropathy (E11.42) Active confirmed Vital Signs Height 5ft 8in in 01/16/2025 Weight 128 lbs 01/16/2025 BMI 19.46 kg/m2 01/16/2025 Procedures Procedure Date Ordered Date Performed Result Body Sit e 14887-PTCSDYN NAIL, 6 OR MORE 01/16/2025 N/A Encounters Encounter Location Date Provider Diagnosis [facility] [address] [address] 01/16/2025 Julissa Ellison Tinea unguium B35.1 ; [...] Treatment Pending Test Test Name Order Date [id number] NAIL, 6 OR MORE 01/16/2025 [id number] SKIN LESIONS, OVER 4 01/02/20 23 64500-LEBV SKIN LESIONS, 2 TO 4 01/03/20 22 [id number] DYSTROPHIC NAILS ANY # Next Appt Details Provider Name:Julissa schmitt, 01/15/2026 11:00:00 AM, [address], [place], [address], Insurance Providers Payer Name Payer Address Payer Phone Subscriber Number Group Number Insured Name Patient Relationship to Insured Coverage Start Date Coverage End Date [employer]age [address] [place] [address] [id number] Errol Rodrigues Self - patient is the [...]
== END 2025-06-02 08:24 | disposition home or self-care (01) ==
LOC: HO.CT 08:23
PROVIDERS: PCP Nurse Practitioner Family; Visit Provider Nurse Practitioner Family
DX: R91.1 Solitary pulmonary nodule (principal); J92.9 Pleural plaque without asbestos; J90 Pleural effusion, not elsewhere classified
CPT/HCPCS: 71250

== ENCOUNTER → 2025-06-02 08:25 | Outpatient (BNV) | payer MEDICARE, SELFPAY | PROVIDERS: PCP Nurse Practitioner Family; Visit Provider Radiology Diagnostic Radiology | DX: J43.9 Emphysema, unspecified (principal); J90 Pleural effusion, not elsewhere classified; R91.8 Other nonspecific abnormal finding of lung field | CPT/HCPCS: 71250 ==

== ENCOUNTER 2025-06-08 15:33 | Outpatient (AMB) | payer MEDICARE, SELFPAY ==
[2025-06-08 15:35] VITALS: BP 96/48; PULSE 70; O2SAT 97; BMI 19.2
--- NOTE | 2025-06-08 15:35 | A.OFFVIS_ITS ---
Vital Signs 3 06/08/25 15:35 Height 5 ft 8 in Weight 126 lb 8 oz BMI 19.2 BP 96/48 L Blood Pressure Location Rt brachial Position Sitting Pulse 70 Pulse Source Pulse Oximeter Pulse Oximetry (%) 97 Oxygen Delivery Method Room Air Intake Visit Reasons: COPD Allergies No Known Allergies Allergy (Verified 06/08/25 15:38) HPI HPI COPD: Details: Errol is a pleasant 70-year-old male, current 50+ year smoker with underlying COPD, coronary artery disease status post CABG x4, atrial fibrillation, hypertension, hyperlipidemia and heart failure with preserved EF. Today he is accompanied by his daughter. He reports moderate control with Trelegy and DuoNeb BID however has required prednisone recently and will be finishing course tomorrow. He reports resolution of wheezing with use and improved dyspnea. He also has been using DuoNeb BID since obtaining mask for therapy. Unfortunately patient continues to smoke, now down to 8-10 cigarettes per day, not ready to quit at this time. Today he presents to review chest CT results. Since the last visit patient has been evaluated by cardiology who has switched him from lasix to torsemide with improvements, previously CT chest revealed mild right pleural effusion. Last echo 2021 however patient not sure if he had repeat imaging since. [facility] Medical History (Updated 06/20/25 @ 13:09 by Shannon Rosales NP) Diabetes mellitus Social History (Updated 06/08/25 @ 15:38 by Sherry Peace CMA) Patient Tobacco Use Status: Current everyday Tobacco user Cigarette Packs Per Day: 0.5 Cigarettes Per Day: 10 Review of Systems Const Denies chills, Denies excessive sweating, Denies fever(s), Denies headache(s) and Denies night sweats Eyes Denies dry eyes, Denies irritation and Denies itchy eyes ENT Reports Normal hearing present, Denies headache(s), Denies nasal congestion, Denies nasal discharge, Denies post nasal drip and Denies sore throat Card Denies chest pain, Denies chest pain at rest, Denies chest pain with activity, Denies claudication, Denies leg edema, Denies dyspnea, Denies orthopnea and Denies paroxysmal nocturnal dyspnea Resp Denies chest congestion, Denies excessive phlegm production, Denies pain on inspiration, Denies pain with cough, Denies dyspnea and Denies stridor Musc Denies myalgias Neuro Reports Normal hearing present and Denies headache(s) Endo Denies excessive sweating Ezekiel/Lymph Denies lymphadenopathy Aller/Immun Denies itchy eyes and Denies seasonal rhinorrhea Physical Exam Vital Signs: Last Vital Signs Pulse 70 06/08/25 15:35 BP 96/48 L 06/08/25 15:35 Pulse Ox 97 06/08/25 15:35 Oxygen Delivery Method Room Air 06/08/25 15:35 BMI result Body Mass Index 19.2 Const General: cooperative, healthy appearing, comfortable, no acute distress and alert Orientation/consciousness: patient oriented x3 Limitations: no limitations HEENT Head: Yes normal to inspection, Yes normocephalic and Yes atraumatic Ears: hearing grossly normal bilaterally and external ears normal Eyes General: appearance normal, both eyes and all related structures Eyelids: Yes eyelids normal Sclerae: sclerae normal EOM: EOMs intact bilaterally Neck Neck: Yes normal visual inspection and Yes no lymphadenopathy Lymphatic: no lymphadenopathy noted Chest Chest palpation & inspection: normal inspection of the chest Resp Effort & Inspection: normal respiratory effort, able to speak in complete sentences, no audible wheezes, no cough, no stridor, not tachypneic, no tripod positioning and no use of accessory muscles Auscultation: diminished lung sounds Cardio Jugular venous distension: no JVD Rate: regular rate Rhythm: regular rhythm Skin Other: warm, dry General skin exam: no rashes or lesions noted Neuro General: patient oriented x3 Cranial nerves: Yes Normal hearing present Cognition (Neuro): normal cognition Gait exam (Neuro): Normal gait present Extrem General: Yes normal to inspection, Yes capillary refill normal, Yes no clubbing, cyanosis or edema and Yes no pedal edema Psych Appearance: grossly normal and well kempt Speech and movement: Normal speech and movement present and Clear speech present Affect: normal affect Attitude: cooperative Thought process: Normal thought process present Thought content: Normal thought content present Insight: Good insight present (Psych) Judgement: Good judgement present (Psych) Results Reviewed Results Reviewed: [address] [address] [address] Scan Report Signed Patient: Errol Rodrigues MR#: [id number] : 1955 Acct:[id number] Age/Sex: 70 / M ADM Date: 06/02/25 Loc: .CT Attending Dr: Shannon Rosales NP Ordering Physician: Shannon Rosales NP Date of Service: 06/02/25 Procedure(s): CT chest wo IV con Accession Number(s): [id number] cc: Junie Hand NP; Shannon Rosales NP~ Report Number: [id number]: Total DLP = 154.00 mGy-cm Reason for Exam: R91.1 - Solitary pulmonary nodule EXAMINATION: CT CHEST WITHOUT IV CONTRAST INDICATION: R91.1 - Solitary pulmonary nodule COMPARISON: There are no prior studies available for comparison. TECHNIQUE: Helical CT scan of the chest was performed without intravenous contrast. Coronal and sagittal reformatted images were generated and reviewed. This CT exam was performed with one or more of the following dose reduction techniques: automated exposure control, adjustment of the mA and/or kV according to patient size, use of iterative reconstruction technique. DLP: 154 mGy-cm CHEST: THYROID: The thyroid is unremarkable. LUNGS: There is mild to moderate emphysema. Again seen is a 5 mm nodule in the right lower lobe (series 5, image 95), and a 4 mm nodule more inferiorly in the right lower lobe (series 5, image 131). No new pulmonary nodules are identified. There is scarring in the anterior aspects of the right middle lobe and lingula. There is also scarring at the left lung base. MEDIASTINUM: There is no mediastinal lymphadenopathy. GRETCHEN: Evaluation of the hilar regions is limited by lack of intravenous contrast material. CARDIOVASCULATURE: The heart is enlarged. There is no pericardial effusion. There is severe atherosclerotic calcification of the thoracic aorta, which is normal in caliber. DEGREE OF CORONARY CALCIFICATION: severe, status post CABG procedure. PLEURA: There is a small right pleural effusion and a trace left pleural effusion. No pneumothorax. MAIN AIRWAYS: The mainstem bronchi and proximal branches are patent. AXILLA: There is no axillary lymphadenopathy. BONES AND SOFT TISSUES: Unremarkable UPPER ABDOMEN: The visualized portions of the liver, spleen, and adrenals have an unremarkable unenhanced appearance. CT/CT chest wo IV con IMPRESSION: 1. Mild to moderate emphysema. 2. Stable right lower lobe pulmonary nodules as described. A follow-up chest CT is recommended in 12 months. 3. Small right pleural effusion and trace left pleural effusion. 4. Because mild to moderate emphysema is an independent risk factor for lung cancer, consider entering the patient into a program of yearly lung cancer screening with low dose chest CT. Electronically signed by: Bart Manjarrez MD 06/04/2025 07:24 AM EDT RP Dictated By: Bart Manjarrez MD Signed By: <Electronically signed by Bart Manjarrez MD in OV> 06/04/25 0724 Assessment & Plan Assessment & Plan (1) COPD (chronic obstructive pulmonary disease): Code(s): J44.9 - Chronic obstructive pulmonary disease, unspecified Category: Medical (2) Nicotine dependence, cigarettes, uncomplicated: Code(s): F17.210 - Nicotine dependence, cigarettes, uncomplicated Category: Medical (3) Pulmonary nodule: Code(s): R91.1 - Solitary pulmonary nodule Category: Medical (4) Pleural effusion: Code(s): J90 - Pleural effusion, not elsewhere classified Category: Medical (5) Pleural thickening: Code(s): J92.9 - Pleural plaque without asbestos Category: Medical Plan At this time patient with improvements since initiating prednisone, encouraged to complete and continue with Trelegy in addition to DuoNeb. Chest CT 01/2025 revealed small pleural effusion, pleural thickening and pulmonary nodule largest 6mm. Reviewed chest CT 05/2025 which revealed mild to moderate emphysematous changes, small right pleural effusion and trace left pleural effusion, however recently switched diuretics per cardiology recommendations. There was also LLL scarring demonstrated however compared to prior chest CT in January 2025, appears to have a nodular density measuring approximately 1 cm. Given ongoing weight loss and significant smoking history, will send for PET for further evaluation. Will also send for echo as prior from 2021. Patient is aware to call if symptoms change. Smoking cessation reviewed and patient working towards quitting. All questions were answered and patient is in agreement of plan. Will follow up to review results or sooner if needed. Coding Level of Care Code Est Pt Level 4 (13418) Diagnoses COPD (chronic obstructive pulmonary disease) J44.9 Nicotine dependence, cigarettes, uncomplicated F17.210 Pulmonary nodule R91.1 Pleural effusion J90 Pleural thickening J92.9
== END 2025-06-08 16:21 | disposition home or self-care (01) ==
LOC: HO.HPSW 15:34
PROVIDERS: PCP Nurse Practitioner Family; Visit Provider Nurse Practitioner Family
DX: J44.9 Chronic obstructive pulmonary disease, unspecified (principal); F17.210 Nicotine dependence, cigarettes, uncomplicated; R91.1 Solitary pulmonary nodule; J90 Pleural effusion, not elsewhere classified; J92.9 Pleural plaque without asbestos
CPT/HCPCS: 99214

== ENCOUNTER → 2025-06-08 15:33 | Outpatient (BNVA) | payer MEDICARE, SELFPAY | PROVIDERS: PCP Nurse Practitioner Family; Visit Provider Nurse Practitioner Family | DX: R91.1 Solitary pulmonary nodule (principal); J90 Pleural effusion, not elsewhere classified; J44.9 Chronic obstructive pulmonary disease, unspecified; F17.210 Nicotine dependence, cigarettes, uncomplicated; J92.9 Pleural plaque without asbestos | CPT/HCPCS: 99212 ==

== ENCOUNTER 2025-07-04 10:58 | Outpatient (AMB) | payer MEDICARE, SELFPAY ==
--- OUTSIDE RECORDS SUMMARY | 2024-01-04 07:30 | XMS_ITS ---
Author Organization [facility] all[place] Address [address] [place] [address] Care Team Providers Care Prosthetic Lab Technician Name Role Phone Junie Hand Primary Care Provider Julissa Gaviria Unavailable [phone] Jorge Huddleston Unavailable [phone] Ruth Encounters Encounter Location Date Provider Diagnosis [address] [address] 01/04/2024 Jorge Huddleston Plan Of Treatment Next Appt Details Provider Name:Julissa schmitt, 01/15/2026 11:00:00 AM, [facility] [address], [address], Progress Notes * Errol RODRIGUES JrDOB:[birth year] (70 yo M)Acc No.[id number]:01/04/2024 Progress Note Patient: Pili SOSA Errol Harrison Jr Provider: Yesica Hernandez DPM :1955 A ge:68 Y S ex:Male Date:01/04/2024 Address:[address] [place] [phone] Pcp:Junie Hand Subjective: * Chief Complaints: * [address] Ruth. * Medical History: Objective: * Vitals: Assessment: Plan: * Treatment: * Images: * The named appointment provid er may or may not be the originator of this progress note, and it is not deemed complete until electronically signed by the appointment provider. Sign off status: Pending * Provider: Yesica Hernandez DPM Date: 0 01/04/2024 Generated for Grecia alexis/Siddharth on: 09/03/2024 01:00 PM EST
--- OUTSIDE RECORDS SUMMARY | 2025-01-16 06:00 | XMS_ITS ---
Author Organization [facility] [place] Address [address] [place] [address] Care Team Providers Care Party Host Name Role Phone Junie Hand Primary Care Provider Julissa Gaviria Unavailable [phone] Jorge Huddleston [phone] Encounters Encounter Location Date Provider Diagnosis [facility] [address] [address] 01/16/2025 Jorge Huddleston Plan Of Treatment Next Appt Details Provider Name:Julissa schmitt, 01/15/2026 11:00:00 AM, [address] [place] [address], [phone], Progress Notes * Errol RODRIGUES JrDOB:[birth year] (70 yo M)Acc No.[id number]:01/16/2025 Progress Note Patient: Errol MAYO [place] Provider: Yesica Hernandez DPM :1955 A ge:69 Y S ex:Male Date:01/16/2025 Address:[address] [place] [id number] Pcp:Junie Hand Subjective: * Chief Complaints: * * Medical History: Objective: * Vitals: Assessment: Plan: * Treatment: * Images: * The named appointment provid er may or may not be the originator of this progress note, and it is not deemed complete until electronically signed by the appointment provider. Sign off status: Pending * Provider: Yesica Hernandez DPM Date: 0 01/16/2025 Generated for Grecia Odonnell on: 09/03/2024 01:00 PM EST
--- OUTSIDE RECORDS SUMMARY | 2025-07-01 12:53 | XMS_ITS | Encounter Summary ---
Author Organization [facility] Address [address] [place] [address] Care Team Providers Care Binder Operator Name Role Phone Junie Hand NP Primary Care Provider Reason for Visit * Reason Comments Shortness of Breath Encounter Details Date Type Department Care Team (Late st Contact Info) Description 07/01/2025 12:53 PM EST - 07/01/2025 4:13 PM [facility] Emergency [address] [place] [address] Pneumonia due to infectious organism, unspecified laterality, unspecified part of lung (Primary Dx); Congestive heart failure, unspecified HF chronicity, unspecified heart failure type (CMS/HCC V24, CMS/HCC V28); Hypoxia; Shortness of breath; Hyperglycemia; Weakness; Elevated brain natriuretic peptide (BNP) level Discharge Disposition: Home or Self Care Social History Tobacco Use Types Packs/Day Years Used Date Smoking Tobacco: Every Day Cigarettes Smokeless Tobacco: Never Alcohol Use Standard Drinks/Week Comments Not Currently 0 (1 standard drink = 0.6 oz pur e alcohol) Housing Instability Answer Date Recorde d Are you worried that in the next 2 months you may not have stable housing? No 06/25/2025 Food Access & Nutrition Answer Date Rec orded Do you have access to a vari ety of food including fruits and vegetables? Yes 06/25/2025 Access to Healthcare Answer Date Record ed Within the last 3 months, ho w many times did you visit the emergency department for your medical care? 2 06/25/2025 Health Literacy Answer Date Recorded How often do you need to hav e someone help you when you read instructions, pamphlets, or other written material from your doctor or pharmacy? Patient declined 06/25/2025 Caregiver: How often do you need to have someone help you when you read instructions, pamphlets, or other written material from your doctor or pharmacy? Not on file 025 Financial Risk Answer Date Recorded How hard is it for you to pa y for the very basics like food, housing, medical care, and air conditioning / heating? Not very hard 06/25/2025 Transportation Answer Date Recorded Has the lack of transportati on kept you from meetings, work, or from getting things needed for daily living? No Has the lack of transportati on kept you from medical appointments or from getting medications? No 06/25/2025 Social Isolation Answer Date Recorded How often do you feel lonely or isolated from th ose around you? Rarely 06/25/2025 Food Risk Answer Date Recorded Within the past 12 months we worried whether our food would run out before we got money to buy more. Never true 06/25/2025 Within the past 12 months th e food we bought just didn't last and we didn't have money to get more. Never true 06/25/2025 Dependent Care Answer Date Recorded Do you need help finding or paying for care for your loved ones. For example, director maternal child or elderly care for an older adult? No 06/25/2025 Education Answer Date Recorded Do you think completing more education or training, like finishing a GED, going to college, or learning a trade, would be helpful for you? Patient declined 06/25/2025 Employment and Income Answer Date Recor ded During the last four weeks, have you been actively looking for work? No 06/25/2025 Living Situation Answer Date Recorded What is your living situation? Unrecognized valu e 06/25/2025 Interpersonal Safety Answer Date Record ed Physical Abuse Unrecognized value 06/25/2025 Verbal Abuse Unrecognized value 06/25/2025 Sex and Gender Information Value Date Recorded Sex Assigned at Not on file Legal Sex Male 7:02 AM EST Gender Identity Not on file Sexual Orientation Not on file documented as of this encounter Last Filed Vital Signs Vital Sign Reading Time Taken Comments Blood Pressure 121/56 07/01/2025 1:00 PM EST Pulse 72 07/01/2025 1:00 PM EST Temperature 36.9 C (98.5 F) 07/01/2025 1:00 PM EST Respiratory Rate 19 07/01/2025 1:00 PM EST Oxygen Saturation 92% 07/01/2025 2:1 0 PM EST Patient oxygen stayed between 92%-95% when ambulating. Patient had to take some breaks inbetween and by the end was tired. By the end the O2 sat went down to the 90% but went back up to 94% after resting. Patient felt winded afterwards. Inhaled Oxygen Concentration - - Weight 56.8 kg (125 lb 3.2 oz) 07/01/2025 1:00 PM EST Height 172.7 cm (5' 8 ) 07/01/2025 1:00 PM EST Body Mass Index 19.04 07/01/2025 1:00 PM EST documented in this encounter Functional Status * Calculated C-SSRS Risk Score (Lifetime/Recent) Answer Date of Assessment Author No Risk Indicated 07/01/2025 1:01 PM EST Ricardo Urena RN * [place] Suicide Severity Rating Scale (Screener/Recent Self-Report) Question Answer Date of Assessment Author 1. Wish to be (Past 1 Month) No 025 1:01 PM Ricardo Miller RN 2. Non-Specific Active Suici jamison Thoughts (Past 1 Month) No 07/01/2025 1:01 PM EST Jesse Urena RN 6. Suicidal Behavior (Lifetime) No 5 1:01 PM EST Ricardo Urena RN documented as of this encounter Discharge Instructions * Discharge Instructions* Lianna Hoffmann, JUAN - 07/01/2025 4:03 PM EST Please discuss with your PCP the need for increased intervention and possible placement in a rehab. Please discuss with your PCP the use of sliding scale insulin while he is on the prednisone to [place] sugars in a more reasonable level. If you begin to have any recurrence of any of your symptoms please return to the emergency department immediately. documented in this encounter Medications at Time of Discharge aspirin 81 mg chewable tablet Chew 1 tablet (81 mg total) 1 (one) time each day. 2 atorvastatin (LIPITOR) 80 mg tablet Take 1 tablet (80 mg total) by mouth every other day. NIGHTLY carvediloL (COREG) 3.125 mg tablet Take 1 tablet (3.125 mg total) by mouth 2 (two) times a day with meals. 180 each 3 4 08/18/20 25 ferrous sulfate 325 mg (65 mg iron) EC tablet Take 1 tablet (325 mg total) by mouth 2 (two) times a day with meals. 0800 + 1700 FLUoxetine (PROzac) 40 mg capsule Take 1 capsule (40 mg total) by mouth 1 (one) time each day. fluticasone-umeclid inium-vilanterol (Trelegy Ellipta) 200-62.5-25 mcg inhaler Inhale 1 puff (200 mcg total) by mouth 1 (one) time each day. Rinse mouth with water after use to reduce aftertaste and incidence of candidiasis. Do not swallow. gabapentin (NEURONTIN) 100 mg capsule Take 2 capsules (200 mg total) by mouth at bedtime. ipratropium-albuter oL (DUONEB) 0.5-2.5 mg/3 mL nebulizer solution Take 3 mL by nebulization every 6 (six) hours if needed for wheezing. 5 isosorbide mononitrate (IMDUR) 30 mg 24 hr tabletIndications:C oronary artery disease, unspecified vessel or lesion type, unspecified whether angina present, unspecified whether tribal or transplanted heart,Ischemic cardiomyopathy Take 1 tablet (30 mg total) by mouth 1 (one) time each day. Do not crush or chew. 90 each 1 5 06/08/20 26 metFORMIN (FORTAMET) 1,000 mg 24 hr tablet Take 1 tablet (1,000 mg total) by mouth 1 (one) time each day with dinner. Do not crush, chew, or split. metFORMIN XR (GLUCOPHAGE-XR) 500 mg 24 hr tablet Take 1 tablet (500 mg total) by mouth 1 (one) time each day. multivitamin (MULTIPLE VITAMINS ORAL) Take 1 tablet by mouth daily. NON FORMULARY VITAMIN C predniSONE (DELTASONE) 10 mg tablet Take 3 tablets (30 mg total) by mouth 1 (one) time each day for 2 days, THEN 2 tablets (20 mg total) 1 (one) time each day for 2 days, THEN 1 tablet (10 mg total) 1 (one) time each day for 2 days, THEN 0.5 tablets (5 mg total) 1 (one) time each day for 2 days. TAKE 4 TABLETS BY MOUTH ONCE DAILY FOR 3 DAYS, THEN TAKE 3 TABLETS BY MOUTH ONCE DAILY FOR 3 DAYS, THEN TAKE 2 TABLETS BY MOUTH ONCE DAILY FOR 3 DAYS, THEN TAKE 1 TABLET BY MOUTH ONCE DAILY FOR 3 DAYS. 5 07/06/20 25 sacubitriL-valsarta n (ENTRESTO) 24-26 mg per tablet Take 1 tablet by mouth twice daily 60 tablet 6 5 SITagliptin phosphate (JANUVIA) 25 mg tablet Take 1 tablet (25 mg total) by mouth 1 (one) time each day. torsemide 40 mg tablet Take 40 mg by mouth 1 (one) time each day. 90 tablet 3 5 traZODone (DESYREL) 100 mg tablet Take 1 tablet (100 mg total) by mouth at bedtime. Vitamin B-1 250 mg tablet Take 1 tablet (250 mg total) by mouth 1 (one) time each day. documented as of this encounter Discharge Disposition Disposition Code Departure Means Destination Comment s Home or Self Care documented in this encounter Progress Notes * Ricardo Urena RN - 07/01/2025 12:53 PM EST Patient BIBA from home with complaints of SOB and some weakness. PER EMS was stating 90% on RA. PEREMS, At baseline is on 2L O2 at home. Hx of diabetes type 2, COPD, CHF. No known allergies. blood glucose for EMS was 516. * Lianna Hoffmann NP - 07/01/2025 12:52 PM EST Images from the original note were not included. [facility] EMERGENCY EMERGENCY DEPARTMENT ENCOUNTER CHIEF COMPLAINT Chief Complaint Patient presents with Shortness of Breath HISTORY OF PRESENT ILLNESS This 70-year-old male presents to the emergency department with complaints of low oxygen level on his pulse oximetry at home. Patient was discharged on 06/28/2025 after being in the hospital for sepsis with pneumonia. He was originally sent to a rehab facility however he was very unhappy there and was discharged to home. Unfortunately they were unable to transfer him to a different rehab facilitywhich would have probably been a better choice. Patient states that in the last 24 to 36 hours he has developed increasing weakness. He has noted his oxygen saturations dropping down into the high 80s. He has developed weakness and was unable to stand at the stove and cook his meals. He denies any chills, fevers, nausea, vomiting, or headache. He does admit to a wet cough productive for yellowishphlegm. His daughter is here with them and they have made contact with the [facility] who could not take the patient as a direct admit but reports that he comes to the emergency department and gets e valuated he can be admitted there for rehabilitation. Patient's health [employer] insurance is incurring admission restrictions above. PAST MEDICAL HISTORY Medical History[1] Problem List[2] SURGICAL HISTORY Surgical History[3] CURRENT MEDICATIONS Previous Medications ASPIRIN 81 MG CHEWABLE TABLET Chew 1 tablet (81 mg total) 1 (one) time each day. ATORVASTATIN (LIPITOR) 80 MG TABLET Take 1 tablet (80 mg total) by mouth every other day. NIGHTLY CARVEDILOL (COREG) 3.125 MG TABLET Take 1 tablet (3.125 mg total) by mouth 2 (two) times a day withmeals. FERROUS SULFATE 325 MG (65 MG IRON) EC TABLET Take 1 tablet (325 mg total) by mouth 2 (two) times aday with meals. 0800 + 1700 FLUOXETINE (PROZAC) 40 MG CAPSULE Take 1 capsule (40 mg total) by mouth 1 (one) time each day. IPBUMHNQYYY-HAXAZVOLSMRG-HIMKESFMLG (TRELEGY ELLIPTA) 200-62.5-25 MCG INHALER Inhale 1 puff (200 mcg total) by mouth 1 (one) time each day. Rinse mouth with water after use to reduce aftertaste and incidence of candidiasis. Do not swallow. GABAPENTIN (NEURONTIN) 100 MG CAPSULE Take 2 capsules (200 mg total) by mouth at bedtime. IPRATROPIUM-ALBUTEROL (DUONEB) 0.5-2.5 MG/3 ML NEBULIZER SOLUTION Take 3 mL by nebulization every 6(six) hours if needed for wheezing. ISOSORBIDE MONONITRATE (IMDUR) 30 MG 24 HR TABLET Take 1 tablet (30 mg total) by mouth 1 (one) timeeach day. Do not crush or chew. METFORMIN (FORTAMET) 1,000 MG 24 HR TABLET Take 1 tablet (1,000 mg total) by mouth 1 (one) time each day with dinner. Do not crush, chew, or split. METFORMIN XR (GLUCOPHAGE-XR) 500 MG 24 HR TABLET Take 1 tablet (500 mg total) by mouth 1 (one) timeeach day. MULTIVITAMIN (MULTIPLE VITAMINS ORAL) Take 1 tablet by mouth daily. NON FORMULARY VITAMIN C PREDNISONE (DELTASONE) 10 MG TABLET Take 3 tablets (30 mg total) by mouth 1 (one) time each day for2 days, THEN 2 tablets (20 mg total) 1 (one) time each day for 2 days, THEN 1 tablet (10 mg total) 1 (one) time each day for 2 days, THEN 0.5 tablets (5 mg total) 1 (one) time each day for 2 days. TAKE 4 TABLETS BY MOUTH ONCE DAILY FOR 3 DAYS, THEN TAKE 3 TABLETS BY MOUTH ONCE DAILY FOR 3 DAYS, THEN TAKE 2 TABLETS BY MOUTH ONCE DAILY FOR 3 DAYS, THEN TAKE 1 TABLET BY MOUTH ONCE DAILY FOR 3 DAYS. SACUBITRIL-VALSARTAN (ENTRESTO) 24-26 MG PER TABLET Take 1 tablet by mouth twice daily SITAGLIPTIN PHOSPHATE (JANUVIA) 25 MG TABLET Take 1 tablet (25 mg total) by mouth 1 (one) time eachday. TORSEMIDE 40 MG TABLET Take 40 mg by mouth 1 (one) time each day. TRAZODONE (DESYREL) 100 MG TABLET Take 1 tablet (100 mg total) by mouth at bedtime. VITAMIN B-1 250 MG TABLET Take 1 tablet (250 mg total) by mouth 1 (one) time each day. ALLERGIES Patient has no known allergies. FAMILY HISTORY Family History[4] SOCIAL HISTORY Social History Socioeconomic History Marital status: Spouse name: Not on file Number of children: Not on file Years of education: Not on file Highest education level: Not on file Occupational History Not on file Tobacco Use Smoking status: Every Day Current packs/day: 1.00 Types: Cigarettes Smokeless tobacco: Never Substance and Sexual Activity Alcohol use: Not Currently Drug use: Never Sexual activity: Defer Other Topics Concern Not on file Social History Narrative Not on file Vitals: 07/01/25 1300 BP: 121/56 BP Location: Left arm;Upper Patient Position: Lying Pulse: 72 Resp: 19 Temp: 36.9 ??C (98.5 ??F) TempSrc: Oral SpO2: 93% Weight: 56.8 kg (125 lb 3.2 oz) Height: 1.727 m (68 ) Pulse Oximetry 93% interpretation normal in my independent interpretation Supplemental Oxygen: Room air at rest lying on the litter. PHYSICAL EXAM Physical Exam Vitals and nursing note reviewed. Constitutional: General: He is not in acute distress. Appearance: He is well-developed. Comments: Patient is sitting upright on the litter with no oxygen in place. HENT: Head: Normocephalic. Mouth/Throat: Mouth: Mucous membranes are moist. Neck: Vascular: No JVD. Cardiovascular: Rate and Rhythm: Normal rate. Rhythm irregular. Heart sounds: Murmur heard. Comments: Pt in chronic a-fib. Pulmonary: Effort: Pulmonary effort is normal. Breath sounds: Examination of the right-lower field reveals decreased breath sounds and rhonchi. Examination of the left-lower field reveals decreased breath sounds and rhonchi. Decreased breath sounds and rhonchi present. Comments: Speaking in full sentences. No respiratory distress observed. Chest: Chest wall: No tenderness. Abdominal: General: Bowel sounds are normal. Palpations: Abdomen is soft. Tenderness: There is no abdominal tenderness. Musculoskeletal: Cervical back: Normal range of motion and neck supple. Right lower leg: No edema. Left lower leg: No edema. Lymphadenopathy: Cervical: No cervical adenopathy. Skin: General: Skin is warm and dry. Capillary Refill: Capillary refill takes less than 2 seconds. Neurological: Mental Status: He is alert and oriented to person, place, and time. Psychiatric: Mood and Affect: Mood normal. Behavior: Behavior normal. DIAGNOSTIC RESULTS Based on the patient's history and physical exam the following labs and radiology studies were ordered in order to evaluate, work-up and determine best course of treatment for the patient. The studies are independently interpreted by me as follow here or in the MDM section or ED course section: Labs Reviewed COMPREHENSIVE METABOLIC PANEL TROPONIN I HIGH SENSITIVITY B-TYPE NATRIURETIC PEPTIDE CBC AND DIFFERENTIAL Narrative: The following orders were created for panel order CBC and differential. Procedure Abnormality Status --------- ------ CBC auto differential[[id number]] Please view results for these tests on the individual orders. CBC WITH AUTO DIFFERENTIAL XR Chest 2 Views (Results Pending) I personally reviewed the patient's images and agree with radiologist interpretation unless otherwise noted here or in ED course or MDM section Encounter Date: 06/25/25 ECG 12 lead Result Value Ventricular Rate ECG 70 Atrial Rate 127 QRS Duration 134 Q-T Interval 472 QTc 509 R [place] -122 T [place] 134 ECG Interpretation Ventricular-paced rhythm Biventricular pacemaker detected Abnormal ECG When compared with ECG of 29-MAY-2025 07:51, Vent. rate has decreased BY 2 BPM Confirmed by Jose UMANA JAMES ([id number]) on 06/25/2025 4:13:45 PM *Note: Due to a large number of results and/or encounters for the requested time period, some results have not been displayed. A complete set of results can be found in Results Review. If an EKG was performed on today's visit and is documented above or within the ED course section, Iindependently interpreted/read the EKG as noted above at the time of service as above in the ED course section. EMERGENCY DEPARTMENT COURSE and DIFFERENTIAL DIAGNOSIS/MDM: ED Course as of 07/01/25 1605 Sun Jul 01, 2025 1347 EKG with paced rhythm. [LB] 1429 WBC count has decreased since hospital discharge. CXR is unchanged. [LB] 1445 Blood glucose called back at 405. 15 units of subcu insulin ordered. Nurse rechecked fingerstick at bedside and was 376. Maintain order for 15 units of glucose and recheck blood sugar at 1 hour.[LB] 1514 BNP elevated, no peripheral edema, no pulmonary edema on chest x-ray. [LB] 1541 Called [facility] @ [phone]. Spoke to 11-07 Certified Histologic Technician who states that there are no messages regarding Mr. Rodrigues and there is no admissions people in the facility at this time. There is noway to get him admitted today. [LB] 1604 Spoke with the patient and his daughter at length. He is unwilling to be admitted to the hospital for an overnight in order to access the [facility] admissions team tomorrow morning. He and hisdaughter are in agreement that he can go home tonight. He has an appointment with the PCP on Wednesday, I have encouraged them to discuss his increased need for insulin on a sliding scale due to his use of prednisone, and his increased need for support at home. They may be able to request additional visiting nurses services. Were agreeable to the patient's discharge at this point in time. [LB] ED Course User Index [LB] Lianna Hoffmann NP Clinical Impressions as of 07/01/25 1605 Pneumonia due to infectious organism, unspecified laterality, unspecified part of lung Congestive heart failure, unspecified HF chronicity, unspecified heart failure type (CMS/HCC V24, CMS/[facility] V28) Hypoxia Shortness of breath Hyperglycemia Weakness Elevated brain natriuretic peptide (BNP) level History providers: Patient and family member Patient presents with a chronic problem with: Progression of underlying disease, Severe exacerbation, and Threat to life, bodily/organ/limb function Care discussed with: Nursing staff here Social determinants of health that significantly limited prognosis, diagnosis and/or treatment: poor physical or mental health Lives alone medicare/medicaid which limits access to primary care and specialists Tobacco use Differential diagnosis: Exacerbation of COPD Worsening Pneumonia Dyspnea on Exhertion Hypoxia on Exhertion Failed discharge from Rehab Facility Visit to establish medical need to readmit to [facility] Risk factors to consider in determining the patient's fitness for procedures and or prognosis related to current illness include: Lack of excercise, Sedentary lifestyle, HTN, DM, HLD, Smoking, Recent antibiotic use, CKD, and COPD Labs: Ordered, Reviewed, and Interpreted Radiology: Ordered and Reviewed External data reviewed and/or prior visits reviewed: Prior visits for Sepsis, Hypoxemia Notes, Labs, Radiology, and EKG Treatment and interventions considered or used: Medications: Considered but not ordered Admission Considerations: Decision made regarding hospitalization and Considered but ultimately not admitted. Did not want payton admitted to the hospital. Based on the above history and exam as well as the results as listed the following medications and/or treatments were ordered in order to treat and stabilize the patient's condition: Medications - No data to display REASSESSMENT Stable/improved CONSULTS: None The patient ultiumately did not warrant hospitalization nor any acute surgical interventions beyondany procedures performed here and documented above. That said, I considered the need for both admission and additional surgical procedures. Also considered the need to obtain additional imaging and/or labs beyond what may have been ordered but no additional testing was indicated based on the patient's condition and results of any other testing that may have been performed. Any medications given here and/or prescribed for discharge are documented within the other portionsof the note. After any medications or treatments that may have been provided here the patient was improved and symptoms had resolved or become tolerable or no medications or treatments were indicated based on thepatient's condition. The patient was deemed stable safe and appropriate for discharge to home and is instructed to follow-up with his primary care doctor and return for any new or worsening symptoms. DISPOSITION/PLAN Discharge 07/01/2025 04:02:58 PM The following medications were prescribed in order to continue the patient's treatment as an outpatient: Your medication list ASK your doctor about these medications Instructions Last Dose Given Next Dose Due aspirin 81 mg chewable tablet Chew 1 tablet (81 mg total) 1 (one) time each day. atorvastatin 80 mg tablet Commonly known as: LIPITOR Take 1 tablet (80 mg total) by mouth every other day. NIGHTLY carvediloL 3.125 mg tablet Commonly known as: COREG Take 1 tablet (3.125 mg total) by mouth 2 (two) times a day with meals. cefdinir 300 mg capsule Commonly known as: OMNICEF Ask about: Should I take this medication? Take 1 capsule (300 mg total) by mouth 2 (two) times a day for 2 days. doxycycline 100 mg capsule Commonly known as: VIBRAMYCIN Ask about: Should I take this medication? Take 1 capsule (100 mg total) by mouth 2 (two) times a day for 2 days. Take with at least 8 ounces (large glass) of water, do not lie down for 30 minutes after. Administer 2 hours before or after multivitamins, antacids, or other products containing polyvalent cations (i.e., calcium, iron, magnesium, selenium, zinc). ferrous sulfate 325 mg (65 mg iron) EC tablet Take 1 tablet (325 mg total) by mouth 2 (two) times a day with meals. 0800 + 1700 FLUoxetine 40 mg capsule Commonly known as: PROzac Take 1 capsule (40 mg total) by mouth 1 (one) time each day. gabapentin 100 mg capsule Commonly known as: NEURONTIN Take 2 capsules (200 mg total) by mouth at bedtime. ipratropium-albuteroL 0.5-2.5 mg/3 mL nebulizer solution Commonly known as: DUONEB Take 3 mL by nebulization every 6 (six) hours if needed for wheezing. isosorbide mononitrate 30 mg 24 hr tablet Commonly known as: IMDUR Take 1 tablet (30 mg total) by mouth 1 (one) time each day. Do not crush or chew. metFORMIN XR 500 mg 24 hr tablet Commonly known as: GLUCOPHAGE-XR Take 1 tablet (500 mg total) by mouth 1 (one) time each day. metFORMIN 1,000 mg 24 hr tablet Commonly known as: FORTAMET Take 1 tablet (1,000 mg total) by mouth 1 (one) time each day with dinner. Do not crush, chew, or split. MULTIPLE VITAMINS ORAL Take 1 tablet by mouth daily. NON FORMULARY VITAMIN C predniSONE 10 mg tablet Commonly known as: DELTASONE Start taking on: June 28, 2025 Take 3 tablets (30 mg total) by mouth 1 (one) time each day for 2 days, THEN 2 tablets (20 mg total) 1 (one) time each day for 2 days, THEN 1 tablet (10 mg total) 1 (one) time each day for 2 days, THEN 0.5 tablets (5 mg total) 1 (one) time each day for 2 days. TAKE 4 TABLETS BY MOUTH ONCE DAILY FOR3 DAYS, THEN TAKE 3 TABLETS BY MOUTH ONCE DAILY FOR 3 DAYS, THEN TAKE 2 TABLETS BY MOUTH ONCE DAILYFOR 3 DAYS, THEN TAKE 1 TABLET BY MOUTH ONCE DAILY FOR 3 DAYS. sacubitriL-valsartan 24-26 mg per tablet Commonly known as: ENTRESTO Take 1 tablet by mouth twice daily SITagliptin phosphate 25 mg tablet Commonly known as: JANUVIA Take 1 tablet (25 mg total) by mouth 1 (one) time each day. torsemide 40 mg tablet Take 40 mg by mouth 1 (one) time each day. traZODone 100 mg tablet Commonly known as: DESYREL Take 1 tablet (100 mg total) by mouth at bedtime. Trelegy Ellipta 200-62.5-25 mcg inhaler Generic drug: [id number] Inhale 1 puff (200 mcg total) by mouth 1 (one) time each day. Rinse mouth with water after use to reduce aftertaste and incidence of candidiasis. Do not swallow. vitamin B-1 250 mg tablet Take 1 tablet (250 mg total) by mouth 1 (one) time each day. FINAL IMPRESSION DIAGNOSES: 1. Pneumonia due to infectious organism, unspecified laterality, unspecified part of lung 2. Congestive heart failure, unspecified HF chronicity, unspecified heart failure type (CMS/[facility] V24, CMS/[facility] V28) 3. Hypoxia 4. Shortness of breath 5. Hyperglycemia 6. Weakness 7. Elevated brain natriuretic peptide (BNP) level The patient was discharged, all questions were answered and we engaged in shared decision-making with the plan, I stressed the importance of prompt follow-up to the patient and they were advised to follow-up and/or referrals placed as below: Junie Hand NP [address] [facility] [address] [facility] [address] [place] ADULT [facility] [phone] Go to Please keep your appointment on Wednesday with your PCP. [facility] Emergency [address] [facility] [phone] As needed, If symptoms worsen (Please note that portions of this note were completed with a voice recognition program. Quite often unanticipated grammatical, syntax, homophones, and other interpretive errors are inadvertently transcribed by the computer software. These should have been corrected during proofreading. If you haveany questions, please contact the author of this note for clarification.) Note to patient: It was a pleasure taking care of you today. The 21st Century Cures Act makes medical notes like this one available to patients in the interest of transparency. However, be advised that this is a medical document. It is intended as physician to physician communication. It is writtenin medical language and may contain abbreviations or verbiage that are unfamiliar. It may appear blunt or direct or even insulting if taken out of the clinical communication context. Medical documents are not meant to communicate to patients, they are intended to carry relevant information, facts as evident, and the clinical opinion of the practitioner. Lianna Hoffmann NP (electronically signed) 4:06 PM EST Lianna Hoffmann NP 07/01/25 0301 [1] Past Medical History: Diagnosis Date Atrial fibrillation ([facility]/HCC V24, [facility] V28) Congestive heart failure (CHF) ([facility] V24, [facility] V28) COPD (chronic obstructive pulmonary disease) (CMS/[facility] V24, [facility] V28) Coronary artery disease Depression Diabetes mellitus (CMS/HCC V24, [facility] V28) Hyperlipidemia Hypertension [2] Patient Active Problem List Diagnosis Anemia CAD (coronary artery disease) COPD (chronic obstructive pulmonary disease) ([facility] V24, [facility] V28) Dizziness Hiatal hernia Ischemic cardiomyopathy Neuropathy Paroxysmal A-fib ([facility] V24, [facility] V28) HTN (hypertension) Smoker HLD (hyperlipidemia) Acute hypoxic respiratory failure ([facility] V24, [facility] V28) [3] Past Surgical History: Procedure Laterality Date ABLATION Bilateral CARDIAC DEFIBRILLATOR PLACEMENT CORONARY ARTERY BYPASS GRAFT LEFT HEART CATH WATCHMAN IMPLANT [4] Family History Problem Relation Name Age of Onset Heart attack Father CABG Brother Heart attack Paternal Grandmother Lianna Hoffmann NP 07/01/25 7051 Cosigned by Jenni Vincent MD at 07/02/2025 4:25 PM EST documented in this encounter Plan of Treatment Upcoming Encounters Date Type Department Care Team (Late st Contact Info) Description 07/06/2025 9:40 AM EST Office Visit [facility] [address] [place] [phone] Marina Sandoval NP [address] [place] [address] [place] [id number] 07/10/2025 11:00 AM EST Ancillary Procedure [facility] [address] [place] [phone] 07/12/2025 10:20 AM EST Consult [facility] Cardiology [facility] [address] [place] [phone] Daphnie Calzada MD [address] [place] [address] Dr [address] [place] [phone] documented as of this encounter Procedures Procedure Name Priority Date/Time Associated Diagnosis Comments ECG ANNOTATED 07/03/2025 POCT GLUCOSE BLOOD Routine 07/01/2025 3: 35 PM EST POCT GLUCOSE BLOOD Routine 07/01/2025 2: 42 PM EST XR CHEST 2 VIEWS STAT 07/01/2025 1:53 PM EST ECG 12-LEAD STAT 07/01/2025 1:42 PM EST TROPONIN I HIGH SENSITIVITY STAT 07/01/2025 1:37 PM EST CBC WITH AUTO DIFFERENTIAL STAT 07/01/2025 1:37 PM EST CBC AND DIFFERENTIAL STAT 07/01/2025 1:37 PM EST B-TYPE NATRIURETIC PEPTIDE STAT 07/01/2025 1:37 PM EST COMPREHENSIVE METABOLIC PANEL STAT 07/01/2025 1:37 PM EST documented in this encounter Results * ECG-Annotated (07/03/2025) us Provider Onbase ECG ORDERABLES Final Result * (ABNORMAL) POCT Glucose, blood (07/01/2025 3:35 PM EST) [facility] Signature Glucose POCT 375(H) 70 - 100 mg/dL 07/01/2025 3:35 PM EST [facility] Blood Capillary blood specimen / Unknown 07/01/2025 3:35 PM EST 07/01/2025 3:36 PM EST Generic Provider Poct LAB POINT OF CARE TEST DOCKED DEVICE UNSOLICITED RESULTS Final Result Performing Organization Address [facility]/ZIP Co de Phone Number [facility] [address] [place] [address], [place] [phone] * (ABNORMAL) POCT Glucose, blood (07/01/2025 2:42 PM EST) Glucose POCT 374(H) 70 - 100 mg/dL 07/01/2025 2:43 PM EST [facility] Blood Capillary blood specimen / Unknown 07/01/2025 2:42 PM EST 07/01/2025 2:44 PM EST [facility] Provider Poct LAB POINT OF CARE TEST DOCKED DEVICE UNSOLICITED RESULTS Final Result Performing Organization Address [facility]/ZIP Co de Phone Number [facility] [address] [place] [address], [place] [phone] * XR Chest 2 Views (07/01/2025 1:53 PM EST) Anatomical Region Laterality Modality Body Radiographic Sherrill ging 07/01/2025 2:13 PM EST Impressions 07/01/2025 2:15 PM EST Previous cardiac surgery with left atrial appendage clipping. I suspect underlying chronic lung disease. There are pleural and parenchymal opacities in the lower chest. The lung disease at the right base is not significantly changed -------- FINAL REPORT -------- Dictated By: Eladio Gan Dictated Date: 07/01/2025 14:13 ET Assigned Physician: Eladio Gan Reviewed and Electronically Signed By: Eladio Gan Signed Date: 07/01/2025 14:15 ET Workstation ID: [id number] Transcribed By: Self Edit Transcribed Date: 07/01/2025 14:13 ET Narrative 07/01/2025 2:15 PM EST EXAMINATION: CHEST CLINICAL INFORMATION: Cough. Recent pneumonia COMPARISON: Frontal view 06/25/25 TECHNIQUE: 2 views of the chest FINDINGS: Mild rotation to the right. Power generator left chest with leads projecting in the region of the right ventricle and likely the coronary sinus. Previous left atrial appendage clipping. No interval widening of the mediastinum. The left hilum is obscured. No change in the right hilum. There is no alveolar edema. There are pleural and linear parenchymal abnormalities in the lower lung zones with blunting of the costophrenic sulci. There is probably no change in the right base opacity. There is no definite pneumothorax Soft tissue calcification around the right humeral head. Procedure Note Eladio Gan MD - 07/01/2025 EXAMINATION: CHEST CLINICAL INFORMATION: Cough. Recent pneumonia COMPARISON: Frontal view 06/25/25 TECHNIQUE: 2 views of the chest FINDINGS: Mild rotation to the right. Power generator left chest with leads projecting in the region of theright ventricle and likely the coronary sinus. Previous left atrial appendage clipping. No interval widening of the mediastinum. The left hilum is obscured. Nochange in the right hilum. There is no alveolar edema. There are pleural and linear parenchymal abnormalities in the lower lungzones with blunting of the costophrenic sulci. There is probably no changein the right base opacity. There is no definite pneumothorax Soft tissue calcification around the right humeral head. IMPRESSION: Previous cardiac surgery with left atrial appendage clipping. I suspect underlying chronic lung disease. There are pleural andparenchymal opacities in the lower chest. The lung disease at the rightbase is not significantly changed -------- FINAL REPORT -------- Dictated By: Eladio Gan Dictated Date: 07/01/2025 14:13 ET Assigned Physician: Eladio Gan Reviewed and Electronically Signed By: Eladio Gan Signed Date: 07/01/2025 14:15 ET Workstation ID: [id number] Transcribed By: Self Edit Transcribed Date: 07/01/2025 14:13 ET Lianna Hoffmann PLUGMAN IMG XR PROCEDURES Final R esult * 12-Lead ECG (07/01/2025 1:42 PM EST) Ventricular Rate ECG 70 BPM GEMUSE Atrial Rate 394 BPM GEMUSE QRS Duration 138 ms GEMUSE Q-T Interval 456 ms GEMUSE QTc 492 ms GEMUSE R [place] -130 degrees GEMUSE T [place] 80 degrees GEMUSE ECG Interpretation Biventricular pacemaker detected Atrial flutter and Ventricular-pace d rhythm Abnormal ECG When compared with ECG of 25-JUN-2025 11:43, No significant change was found Confirmed by DAPHNIE CALZADA ([id number]) on 07/01/2025 6:58:24 PM GEMUSE 07/01/2025 1:42 PM EST 07/01/2025 6:58 PM EST Lianna Hoffmann NP ECG ORDERABLES Final Res ult GEMUSE * (ABNORMAL) CBC auto differential (07/01/2025 1:37 PM EST) Pathologist [facility] WBC 14.1(H) 4.8 - 10.8 K/mcL LAB HEMETOLOGY METHOD 07/01/2025 2:13 PM [facility] RBC 3.10(L) 4.50 - 5.50 M/mcL LAB HEMETOLOGY METHOD 07/01/2025 2:13 PM [facility] Hemoglobin 10.1(L) 13.5 - 17.5 g/dL LAB HEMETOLOGY METHOD 07/01/2025 2:13 PM [facility] Hematocrit 30.6(L) 42.0 - 54.0 % LAB HEMETOLOGY METHOD 07/01/2025 2:13 PM [facility] MCV 98.4(H) 79.0 - 98.0 FL LAB HEMETOLOGY METHOD 07/01/2025 2:13 PM [facility] MCH 32.5(H) 27.0 - 32.0 pcg LAB HEMETOLOGY METHOD 07/01/2025 2:13 PM [facility] MCHC 33.0 32.0 - 37.0 g/dL LAB HEMETOLOGY METHOD 07/01/2025 2:13 PM [facility] RDW 14.2 11.0 - 15.0 % LAB HEMETOLOGY METHOD 07/01/2025 2:13 PM [facility] Platelets 212 130 - 400 K/mcL LAB HEMETOLOGY METHOD 07/01/2025 2:13 PM [facility] MPV 11.0 7.0 - 11.0 FL LAB HEMETOLOGY METHOD 07/01/2025 2:13 PM [facility] NRBC 0.0 <1.0 % LAB HEMETOLOGY METHOD 07/01/2025 2:13 PM [facility] NRBC Absolute 0.00 <0.10 K/mcL LAB HEMETOLOGY METHOD 07/01/2025 2:13 PM [facility] Neutrophils Relative 91.0 % LAB HEMETOLOGY METHOD 07/01/2025 2:13 PM [facility] Lymphocytes Relative 2.0 % LAB HEMETOLOGY METHOD 07/01/2025 2:13 PM [facility] Monocytes Relative 4.1 % LAB HEMETOLOGY METHOD 07/01/2025 2:13 PM [facility] Eosinophils Relative 0.1 % LAB HEMETOLOGY METHOD 07/01/2025 2:13 PM [facility] Basophils Relative 0.2 % LAB HEMETOLOGY METHOD 07/01/2025 2:13 PM [facility] Immature Granulocytes Relative 2.6 % LAB HEMETOLOGY METHOD 07/01/2025 2:13 PM [facility] Neutrophils Absolute 12.80(H) 1.50 - 7.00 K/mcL LAB HEMETOLOGY METHOD 07/01/2025 2:13 PM EST [facility] Lymphocytes Absolute 0.28(L) 1.00 - 5.00 K/[facility] LAB HEMETOLOGY METHOD 07/01/2025 2:13 PM EST [facility] Monocytes Absolute 0.58 0.20 - 1.00 K/[facility] LAB HEMETOLOGY METHOD 07/01/2025 2:13 PM EST [facility] Eosinophils Absolute 0.01 0.00 - 0.50 K/[facility] LAB HEMETOLOGY METHOD 07/01/2025 2:13 PM EST [facility] Basophils Absolute 0.03 0.00 - 0.20 K/[facility] HEMETOLOGY METHOD 07/01/2025 2:13 PM EST [facility] Immature Granulocytes Absolute 0.37(H) 0.00 - 0.03 K/[facility] LAB HEMETOLOGY METHOD 07/01/2025 2:13 PM EST [facility] Blood Venous blood specimen / Unknown Venipuncture / Unknown 07/01/2025 1:37 PM EST 07/01/2025 2:05 PM EST us Lianna Hoffmann PLUGMAN LAB BLOOD ORDERABLES Bette l Result [facility] [address] [place] [address], * (ABNORMAL) B-Type Natriuretic Peptide (BNP) (07/01/2025 1:37 PM EST) BNP 608(H) <=100 pcg/mL LAB CHEMISTRY METHOD 07/01/2025 2:42 PM EST [facility] Blood Venous blood specimen / Unknown Venipuncture / Unknown 07/01/2025 1:37 PM EST 07/01/2025 2:05 PM EST us Lianna Hoffmann PLUGMAN LAB BLOOD ORDERABLES Bette l Result Performing Organization Address [facility]/ZIP Co de Phone Number [facility] [address] [place] [address], [place] [phone] * Troponin I High Sensitivity (07/01/2025 1:37 PM EST) [facility] High Sensitivity Troponin I 73 <=79 ng/L LAB CHEMISTRY METHOD 07/01/2025 2:31 PM EST [facility] Blood Venous blood specimen / Unknown Venipuncture / Unknown 07/01/2025 1:37 PM EST 07/01/2025 2:05 PM EST Narrative [facility] - 07/01/2025 2:31 PM EST High levels of biotin in samples may falsely decrease hsTroponin values. Use caution when interpreting hsTroponin results in patients taking biotin who exhibit renal impairment (eGFR <60) or in patients taking more than 20 mg/day of biotin. Lianna Hoffmann PLUGMAN LAB BLOOD ORDERABLES Bette l Result Performing Organization Address [facility] Co de Phone Number [facility] [address] [place] [address], [place] [phone] * (ABNORMAL) Comprehensive Metabolic Panel (CMP) (07/01/2025 1:37 PM EST) [facility] Sodium 133 133 - 145 mmol/L LAB CHEMISTRY METHOD 07/01/2025 2:36 PM EST [facility] Potassium 5.2 3.5 - 5.5 mmol/L LAB CHEMISTRY METHOD 07/01/2025 2:36 PM [facility] Comment:Hemolysis present Chloride 102 96 - 110 mmol/L LAB CHEMISTRY METHOD 07/01/2025 2:36 PM [facility] CO2 25 21 - 32 mmol/L LAB CHEMISTRY METHOD 07/01/2025 2:36 PM [facility] Anion Gap 6 3 - 11 LAB CHEMISTRY METHOD 07/01/2025 2:36 PM [facility] Glucose 405(HH) 70 - 100 mg/dL LAB CHEMISTRY METHOD 07/01/2025 2:36 PM [facility] BUN 46(H) 5 - 25 mg/dL LAB CHEMISTRY METHOD 07/01/2025 2:36 PM [facility] Creatinine 1.28 0.70 - 1.30 mg/dL LAB CHEMISTRY METHOD 07/01/2025 2:36 PM [facility] eGFR 59(L) >=60 mL/min/1. 73m2 LAB CHEMISTRY METHOD 07/01/2025 2:36 PM [facility] Comment:Calculation based on the Chronic Kidney Disease Epidemiology Collaboration (CKD-EPI) equation refit without adjustment for race. BUN/Creatinine Ratio 35.9 LAB CHEMISTRY METHOD 07/01/2025 2:36 PM [facility] Calcium 9.2 8.5 - 10.5 mg/dL LAB CHEMISTRY METHOD 07/01/2025 2:36 PM [facility] AST (SGOT) 28 10 - 42 unit/L LAB CHEMISTRY METHOD 07/01/2025 2:36 PM [facility] Comment:Hemolysis present ALT (SGPT) 63(H) 10 - 60 unit/L LAB CHEMISTRY METHOD 07/01/2025 2:36 PM [facility] Alkaline Phosphatase 101 42 - 121 unit/L LAB CHEMISTRY METHOD 07/01/2025 2:36 PM [facility] Total Protein 6.0 6.0 - 8.0 g/dL LAB CHEMISTRY METHOD 07/01/2025 2:36 PM [facility] Albumin 2.9(L) 3.2 - 5.0 g/dL LAB CHEMISTRY METHOD 07/01/2025 2:36 PM [facility] Total Bilirubin 1.1 0.0 - 1.4 mg/dL LAB CHEMISTRY METHOD 07/01/2025 2:36 PM EST [facility] Blood Venous blood specimen / Unknown Venipuncture / Unknown 07/01/2025 1:37 PM EST 07/01/2025 2:05 PM EST us Lianna Hoffmann NP LAB BLOOD ORDERABLES Bette garcia Result [facility] [address] [place] [address], documented in this encounter Visit Diagnoses Diagnosis Pneumonia due to infectious organism, unspecified laterality, unspecified part of lung- Primary Congestive heart failure, unspecified HF chronicity, unspecified heart failure type (CMS/HCC V24, CMS/HCC V28) Hypoxia Hypoxemia Shortness of breath Hyperglycemia Other abnormal glucose Weakness Other malaise and fatigue Elevated brain natriuretic peptide (BNP) level Encounter for adjustment or management of cardiac device documented in this encounter Administered Medications Inactive Administered Medications - up to 3 most recent administrations Medication Order MAR Action Action Date Dose Rate Site insulin regular (HumuLIN R) injection 15 Units 15 Units, subcutaneous, Once, On 07/01/25 at 1439, For 1 dose Given 07/01/2025 2:49 PM EST 15 Units Left Upper Arm (Back) documented in this encounter Active and Recently Administered Medications Due to Daylight Saving Time, this section may contain times in both EDT and EST. Scheduled Medication Order 06/29/2025 06/30/2025 07/01/2025 insulin regular (HumuLIN R) injection 15 Units (COMPLETED) 15 Units, subcutaneous, Once, On 07/01/25 at 1439, For 1 dose 1449 (Given - Provid er: Dominique Harden RN) documented in this encounter Orders Medications Ordered That Vlad ht Not Have Been Administered Count Last Ordered Date First Ordered Date insulin regular (HumuLIN R) injection 15 Units 1 07/01/2025 Nursing Count Last Ordered Date First Orde red Date PULSE OXIMETRY 1 07/01/2025 documented in this encounter Care Teams Binder Operator Relationship Specialty Start Date End Date Junie Hand NP [address] [facility] [place] [place] [address] PCP - General 09/29/22 documented as of this encounter
--- NOTE | 2025-07-04 10:59 | MHC.OFFVIS ---
Vital Signs 07/04/25 11:06 Height 5 ft 8 in Weight 126 lb 4 oz BMI 19.2 BP 82/38 L Blood Pressure Location Rt brachial Position Sitting Pulse 75 Pulse Source Pulse Oximeter Pulse Oximetry (%) 92 Oxygen Delivery Method Nasal Cannula Oxygen Flow Rate 3 Intake Visit Reasons: COPD/ HOSP [facility] Allergies No Known Allergies Allergy (Verified 07/04/25 11:10) HPI HPI COPD/ HOS[facility]: Details: Errol is a pleasant 70-year-old male, current 50+ year smoker with underlying COPD, coronary artery disease status post CABG x4, atrial fibrillation, hypertension, hyperlipidemia and heart failure with preserved EF. Today he is accompanied by his daughter. At baseline he reports moderate control with Trelegy and DuoNeb BID however has been admitted to [facility] for pneumonia with sepsis. The pneumonia was diagnosed on June 25, and the patient was hospitalized for treatment, receiving IV antibiotics and steroids. Records not available to review. The patient was discharged without insulin despite hyperglycemia, which was exacerbated by prednisone use. The patient has a history of hyperglycemia, with blood sugar levels exceeding 400 mg/dL, attributed to prednisone use. The patient was initially on metformin and Januvia, which were ineffective in controlling blood sugar levels. Insulin was prescribed by the primary care physician, but there was a delay in obtaining it due to pharmacy hours. He was able to start Insulin today and will be following up with PCP for further management. He completed 3 day course of antibiotics upon discharge and will be completing predisone in three days. He continues to report productive cough with yellow sputum, chest congestion, wheezing and significant dyspnea. He also received supplemental oxygen using 2L with exertion to maintain oxygen saturation >92% which he received yesterday prescribed upon discharge. DME is [facility]. The patient has a history of nicotine dependence and is currently using a 21 mg nicotine patch to aid in smoking cessation. The patient has been on the patch for a week and plans to continue for at least three weeks before considering a lower dose. The patient has hypertension and is on carvedilol, isosorbide, and torsemide. Although blood pressure has been low, with recent readings at 88/36 mmHg, prompting a recommendation to consult cardiology today before his appt on Wednesday. The patient has valve stenosis, identified through echo and is scheduled to see a specialist for further evaluation. [facility] Medical History (Updated 07/04/25 @ 12:56 by Shannon Rosales NP) Diabetes mellitus Social History (Updated 07/04/25 @ 11:10 by Sherry Peace CMA) Patient Tobacco Use Status: Former Tobacco user Review of Systems Const Denies chills, Denies excessive sweating, Denies fever(s), Denies headache(s) and Denies night sweats Eyes Denies dry eyes, Denies irritation and Denies itchy eyes ENT Reports Normal hearing present, Denies headache(s), Denies nasal congestion, Denies nasal discharge, Denies post nasal drip and Denies sore throat Card Denies chest pain, Denies chest pain at rest, Denies chest pain with activity, Denies claudication, Denies leg edema, Denies dyspnea, Reports dyspnea on exertion, Denies orthopnea and Denies paroxysmal nocturnal dyspnea Resp Reports change in phlegm color, Reports chest congestion, Reports cough, Denies excessive phlegm production, Denies pain on inspiration, Denies pain with cough, Denies dyspnea, Reports dyspnea on exertion, Denies stridor and Reports wheezing Musc Denies myalgias Neuro Reports Normal hearing present and Denies headache(s) Endo Denies excessive sweating Ezekiel/Lymph Denies lymphadenopathy Aller/Immun Denies itchy eyes, Denies seasonal rhinorrhea and Reports wheezing Physical Exam Vital Signs: Last Vital Signs Pulse 75 07/04/25 11:06 BP 82/38 L 07/04/25 11:06 Pulse Ox 92 07/04/25 11:06 Oxygen Delivery Method Nasal Cannula 07/04/25 11:06 Oxygen Flow Rate 3 07/04/25 11:06 BMI result Body Mass Index 19.2 Const General: cooperative, comfortable, no acute distress, alert and tired appearing Nutritional Appearance: thin Orientation/consciousness: patient oriented x3 Limitations: ambulation with cane HEENT Head: Yes normal to inspection, Yes normocephalic and Yes atraumatic Ears: hearing grossly normal bilaterally and external ears normal Eyes General: appearance normal, both eyes and all related structures Eyelids: Yes eyelids normal Sclerae: sclerae normal EOM: EOMs intact bilaterally Neck Neck: Yes normal visual inspection and Yes no lymphadenopathy Lymphatic: no lymphadenopathy noted Chest Chest palpation & inspection: normal inspection of the chest Resp Effort & Inspection: normal respiratory effort, able to speak in complete sentences, no audible wheezes, no cough, no stridor, not tachypneic, no tripod positioning and no use of accessory muscles Auscultation: crackles on the right in the lower lung petesron and diminished lung sounds Cardio Jugular venous distension: no JVD Rate: regular rate Rhythm: regular rhythm Skin Other: warm, dry General skin exam: no rashes or lesions noted Neuro General: patient oriented x3 Cranial nerves: Yes Normal hearing present Cognition (Neuro): normal cognition Extrem General: Yes normal to inspection, Yes capillary refill normal, Yes no clubbing, cyanosis or edema and Yes no pedal edema Psych Appearance: grossly normal and well kempt Speech and movement: Normal speech and movement present and Clear speech present Affect: normal affect Attitude: cooperative Thought process: Normal thought process present Thought content: Normal thought content present Insight: Good insight present (Psych) Judgement: Good judgement present (Psych) Assessment & Plan Assessment & Plan (1) COPD (chronic obstructive pulmonary disease): Code(s): J44.9 - Chronic obstructive pulmonary disease, unspecified Category: Medical (2) Nicotine dependence, cigarettes, uncomplicated: Code(s): F17.210 - Nicotine dependence, cigarettes, uncomplicated Category: Medical (3) Pulmonary nodule: Code(s): R91.1 - Solitary pulmonary nodule Category: Medical (4) Pleural effusion: Code(s): J90 - Pleural effusion, not elsewhere classified Category: Medical (5) Pleural thickening: Code(s): J92.9 - Pleural plaque without asbestos Category: Medical Plan Patient continues with significant bronchitic symptoms and RLL inspiratory crackles, will treat for bronchopneumonia with cefpodoxime. He is aware to call if symptoms do not improve or seek emergent care if symptoms worsen. Will obtain report from admission and send patient for a CXR now to compare improvements/progression of recent PNA. The patient is advised to continue using Trelegy, nebulizer treatments, and a flutter valve to manage COPD symptoms. An overnight oxygen test is planned to evaluate oxygen needs during sleep, to be performed on room air. Advised to maintain oxygen saturation >92%, 2L with exertion and NOC. Chest CT 01/2025 revealed small pleural effusion, pleural thickening and pulmonary nodule largest 6mm. Reviewed chest CT 05/2025 which revealed mild to moderate emphysematous changes, small right pleural effusion and trace left pleural effusion, however recently switched diuretics per cardiology recommendations. There was also LLL scarring demonstrated however compared to prior chest CT in January 2025, appears to have a nodular density measuring approximately 1 cm. Given ongoing weight loss and significant smoking history, PET was ordered which is scheduled in two weeks. Discussed importance of pushing this order out at least another 2-4 weeks given recent PNA and continued symptoms which patient's daughter apprehensive. Reviewed the likelihood of false positive results given infectious process. Daughter agreeable to call [facility]. Smoking cessation reviewed and patient working towards quitting with the use of NRT. The patient was encouraged to consult cardiology regarding low blood pressure prior to appt on Wednesday. Reviewed importance of adequate fluid intake. All questions were answered and patient is in agreement of plan. Will follow up in 4 weeks or sooner if needed. Orders: Orders XR chest 2V Today Z87.01 - Personal history of pneumonia (recurrent) Medications: New cefpodoxime must administer with a meal/food 200 mg PO BID 20 tabs 0RF Coding Level of Care Code Est Pt Level 5 (18726) Complex EM visit Add On G2211 Diagnoses COPD (chronic obstructive pulmonary disease) J44.9 Nicotine dependence, cigarettes, uncomplicated F17.210 Pulmonary nodule R91.1 Pleural effusion J90 Pleural thickening J92.9 Time Spent (min) 45
[2025-07-04 11:06] VITALS: BP 82/38; PULSE 75; O2SAT 92; BMI 19.2
--- OUTSIDE RECORDS SUMMARY | 2025-07-04 13:01 | XMS_ITS | Encounter Summary ---
Author Organization [facility] Address [address] [place] [address] Care Team Providers Care Supervisor Shuttle Veneering Name Role Phone Junie Hand NP Primary Care Provider [phone] Encounter Details Date Type Department Care Team (Late st Contact Info) Description 06/28/2025 Telephone [facility] [address] [place] [address] Alfie Wagner MD [address] [place] [address] [address] [place] [address] Social History Tobacco Use Types Packs/Day Years [...] care for your loved ones. For example, childhood teacher or elderly care for an older adult? [...] as of this encounter Progress Notes * Valencia Moran - 06/29/2025 4:07 PM EDT Hospital follow up appointment scheduled with Marina Sandoval on Wednesday at 9:40 AM. TAVR talk scheduled with Dr Reyna on Sunday August 03, 2025 at 11:20 AM. I spoke with patients daughter Margoth who requested both appointments be on a Wednesday. Appointment reminders mailed. * Alfie Wagner MD - 06/28/2025 6:42 PM EDT 1. Please schedule this patient for a TAVR evaluation in our office with Dr. Anderson or Dr. Reyna. Diagnosis: Aortic valve stenosis. 2. Please schedule the patient for a posthospital follow-up appointment with Marina or Dr. Delarosa in2-3 weeks. documented in this encounter Plan of Treatment Upcoming Encounters Date Type Department Care Team (Late st Contact Info) Description 07/06/2025 9:40 AM EST Office Visit [facility] Cardiology [facility] [address] [address] [place] [address] Marina Sandoval NP [address] [place] [address] [address] [place] [address] 07/10/2025 11:00 AM EST Ancillary Procedure [facility] [address] [place] [address] 07/12/2025 10:20 AM EST Consult [facility] [address] [place] [address] [address] [place] [address] Daphnie Reyna MD [address] [place] [address] [address] [place] [address] documented as of this encounter Visit Diagnoses Not on filedocumented in this encounter Care Teams Supervisor Shuttle Veneering Relationship Specialty Start Date End Date Junie Hand NP [address] [facility] [place] [id number] PCP - General 09/29/22 documented as of this encounter
--- OUTSIDE RECORDS SUMMARY | 2025-07-04 13:01 | XMS_ITS | Clinical Summary ---
Author Organization [facility] Address [address] [place] [address] Care Team Providers Care Favor Maker Name Role Phone Jenae Hahn MD Primary [...] MINI PEN NEEDLES 31G X 5 MM [facility] [place] USE 1 PEN NEEDLE TO INJECT INSULIN [...] age to complete this topic Care Teams Favor Maker Relationship Specialty Start Date End Date Jenae Hahn MD [address] [place], [place] PCP - General Pulmonary Disease 09/23/21
--- OUTSIDE RECORDS SUMMARY | 2025-07-04 13:01 | XMS_ITS | Patient Health Record ---
Author Organization [facility] Guido kelley [place] Address [address] [facility] [place] [address] Care Team Providers Care Link Assembler Name Role Phone Yazan, Junie Primary Care Provider UnavailJulissa Grace Unavailable [phone] Jorge Huddleston Unavailable [phone] Allergies No Known Allergies Reason For Referral [...] Polyneuropathy due to type 2 diabetes mellitus (306151533) Type 2 diabetes mellitus with diabetic polyneuropathy (E11.42) Active confirmed Vital Signs Height 5ft 8in in 01/16/2025 Weight 128 lbs 01/16/2025 BMI 19.46 kg/m2 01/16/2025 Procedures Procedure Date Ordered Date Performed Result Body Sit e [id number] NAIL, 6 OR MORE 01/16/2025 N/A Encounters Encounter Location Date Provider Diagnosis [facility] [address] [address] 01/16/2025 Julissa Ellison Tinea unguium B35.1 ; [...] Treatment Pending Test Test Name Order Date [id number] NAIL, 6 OR MORE 01/16/2025 [id number] SKIN LESIONS, OVER 4 01/02/20 23 [id number] SKIN LESIONS, 2 TO 4 01/03/20 22 [id number] DYSTROPHIC NAILS ANY # Next Appt Details Provider Name:Julissa schmitt, 01/15/2026 11:00:00 AM, [address], [place], [address], Insurance Providers Payer Name Payer Address Payer Phone Subscriber Number Group Number Insured Name Patient Relationship to Insured Coverage Start Date Coverage End Date [employer] [place] [employer] [address] [place] [address] [id number] Errol Rodrigues Self - patient is the [...]
--- OUTSIDE RECORDS SUMMARY | 2025-07-04 13:01 | XMS_ITS | Clinical Summary ---
Author Organization [address] [facility] Address [address] [place] [address] Phone Care Team Providers Care Clinical Support Tech Name Role Phone Junie Hand NP Primary Care Provider [phone] Allergies No known active allergies Medications aspirin 81 mg chewable tablet Chew 1 tablet (81 mg total) 1 (one) time each day. 022 Active atorvastatin (LIPITOR) 80 mg tablet Take 1 tablet (80 mg total) by mouth every other day. NIGHTLY Active FLUoxetine (PROzac) 40 mg capsule Take 1 capsule (40 mg total) by mouth 1 (one) time each day. Active gabapentin (NEURONTIN) 100 mg capsule Take 2 capsules (200 mg total) by mouth at bedtime. Active metFORMIN XR (GLUCOPHAGE-XR) 500 mg 24 hr tablet Take 1 tablet (500 mg total) by mouth 1 (one) time each day. Active multivitamin (MULTIPLE VITAMINS ORAL) Take 1 tablet by mouth daily. Active traZODone (DESYREL) 100 mg tablet Take 1 tablet (100 mg total) by mouth at bedtime. Active carvediloL (COREG) 3.125 mg tablet Take 1 tablet (3.125 mg total) by mouth 2 (two) times a day with meals. 180 each 3 024 2024 Active SITagliptin phosphate (JANUVIA) 25 mg tablet Take 1 tablet (25 mg total) by mouth 1 (one) time each day. Active ferrous sulfate 325 mg (65 mg iron) EC tablet Take 1 tablet (325 mg total) by mouth 2 (two) times a day with meals. 0800 + 1700 Active torsemide 40 mg tablet Take 40 mg by mouth 1 (one) time each day. 90 tablet 3 025 Active sacubitriL-valsar nuñez (ENTRESTO) 24-26 mg per tablet Take 1 tablet by mouth twice daily 60 tablet 6 025 Active fluticasone-umecl idinium-vilantero l (Trelegy Ellipta) 200-62.5-25 mcg inhaler Inhale 1 puff (200 mcg total) by mouth 1 (one) time each day. Rinse mouth with water after use to reduce aftertaste and incidence of candidiasis. Do not swallow. Active isosorbide mononitrate (IMDUR) 30 mg 24 hr tabletIndications :Coronary artery disease, unspecified vessel or lesion type, unspecified whether angina present, unspecified whether lovelock or transplanted heart,Ischemic cardiomyopathy Take 1 tablet (30 mg total) by mouth 1 (one) time each day. Do not crush or chew. 90 each 1 025 2025 Active ipratropium-albut Kat (DUONEB) 0.5-2.5 mg/3 mL nebulizer solution Take 3 mL by nebulization every 6 (six) hours if needed for wheezing. 025 Active metFORMIN (FORTAMET) 1,000 mg 24 hr tablet Take 1 tablet (1,000 mg total) by mouth 1 (one) time each day with dinner. Do not crush, chew, or split. Active Vitamin B-1 250 mg tablet Take 1 tablet (250 mg total) by mouth 1 (one) time each day. Active NON FORMULARY VITAMIN C Active predniSONE (DELTASONE) 10 mg tablet Take 3 [...] BY MOUTH ONCE DAILY FOR 3 DAYS. 025 2024 Active acetaminophen (TYLENOL) 500 mg tablet Take 1 Tab by mouth every 4 hours as needed. 2024 Discontinued(E ntered in Error) albuterol HFA (PROAIR HFA ; PROVENTIL HFA ; VENTOLIN HFA) 90 mcg/actuation inhaler Inhale 2 Puffs into the lungs every 4 hours as needed. 2024 Discontinued(E ntered in Error) budesonide-glycop yr-formoterol (Breztri Aerosphere) 160-9-4.8 mcg/actuation HFA aerosol inhaler inhaler Inhale into the lungs. 2024 Discontinued(E ntered in Error) insulin glargine (LANTUS SoloStar) 100 unit/mL (3 mL) injection pen Inject into the skin. 2024 Discontinued(E ntered in Error) tiotropium (SPIRIVA) 18 mcg per inhalation capsule Place 1 capsule (18 mcg total) into inhaler and inhale 1 (one) time each day. 2024 Discontinued(E ntered in Error) isosorbide mononitrate (IMDUR) 30 mg 24 hr tabletIndications :Coronary artery disease, unspecified vessel or lesion type, unspecified whether angina present, unspecified whether lovelock or transplanted heart,Ischemic cardiomyopathy Take 1 tablet (30 mg total) by mouth 1 (one) time each day. Do not crush or chew. 30 each 025 2024 Discontinued(R eorder) predniSONE (DELTASONE) 10 mg tablet TAKE 4 TABLETS BY MOUTH ONCE DAILY FOR 3 DAYS, THEN TAKE 3 TABLETS BY MOUTH ONCE DAILY FOR 3 DAYS, THEN TAKE 2 TABLETS BY MOUTH ONCE DAILY FOR 3 DAYS, THEN TAKE 1 TABLET BY MOUTH ONCE DAILY FOR 3 DAYS 025 2024 Discontinued cefdinir (OMNICEF) 300 mg capsule Take 1 capsule (300 mg total) by mouth 2 (two) times a day for 2 days. 025 2024 doxycycline (VIBRAMYCIN) 100 mg capsule Take 1 capsule (100 mg total) by mouth 2 (two) times a day for 2 days. Take with at least 8 ounces (large glass) of water, do not lie down for 30 minutes after. Administer 2 hours before or after multivitamins, antacids, or other products containing polyvalent cations (i.e., calcium, iron, magnesium, selenium, zinc). 025 2024 Hospital, Clinic, or Other Facility Administered Medication Ordered Dose Route Frequency Start Date End Date Status perflutren lipid microsphere (DEFINITY) 1.3 mL in sodium chloride 0.9% 8.7 mL injectionIndications :Coronary artery disease, unspecified vessel or lesion type, unspecified whether angina present, unspecified whether lovelock or transplanted heart,Ischemic cardiomyopathy 10 mL IV Once in imaging 10/26/2024 Discontinued Active Problems Problem Noted Date Diagnosed Date Acute hypoxic respiratory fa ilure ([facility] V24, [facility] V28) 06/25/2025 HLD (hyperlipidemia) 06/21/2024 Anemia 08/26/2021 CAD (coronary [...] Future COPD (chronic obstructive pu lmonary disease) ([facility] V24, [facility] V28) 04/23/2021 Assessment & Plan (05/29/2025 [...] myocardial perfusion; Future Neuropathy 04/23/2021 Paroxysmal A-fib ([facility] V24, [facility] V28) 03/31 Assessment & Plan (11/30/2024 10:58 [...] Encounters Date Type Department Care Team Description 07/01/2025 12:53 PM EST - 07/01/2025 4:13 PM EST Emergency Emergency [address] [place] [phone] Pneumonia due to infectious organism, unspecified laterality, unspecified part of lung (Primary Dx); Congestive heart failure, unspecified HF chronicity, unspecified heart failure type (CMS/HCC V24, CMS/HCC V28); Hypoxia; Shortness of breath; Hyperglycemia; Weakness; Elevated brain natriuretic peptide (BNP) level Discharge Disposition: Home or Self Care 06/28/2025 Telephone [facility] [address] [place] [address] Alfie Wagner MD 06/25/2025 11:20 AM EDT - 06/28/2025 4:00 PM EDT Hospital Encounter [facility] [address] [place] [phone] Ximena Aponte MD Kela, Kashyap Devendrabhai, MD Sepsis with acute hypoxic respiratory failure and septic shock, due to unspecified organism (CMS/HCC V24, CMS/HCC V28) (Primary Dx); Pneumonia of right lower lobe due to infectious organism; Acute hypoxic respiratory failure (CMS/HCC V24, CMS/HCC V28); Acute on chronic combined systolic and diastolic congestive heart failure (CMS/HCC V24, CMS/HCC V28) Discharge Disposition: Residential Facility 06/21/2025 8:25 PM EDT Ancillary Procedure [facility] - [address] [place] [address] 06/08/2025 Telephone [facility] [address] [place] [phone] Seth Bob MD 05/29/2025 7:40 AM EDT Office Visit [facility] - [address] [place] [phone] Marina Sandoval NP Shortness of breath (Primary Dx); Chronic obstructive pulmonary disease, unspecified COPD type (CMS/HCC V24, CMS/HCC V28); Coronary artery disease involving autologous artery coronary bypass graft without angina pectoris; Ischemic cardiomyopathy 05/28/2025 Telephone [facility] - [address] [place] [address] Jeffrey Delarosa MD 05/21/2025 Telephone [facility] - [address] [place] [phone] Rex Mckeon MA 05/18/2025 4:40 PM EDT Ancillary Procedure [facility] - [address] [place] [address] 05/11/2025 Telephone [facility] [address] [place] [phone] Provider, Not In System 05/11/2025 Telephone [facility] - [address] [place] [address] Marina Sandoval NP 05/02/2025 Telephone [facility] [address] [place] [address] Jeffrey Delarosa MD 04/20/2025 9:20 AM EDT Ancillary Procedure [facility] - [address] [place] [address] from Last 3 Months Surgical History Surgery Date Site/Laterality Comments CORONARY ARTERY BYPASS GRAFT LEFT HEART CATH WATCHMAN IMPLANT ABLATION Bilateral CARDIAC DEFIBRILLATOR PLACEMENT Medical History Medical History Date Comments COPD (chronic obstructive pulmonary disease) (CM S/HCC V24, [facility] V28) Diabetes mellitus ([facility] V24, [facility] V28) Coronary artery disease Congestive heart failure (CHF) ([facility] V24, [facility] V28) Atrial fibrillation ([facility] V24, [facility] V28) Hypertension Hyperlipidemia Depression Family History Medical History Relation Name Comments [...] care for your loved ones. For example, child support case officer or elderly care for an older adult? [...] Mass Index 19.04 07/01/2025 1:00 PM EST Plan of Treatment Upcoming Encounters Date Type Department Care Team (Late st Contact Info) Description 07/06/2025 9:40 AM EST Office Visit [facility] - [address] [place] [phone] Marina Sandoval NP [address] [place] [address] [address] [place] [phone] 07/10/2025 11:00 AM EST Ancillary Procedure [facility] - [facility] [address] [place] [phone] 07/12/2025 10:20 AM EST Consult [facility] [address] [place] [address] [address] [place] [phone] Daphnie Calzada MD [address] [place] [address] [address] [place] [phone] Health Maintenance Due Date Last Done Comments Colorectal Cancer Screening: Colonoscopy 1953 Diabetes: Annual Foot Exam 1963 Diabetes: Annual Retina Eye Exam 1965 Hepatitis A Vaccines (1 of 2 - Risk 2-dose series) 02/09/1972 Abdominal Aortic Aneurysm (AAA) Screen 08/07/2022 Cholesterol Screening (Lipid Panel) 08/07/2022 Hepatitis C Screening 08/07/2022 Lung Cancer Screening (Low Dose CT) 08/07/2022 Medicare Annual Wellness Visit 08/07/2022 Diabetes: Annual Urine Albumin-Creatinine Ratio (uACR) 08/30/2022 Depression Screening 08/30/2024 COVID-19 Vaccine ( season) 2025 06/04/2025, 05/05/2024, 06/04/2023, Additional history exists Diabetes: Blood Sugar Control Test (HGBA1C) 12/24/2025 06/25/2025 Social Influencers of Health Screening 06/25/2026 06/25/2025 Falls Risk Assessment 06/28/2026 06/28/2025 Diabetes: Annual GFR (Glomerular Filtration Rate) 07/01/2026 07/01/2025, 06/28/2025, 06/27/2025, Additional history exists Hypertension/CHF/CAD Annual BMP Blood Test 07/01/2026 07/01/2025, 06/28/2025, 06/27/2025, Additional history exists DTaP,Tdap,and Td Vaccines (2 [...] this topic Medical Devices Implanted Type [facility] Sales Device Identifier Shelf Expiration Date Model / Serial / Lot Cardiac Forepart Rasper-D Icd- 2 Implanted:05/2022 by Seth Bob MD (Quantity not on file) Cardiac CUSTOMER ENERGY SPECIALIST-D ICD Left: Chest MED[employer] - CARDIAC RHYTH-CRDM CLARIA QUAD [id number] / [id number] / Medt-Card Claria Mri Quad Crtd [id number] Implanted:05/2022 (Quantity not on file) Cardiac CUSTOMER ENERGY SPECIALIST-D ICD MEDTRONIC - CARDIAC RHYTH-CRDM CLARIA MRI QUAD CRTD [id number] / [id number] / Procedures Procedure Name Priority Date/Time Associated Diagnosis Comments ECG ANNOTATED 07/03/2025 POCT GLUCOSE BLOOD Routine 07/01/2025 3: 35 PM EST POCT GLUCOSE BLOOD Routine 07/01/2025 2: 42 PM EST XR CHEST 2 VIEWS STAT 07/01/2025 1:53 PM EST ECG 12-LEAD STAT 07/01/2025 1:42 PM EST CBC WITH AUTO DIFFERENTIAL STAT 07/01/2025 1:37 PM EST CBC AND DIFFERENTIAL STAT 07/01/2025 1:37 PM EST B-TYPE NATRIURETIC PEPTIDE STAT 07/01/2025 1:37 PM EST TROPONIN I HIGH SENSITIVITY STAT 07/01/2025 1:37 PM EST COMPREHENSIVE METABOLIC PANEL STAT 07/01/2025 1:37 PM EST POCT GLUCOSE BLOOD Routine 06/28/2025 10 :59 AM EDT POCT GLUCOSE BLOOD Routine 06/28/2025 7: 58 AM EDT MAGNESIUM Routine 06/28/2025 7:00 AM EDT BASIC METABOLIC PANEL Routine 06/28/2025 7:00 AM EDT COMPLETE BLOOD COUNT Routine 06/28/2025 7:00 AM EDT PHOSPHORUS Routine 06/28/2025 7:00 AM EDT POCT GLUCOSE BLOOD Routine 06/27/2025 10 :35 PM EDT POCT GLUCOSE BLOOD Routine 06/27/2025 4: 03 PM EDT POCT GLUCOSE BLOOD Routine 06/27/2025 11 :02 AM EDT POCT GLUCOSE BLOOD Routine 06/27/2025 9: 28 AM EDT POCT GLUCOSE BLOOD Routine 06/27/2025 8: 29 AM EDT POCT GLUCOSE BLOOD Routine 06/27/2025 7: 42 AM EDT POCT GLUCOSE BLOOD Routine 06/27/2025 7: 21 AM EDT MAGNESIUM Routine 06/27/2025 6:53 AM EDT BASIC METABOLIC PANEL Routine 06/27/2025 6:53 AM EDT COMPLETE BLOOD COUNT Routine 06/27/2025 6:53 AM EDT POCT GLUCOSE BLOOD Routine 06/26/2025 9: 13 PM EDT POCT GLUCOSE BLOOD Routine 06/26/2025 4: 15 PM EDT POCT GLUCOSE BLOOD Routine 06/26/2025 10 :56 AM EDT COMPLETE BLOOD COUNT Routine 06/26/2025 6:19 AM EDT BASIC METABOLIC PANEL Routine 06/26/2025 6:19 AM EDT POCT GLUCOSE BLOOD Routine 06/26/2025 3: 58 AM EDT ECG ANNOTATED 06/26/2025 POCT GLUCOSE BLOOD Routine 06/25/2025 8: 13 PM EDT POCT GLUCOSE BLOOD Routine 06/25/2025 5: 29 PM EDT TRANSTHORACIC ECHOCARDIOGRAM (TTE) COMPLETE W/ CONTRAST Routine 06/25/2025 4:30 PM EDT Acute hypoxic respiratory failure (CMS/HCC V24, CMS/HCC V28) Acute on chronic combined systolic and diastolic congestive heart failure (CMS/HCC V24, CMS/HCC V28) ZHU URINE CULTURE TUBE STAT 06/25/2025 2:36 PM EDT URINALYSIS WITH REFLEX MICROSCOPIC AND CULTURE STAT 06/25/2025 2:36 PM EDT URINALYSIS WITH REFLEX MICROSCOPIC AND CULTURE STAT 06/25/2025 2:36 PM EDT TROPONIN I HIGH SENSITIVITY Timed 06/25/2025 1:21 PM EDT XR CHEST 1 VIEW STAT 06/25/2025 1:11 PM EDT RESPIRATORY VIRUS PANEL MOLECULAR STUDY STAT 06/25/2025 12:04 PM EDT CULTURE BLOOD STAT 06/25/2025 11:56 AM EDT ECG 12-LEAD STAT 06/25/2025 11:43 AM EDT MANUAL DIFFERENTIAL - SYSMEX WAM STAT 06/25/2025 11:41 AM EDT HEMOGLOBIN A1C Add-On 06/25/2025 11:41 AM EDT LACTATE STAT 06/25/2025 11:41 AM EDT CBC WITH AUTO DIFFERENTIAL STAT 06/25/2025 11:41 AM EDT B-TYPE NATRIURETIC PEPTIDE STAT 06/25/2025 11:41 AM EDT TROPONIN I HIGH SENSITIVITY Timed 06/25/2025 11:41 AM EDT BASIC METABOLIC PANEL STAT 06/25/2025 11:41 AM EDT CBC AND DIFFERENTIAL STAT 06/25/2025 11:41 AM EDT CULTURE BLOOD STAT 06/25/2025 11:41 AM EDT CARDIAC DEVICE CHECK- REMOTE- MURJ Routine 06/21/2025 8:24 PM EDT ECG 12-LEAD Routine 05/29/2025 10:37 AM EDT [...] REMOTE- MURJ Routine 04/20/2025 9:17 AM EDT from Last 3 Months Results * ECG-Annotated (07/03/2025) Only the most recent of2 resultswithin the time period is included. us Provider Onbase MD ECG ORDERABLES Final Result * (ABNORMAL) POCT Glucose, blood (07/01/2025 3:35 PM EST) Only the most recent of17 resultswithin the time period is included. [facility] Glucose POCT 375(H) 70 - 100 mg/dL 07/01/2025 3:[address] [facility] Blood Capillary blood specimen / Unknown 07/01/2025 3:35 PM EST 07/01/2025 3:36 PM EST us Generic Provider Poct LAB POINT OF CARE TEST DOCKED DEVICE UNSOLICITED RESULTS Final Result [facility] [address] [place] [address], * XR Chest 2 Views (07/01/2025 1:53 [...] Signed Date: 07/01/2025 14:15 ET Workstation ID: [id number] Transcribed By: Self Edit Transcribed Date: 07/01/2025 [...] Signed Date: 07/01/2025 14:15 ET Workstation ID: [id number] Transcribed By: Self Edit Transcribed Date: 07/01/2025 14:13 ET us Lianna Hoffmann CRYPTOLOGIST IMG XR PROCEDURES Final R esult * 12-Lead ECG (07/01/2025 1:42 PM EST) Only the most recent of3 resultswithin the time period is included. Ventricular Rate ECG 70 BPM GEMUSE Atrial Rate 394 BPM GEMUSE QRS Duration 138 ms GEMUSE Q-T Interval 456 ms GEMUSE QTc 492 ms GEMUSE R Morgan -130 degrees GEMUSE T Morgan 80 degrees GEMUSE ECG Interpretation Biventricular pacemaker detected Atrial flutter and Ventricular-pace d rhythm Abnormal ECG When compared with ECG of 25-JUN-2025 11:43, No significant change was found Confirmed by DAPHNIE CALZADA ([id number]) on 07/01/2025 6:58:24 PM GEMUSE 07/01/2025 1:42 PM EST 07/01/2025 6:58 PM EST Lianna Hoffmann CRYPTOLOGIST ECG ORDERABLES Final Res ult GEMUSE * Troponin I High Sensitivity (07/01/2025 1:37 PM EST) Only the most recent of3 resultswithin the time period is included. [facility] High Sensitivity Troponin I 73 <=79 ng/L LAB CHEMISTRY METHOD 07/01/2025 2:[address] [facility] Blood Venous blood specimen / Unknown Venipuncture / Unknown 07/01/2025 1:37 PM EST 07/01/2025 2:[address] [facility] - 07/01/2025 2:31 PM EST High levels of biotin in samples may falsely decrease hsTroponin values. Use caution when interpreting hsTroponin results in patients taking biotin who exhibit renal impairment (eGFR <60) or in patients taking more than 20 mg/day of biotin. Lianna Hoffmann NP LAB BLOOD ORDERABLES Bette l Result Performing Organization Address City/[facility]/ZIP Co de Phone Number [facility] [address] [place] [address], [place] [phone] * (ABNORMAL) CBC auto differential (07/01/2025 1:37 PM EST) Only the most recent of2 resultswithin the time period is included. [facility] WBC 14.1(H) 4.8 - 10.8 K/mcL LAB HEMETOLOGY METHOD 07/01/2025 2:[address] [facility] RBC 3.10(L) 4.50 - 5.50 M/mcL LAB HEMETOLOGY METHOD 07/01/2025 2:[address] [facility] Hemoglobin 10.1(L) 13.5 - 17.5 g/dL LAB HEMETOLOGY METHOD 07/01/2025 2:13 PM [facility] Hematocrit 30.6(L) 42.0 - 54.0 % LAB HEMETOLOGY METHOD 07/01/2025 2:13 PM [facility] MCV 98.4(H) 79.0 - 98.0 FL LAB HEMETOLOGY METHOD 07/01/2025 2:13 PM [facility] MCH 32.5(H) 27.0 - 32.0 pcg LAB HEMETOLOGY METHOD 07/01/2025 2:13 PM [facility] MCHC 33.0 32.0 - 37.0 g/dL LAB HEMETOLOGY METHOD 07/01/2025 2:13 PM [facility] RDW 14.2 11.0 - 15.0 % LAB HEMETOLOGY METHOD 07/01/2025 2:13 PM [facility] Platelets 212 130 - 400 K/mcL LAB HEMETOLOGY METHOD 07/01/2025 2:13 PM [facility] MPV 11.0 7.0 - 11.0 FL LAB HEMETOLOGY METHOD 07/01/2025 2:13 PM [facility] NRBC 0.0 <1.0 % LAB HEMETOLOGY METHOD 07/01/2025 2:13 PM [facility] NRBC Absolute 0.00 <0.10 K/mcL LAB HEMETOLOGY METHOD 07/01/2025 2:13 PM [facility] Neutrophils Relative 91.0 % LAB HEMETOLOGY METHOD 07/01/2025 2:13 PM [facility] Lymphocytes Relative 2.0 % LAB HEMETOLOGY METHOD 07/01/2025 2:13 PM [facility] Monocytes Relative 4.1 % LAB HEMETOLOGY METHOD 07/01/2025 2:13 PM [facility] Eosinophils Relative 0.1 % LAB HEMETOLOGY METHOD 07/01/2025 2:13 PM [facility] Basophils Relative 0.2 % LAB HEMETOLOGY METHOD 07/01/2025 2:13 PM [facility] Immature Granulocytes Relative 2.6 % LAB HEMETOLOGY METHOD 07/01/2025 2:13 PM [facility] Neutrophils Absolute 12.80(H) 1.50 - 7.00 K/mcL LAB HEMETOLOGY METHOD 07/01/2025 2:13 PM [facility] Lymphocytes Absolute 0.28(L) 1.00 - 5.00 K/mcL LAB HEMETOLOGY METHOD 07/01/2025 2:13 PM [facility] Monocytes Absolute 0.58 0.20 - 1.00 K/mcL LAB HEMETOLOGY METHOD 07/01/2025 2:[address] [facility] Eosinophils Absolute 0.01 0.00 - 0.50 K/mcL LAB HEMETOLOGY METHOD 07/01/2025 2:[address] [facility] Basophils Absolute 0.03 0.00 - 0.20 K/mcL LAB HEMETOLOGY METHOD 07/01/2025 2:13 PM [facility] Immature Granulocytes Absolute 0.37(H) 0.00 - 0.03 K/mcL LAB HEMETOLOGY METHOD 07/01/2025 2:[address] [facility] Blood Venous blood specimen / Unknown Venipuncture / Unknown 07/01/2025 1:37 PM EST 07/01/2025 2:05 PM EST us Lianna Hoffmann CRYPTOLOGIST LAB BLOOD ORDERABLES Bette l Result [facility] [address] [place] [address], * (ABNORMAL) B-Type Natriuretic Peptide (BNP) (07/01/2025 1:37 PM EST) Only the most recent of4 resultswithin the time period is included. BNP 608(H) <=100 pcg/mL LAB CHEMISTRY METHOD 07/01/2025 2:42 PM [facility] Blood Venous blood specimen / Unknown Venipuncture / Unknown 07/01/2025 1:37 PM EST 07/01/2025 2:05 PM EST us Lianna Hoffmann CRYPTOLOGIST LAB BLOOD ORDERABLES Bette l Result [facility] [address] [place] [address], * (ABNORMAL) Comprehensive Metabolic Panel (CMP) (07/01/2025 1:37 PM EST) Pathologist [facility] Sodium 133 133 - 145 mmol/L LAB CHEMISTRY METHOD 07/01/2025 2:36 PM [facility] Potassium 5.2 3.5 - 5.5 mmol/L LAB CHEMISTRY METHOD 07/01/2025 2:36 PM [facility] Comment:Hemolysis present Chloride 102 96 - 110 mmol/L LAB CHEMISTRY METHOD 07/01/2025 2:36 PM [facility] CO2 25 21 - 32 mmol/L LAB CHEMISTRY METHOD 07/01/2025 2:36 PM [facility] Anion Gap 6 3 - 11 LAB CHEMISTRY METHOD 07/01/2025 2:36 PM [facility] Glucose 405(HH) 70 - 100 mg/dL LAB CHEMISTRY METHOD 07/01/2025 2:36 PM [facility] BUN 46(H) 5 - 25 mg/dL LAB CHEMISTRY METHOD 07/01/2025 2:36 PM [facility] Creatinine 1.28 0.70 - 1.30 mg/dL LAB CHEMISTRY METHOD 07/01/2025 2:36 PM [facility] eGFR 59(L) >=60 mL/min/1. 73m2 LAB CHEMISTRY METHOD 07/01/2025 2:36 PM [facility] Comment:Calculation based on the Chronic Kidney Disease Epidemiology Collaboration (CKD-EPI) equation refit without adjustment for race. BUN/Creatinine Ratio 35.9 LAB CHEMISTRY METHOD 07/01/2025 2:36 PM [facility] Calcium 9.2 8.5 - 10.5 mg/dL LAB CHEMISTRY METHOD 07/01/2025 2:36 PM [facility] AST (SGOT) 28 10 - 42 unit/L LAB CHEMISTRY METHOD 07/01/2025 2:36 PM [facility] Comment:Hemolysis present ALT (SGPT) 63(H) 10 - 60 unit/L LAB CHEMISTRY METHOD 07/01/2025 2:36 PM [facility] Alkaline Phosphatase 101 42 - 121 unit/L LAB CHEMISTRY METHOD 07/01/2025 2:36 PM [facility] Total Protein 6.0 6.0 - 8.0 g/dL LAB CHEMISTRY METHOD 07/01/2025 2:36 PM [facility] Albumin 2.9(L) 3.2 - 5.0 g/dL LAB CHEMISTRY METHOD 07/01/2025 2:36 PM [facility] Total Bilirubin 1.1 0.0 - 1.4 mg/dL LAB CHEMISTRY METHOD 07/01/2025 2:36 PM [facility] Blood Venous blood specimen / Unknown Venipuncture / Unknown 07/01/2025 1:37 PM EST 07/01/2025 2:05 PM EST us Lianna Hoffmann NP LAB BLOOD ORDERABLES Bette l Result [facility] [address] [place] [address], * (ABNORMAL) Complete blood count (06/28/2025 7:00 AM EDT) Only the most recent of3 resultswithin the time period is included. [facility] Signature WBC 20.5(H) 4.8 - 10.8 K/mcL LAB HEMETOLOGY METHOD 06/28/2025 7:47 AM [facility] RBC 3.00(L) 4.50 - 5.50 M/mcL LAB HEMETOLOGY METHOD 06/28/2025 7:47 AM [facility] Hemoglobin 9.8(L) 13.5 - 17.5 g/dL LAB HEMETOLOGY METHOD 06/28/2025 7:47 AM [facility] Hematocrit 30.3(L) 42.0 - 54.0 % LAB HEMETOLOGY METHOD 06/28/2025 7:47 AM [facility] MCV 100.0(H) 79.0 - 98.0 FL LAB HEMETOLOGY METHOD 06/28/2025 7:47 AM [facility] MCH 32.3(H) 27.0 - 32.0 pcg LAB HEMETOLOGY METHOD 06/28/2025 7:47 AM [facility] MCHC 32.3 32.0 - 37.0 g/dL LAB HEMETOLOGY METHOD 06/28/2025 7:47 AM [facility] RDW 14.4 11.0 - 15.0 % LAB HEMETOLOGY METHOD 06/28/2025 7:47 AM [facility] Platelets 184 130 - 400 K/mcL LAB HEMETOLOGY METHOD 06/28/2025 7:47 AM [facility] MPV 10.6 7.0 - 11.0 FL LAB HEMETOLOGY METHOD 06/28/2025 7:47 AM [facility] NRBC 0.0 <1.0 % LAB HEMETOLOGY METHOD 06/28/2025 7:[address] [facility] NRBC Absolute 0.00 <0.10 K/mcL LAB HEMETOLOGY METHOD 06/28/2025 7:[address] [facility] Blood Venous blood specimen / Unknown Venipuncture / Unknown 06/28/2025 7:00 AM EDT 06/28/2025 7:21 AM EDT us Gil Walls MD LAB BLOOD ORDERABLE S Final Result [facility] [address] [place] [address], [place] [phone] * Phosphorus (06/28/2025 7:00 AM EDT) Phosphorus 2.9 2.5 - 4.5 mg/dL LAB CHEMISTRY METHOD 06/28/2025 8:[address] [facility] Blood Venous blood specimen / Unknown Venipuncture / Unknown 06/28/2025 7:00 AM EDT 06/28/2025 7:21 AM EDT us Gil Walls MD LAB BLOOD ORDERABLE S Final Result [facility] [address] [place] [address], [place] [phone] * Magnesium (06/28/2025 7:00 AM EDT) Only the most recent of2 resultswithin the time period is included. Magnesium 2.5 1.9 - 2.6 mg/dL LAB CHEMISTRY METHOD 06/28/2025 8:[address] [facility] Blood Venous blood specimen / Unknown Venipuncture / Unknown 06/28/2025 7:00 AM EDT 06/28/2025 7:21 AM EDT Gil Walls MD LAB BLOOD ORDERABLE S Final Result [facility] [address] [place] [address], [place] [phone] * (ABNORMAL) Basic metabolic panel (06/28/2025 7:00 AM EDT) Only the most recent of6 resultswithin the time period is included. Sodium 136 133 - 145 mmol/L LAB CHEMISTRY METHOD 06/28/2025 8:22 AM [facility] Potassium 4.2 3.5 - 5.5 mmol/L LAB CHEMISTRY METHOD 06/28/2025 8:22 AM [facility] Chloride 103 96 - 110 mmol/L LAB CHEMISTRY METHOD 06/28/2025 8:22 AM [facility] CO2 25 21 - 32 mmol/L LAB CHEMISTRY METHOD 06/28/2025 8:22 AM [facility] Anion Gap 8 3 - 11 LAB CHEMISTRY METHOD 06/28/2025 8:22 AM [facility] Glucose 243(H) 70 - 100 mg/dL LAB CHEMISTRY METHOD 06/28/2025 8:22 AM [facility] BUN 68(H) 5 - 25 mg/dL LAB CHEMISTRY METHOD 06/28/2025 8:22 AM [facility] Creatinine 1.36(H) 0.70 - 1.30 mg/dL LAB CHEMISTRY METHOD 06/28/2025 8:22 AM [facility] eGFR 55(L) >=60 mL/min/1. 73m2 LAB CHEMISTRY METHOD 06/28/2025 8:22 AM [facility] Comment:Calculation based on the Chronic Kidney Disease Epidemiology Collaboration (CKD-EPI) equation refit without adjustment for race. BUN/Creatinine Ratio 50.0 LAB CHEMISTRY METHOD 06/28/2025 8:[address] [facility] Calcium 9.4 8.5 - 10.5 mg/dL LAB CHEMISTRY METHOD 06/28/2025 8:[address] [facility] Blood Venous blood specimen / Unknown Venipuncture / Unknown 06/28/2025 7:00 AM EDT 06/28/2025 7:21 AM EDT Gil Walls MD LAB BLOOD ORDERABLE S Final Result [facility] ([facility]) [facility] [address] [place] [address], [place] [phone] * (ABNORMAL) TRANSTHORACIC ECHOCARDIOGRAM (TTE) COMPLETE W/ CONTRAST (06/25/2025 4:30 PM EDT) LV EDV (A2C) 150 mL CV PACS LV EDV (A4C) 115 mL CV PACS LV Diastolic Volume (BP) 133 62 - 150 mL CV PACS LV ESV (A2C) 79 mL CV PACS LV ESV (A4C) 74 mL CV PACS LV Systolic Volume (BP) 77(A) 21 - 61 mL CV PACS IVSD 0.9 0.6 - 1.0 cm CV PACS LVIDD 4.9 4.2 - 5.8 cm CV PACS LVIDS 3.6 2.5 - 4.0 cm CV PACS LVOT Diameter 2.0 cm CV PACS LVOT Mean Juan Luis 1.0 m/s CV PACS LVOT Mean Grad 4 mmHg CV PACS LVOT Peak VTI 29.0 cm CV PACS LVOT Peak Juan Luis 1.4 m/s CV PACS LVOT Peak Gradient 8 mmHg CV PACS LVPWD 0.9 0.6 - 1.0 cm CV PACS Ejection Fraction (A2C) 47 % CV PACS Ejection Fraction (A4C) 36 % CV PACS Ejection Fraction (BP) 42 % CV PACS LVOT Area 3.1 cm2 CV PACS LVOT Stroke Volume 91 mL CV PACS Left Atrium Minor Morgan 6.7 cm CV PACS Left Atrium Major Morgan 7.0 cm CV PACS LA Area Sys (A2C) 30 cm2 CV PACS LA Area Sys (A4C) 29 cm2 CV PACS LA Volume (BP) 103 mL CV PACS RA Area 24.1 cm2 CV PACS RA 2D Volume 79 mL CV PACS AV Mean Gradient 37 mmHg CV PACS Ao VTI 91.6 cm CV PACS AV Peak Juan Luis 3.9 m/s CV PACS AV Peak Gradient 60 mmHg CV PACS AV Area Continuity Equation 1.0 cm2 CV PACS AV Area Peak Velocity 1.1 cm2 CV PACS Aortic Sinus Valsalva 2.9 cm CV PACS Ascending Aorta 3.6 cm CV PACS IVC Proximal 2.1 cm CV PACS PISA MR Radius 0.70 cm CV PACS MV Mean Gradient 3 mmHg CV PACS MR VTI 159.0 cm CV PACS MV VTI 36.9 cm CV PACS MR PISA Max Velocity 5.0 m/s CV PACS MR Peak Gradient 98 mmHg CV PACS Mitral Valve Max Velocity 1.5 m/s CV PACS MV Peak Gradient 9 mmHg CV PACS MV Peak E Juan Luis 1.45 m/s CV PACS MV Area Continuity Equation 2.5 cm2 CV PACS PV Acceleration Time 49 ms CV PACS PV Acceleration Time 49 ms CV PACS RV Diastolic Basal Dimension 4.7(A) 2.5 - 4.1 cm CV PACS RV S' 8 cm/s CV PACS TAPSE 11 mm CV PACS TR Peak Velocity 3.74 m/s CV PACS TR Peak Gradient 56 mmHg CV PACS LV ESV Index (A4C) 44 mL/m2 CV PACS LV EDV Index (A4C) 69 mL/m2 CV PACS LVOT Stroke Index 54 mL/m2 CV PACS Relative Wall Thickness ratio 0.37 CV PACS LVOT:AV VTI Index 0.32 CV PACS FS 27 % CV PACS LV Mass 2D 153 g CV PACS Ascending Aorta Index 2.16 cm/m2 CV PACS MV VTI:LVOT VTI ratio 1.3 CV PACS LVOT flow 314 mL/s CV PACS RA 2D Volume Index 47 mL/m2 CV PACS CARLOS EDUARDO Index (VTI) 0.60 cm2/m2 CV PACS CARLOS EDUARDO Index (Pk Juan Luis) 0.66 cm2/m2 CV PACS LVIDD Index 2.93 cm/m2 CV PACS LVIDS Index 2.16 cm/m2 CV PACS AV Velocity Ratio 0.36 CV PACS LV Systolic Volume Index (BP) 46 mL/m2 CV PACS LV Diastolic Volume Index (BP) 80 mL/m2 CV PACS LA Volume Index (BP) 62 mL/m2 CV PACS LV Mass Index 2D 92 g/m2 CV PACS LV EDV Index (A2C) 90 mL/m2 CV PACS LV ESV Index (A2C) 47 mL/m2 CV PACS BSA 1.65 m2 CV PACS Right Ventricular Peak Systolic Pressure 64 mmHg CV PACS Est. RA Pressure 8 mmHg CV PACS Anatomical Region Laterality Modality Ultrasound Narrative 06/25/2025 4:58 PM EDT Left ventricle cavity is mildly dilated. Left ventricular systolic function is mildly decreased with an ejection fraction of 40-45%. Regional LV wall motion abnormalities noted. See wall scoring diagram. Left ventricle wall thickness is normal. Right ventricle is enlarged. Aortic valve demonstrates severe stenosis. Aortic valve leaflets are severely calcified. Tricuspid valve demonstrates severe regurgitation. Compared to the previous study from December 2024. Gradient across the aortic valve is relatively unchanged. The ejection fraction is unchanged Left Ventricle Left ventricle cavity is mildly dilated. Wall thickness is normal. Systolic function is mildly decreased with an ejection fraction of 40-45%. Indeterminate diastolic function. Right Ventricle Right ventricle cavity is dilated. Abnormal TAPSE (< 17 mm). Abnormal systolic excursion velocity by TDI (<9.5cm/s). A pacer wire is present in the right ventricle. Left Atrium Left atrium cavity is severely dilated. Left atrium volume index is severely increased. Right Atrium Right atrium cavity is dilated. IVC/SVC Inferior vena cava structure is normal. RA pressures is estimated to be 8 mmHg (IVC diameter <21 mm and decreases <50% during inspiration). Mitral Valve The leaflets are mildly thickened. There is mild to moderate regurgitation. There is no evidence of mitral valve stenosis. Tricuspid Valve Tricuspid valve structure is normal. There is severe regurgitation. There is no evidence of tricuspid valve stenosis. Aortic Valve The aortic valve is trileaflet. The leaflets are severely calcified. There is no regurgitation. There is severe stenosis. Pulmonic Valve Visualized portions of the pulmonic valve appear normal. There is trace pulmonic valve regurgitation. There is no evidence of pulmonic valve stenosis. Ascending Aorta The aorta appears normal in size. Pericardium Pericardium appears normal. There is no pericardial effusion. Study Details Overall the study quality was adequate. Definity contrast was given to enhance imaging. Study was difficult due to: low parasternal window. Wall Scoring Baseline Score Index: 1.53 The following segments are hypokinetic: basal anterior, basal anteroseptal, basal inferoseptal, basal anterolateral, mid anterior, mid anteroseptal, mid inferoseptal, apical anterior and apical septal. All other segments are normal. Minda BERNAL CV ECHO PROCEDURES Final Result * (ABNORMAL) Urinalysis with reflex microscopic and culture (06/25/2025 2:36 PM EDT) Specific [place] Urine 1.012 1.003 - 1.030 LAB URINALYSIS - AUTOMATED METHOD 06/25/2025 3:44 PM [facility] pH, Urine 6.0 5.0 - 8.0 pH LAB URINALYSIS - AUTOMATED METHOD 06/25/2025 3:44 PM [facility] Leukocytes, Urine Negative Negative LAB URINALYSIS - AUTOMATED METHOD 06/25/2025 3:44 PM [facility] Nitrite, Urine Negative Negative LAB URINALYSIS - AUTOMATED METHOD 06/25/2025 3:44 PM [facility] Protein, Urine Trace <=Trace mg/dL LAB URINALYSIS - AUTOMATED METHOD 06/25/2025 3:44 PM [facility] Glucose, Urine 100(A) Negative mg/dL LAB URINALYSIS - AUTOMATED METHOD 06/25/2025 3:44 PM [facility] Ketones, Urine Negative Negative mg/dL LAB URINALYSIS - AUTOMATED METHOD 06/25/2025 3:44 PM [facility] Urobilinogen, Urine 0.2 0.2 - 1.0 mg/dL LAB URINALYSIS - AUTOMATED METHOD 06/25/2025 3:[address] [facility] Bilirubin, Urine Negative Negative LAB URINALYSIS - AUTOMATED METHOD 06/25/2025 3:[address] [facility] Blood, Urine Small(A) Negative LAB URINALYSIS - AUTOMATED METHOD 06/25/2025 3:44 PM [facility] RBC, Urine 1.2 0 - 4 /HPF LAB URINALYSIS - AUTOMATED METHOD [facility] WBC, Urine 0.4 0 - 4 /HPF LAB URINALYSIS - AUTOMATED METHOD 06/25/2025 3:44 PM [facility] Squamous Epithelial, Urine 10 0 - 60 /LPF LAB URINALYSIS - AUTOMATED METHOD 06/25/2025 3:44 PM [facility] Bacteria, Urine Negative Negative /HPF LAB URINALYSIS - AUTOMATED METHOD 06/25/2025 3:44 PM [facility] Hyaline Casts, Urine 6.8(H) 0 - 3 /LPF LAB URINALYSIS - AUTOMATED METHOD 06/25/2025 3:44 PM [facility] Urine Urine specimen obtained by clean catch procedure / Unknown Non-blood Collection / Unknown 06/25/2025 2:36 PM EDT 06/25/2025 3:16 PM EDT Rosario BERNAL LAB URINE ORDERABLES Fin al Result [facility] [address] [place] [address], * Zhu urine culture tube (06/25/2025 2:36 PM EDT) Extra Tube Hold for add-ons. 06/25/2025 5:[address] [facility] Comment:Auto resulted. Urine Urine specimen obtained by clean catch procedure / Unknown Non-blood Collection / Unknown 06/25/2025 2:36 PM EDT 06/25/2025 3:16 PM EDT Rosario BERNAL LAB URINE ORDERABLES [place] al Result [facility] ([facility]) [facility] [address] [place] [address], [place] [phone] * XR Chest 1 View (06/25/2025 1:11 PM EDT) Anatomical Region Laterality Modality Body Radiographic Sherrill ging 06/25/2025 2:16 PM EDT Impressions 06/25/2025 2:17 PM EDT FINDINGS/IMPRESSION: Hyperinflation. 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 Left chest wall pacer/implantable cardiac defibrillator. Small bilateral pleural effusions. Mild pulmonary congestion. Right basilar opacity could represent pneumonia. -------- FINAL REPORT -------- Dictated By: Jorge Reyes Dictated Date: 06/25/2025 14:16 ET Assigned Physician: Jorge Reyes Reviewed and Electronically Signed By: Jorge Reyes Signed Date: 06/25/2025 14:17 ET Workstation ID: [id number] Transcribed By: Self Edit Transcribed Date: 06/25/2025 14:16 ET Narrative 06/25/2025 2:17 PM EDT XR CHEST 1 VIEW INDICATION: hypoxia TECHNIQUE: XR CHEST 1 VIEW COMPARISON: None Procedure Note Jorge Reyes MD - 06/25/2025 XR CHEST 1 VIEW INDICATION: hypoxia TECHNIQUE: XR CHEST 1 VIEW COMPARISON: None IMPRESSION: FINDINGS/IMPRESSION: Hyperinflation. Postoperative mediastinum withcoronary artery bypass graft changes and atrial appendage clipping. Leftchest wall pacer/implantable cardiac defibrillator. Small bilateralpleural effusions. Mild pulmonary congestion. Right basilar opacitycould represent pneumonia. -------- FINAL REPORT -------- Dictated By: Jorge Reyes Dictated Date: 06/25/2025 14:16 ET Assigned Physician: Jorge Reyes Reviewed and Electronically Signed By: Jorge Reyes Signed Date: 06/25/2025 14:17 ET Workstation ID: [id number] Transcribed By: Self Edit Transcribed Date: 06/25/2025 14:16 ET Rosario BERNAL IMG XR PROCEDURES Final Result * Respiratory virus panel molecular study (06/25/2025 12:04 PM EDT) Pathologist [facility] Adenovirus Detection by PCR Not Detected Not Detected LAB MICROBIOLOGY METHOD 06/25/2025 1:[address] [facility] Influenza A PCR Not Detected Not Detected LAB MICROBIOLOGY METHOD 06/25/2025 1:[address] [facility] Influenza B PCR Not Detected Not Detected LAB MICROBIOLOGY METHOD 06/25/2025 1:[address] [facility] Coronavirus 229E Not Detected Not Detected LAB MICROBIOLOGY METHOD 06/25/2025 1:[address] [facility] Coronavirus HKU1 Not Detected Not Detected LAB MICROBIOLOGY METHOD 06/25/2025 1:[address] [facility] Coronavirus OC43 Not Detected Not Detected LAB MICROBIOLOGY METHOD 06/25/2025 1:[address] [facility] Coronavirus NL63 Not Detected Not Detected LAB MICROBIOLOGY METHOD 06/25/2025 1:[address] [facility] Parainfluenza Virus 1 Not Detected Not Detected LAB MICROBIOLOGY METHOD 06/25/2025 1:[address] [facility] Parainfluenza Virus 2 Not Detected Not Detected LAB MICROBIOLOGY METHOD 06/25/2025 1:[address] [facility] Parainfluenza Virus 3 Not Detected Not Detected LAB MICROBIOLOGY METHOD 06/25/2025 1:[address] [facility] Parainfluenza Virus 4 Not Detected Not Detected LAB MICROBIOLOGY METHOD 06/25/2025 1:[address] [facility] RSV PCR Not Detected Not Detected LAB MICROBIOLOGY METHOD 06/25/2025 1:[address] [facility] Human Metapneumovirus A and B Not Detected Not Detected LAB MICROBIOLOGY METHOD 06/25/2025 1:[address] [facility] Rhinovirus/Entero virus Not Detected Not Detected LAB MICROBIOLOGY METHOD 06/25/2025 1:[address] [facility] Bordetella pertussis Not Detected Not Detected LAB MICROBIOLOGY METHOD 06/25/2025 1:[address] [facility] Bordetella parapertussis Not Detected Not Detected LAB MICROBIOLOGY METHOD 06/25/2025 1:[address] [facility] Mycoplasma pneumo by PCR Not Detected Not Detected LAB MICROBIOLOGY METHOD 06/25/2025 1:[address] [facility] Chlamydia pneumoniae Not Detected Not Detected LAB MICROBIOLOGY METHOD 06/25/2025 1:[address] [facility] SARS COV-2 Not Detected Not Detected LAB MICROBIOLOGY METHOD 06/25/2025 1:[address] [facility] Swab Both anterior nares / Unknown Non-blood Collection / Unknown 06/25/2025 12:04 PM EDT 06/25/2025 12:32 PM EDT [facility] - 06/25/2025 1:27 PM EDT Testing was performed using the [employer] Respiratory Pathogen PCR Assay. All results must be correlated with the clinical findings. Results should not be used as the sole basis for diagnosis. False Negative results may occur from the presence of sequence variants in the region targeted by the assay or the presence of inhibitors. Results may be affected by concurrent antiviral/antimicrobial therapy or levels of organisms that are below the limit of detection. us Rosario BERNAL LAB MICROBIOLOGY - GENER AL ORDERABLES Final Result [facility] [address] [place] [address], * Blood Culture, Peripheral Draw #1 (06/25/2025 11:56 AM EDT) Only the most recent of2 resultswithin the time period is included. [facility] Culture, Blood No growth at 5 days LAB MICROBIOLOGY METHOD 06/30/2025 1:[address] [facility] Blood Venous blood specimen / Unknown Venipuncture / Unknown 06/25/2025 11:56 AM EDT 06/25/2025 12:33 PM EDT us Ximena Aponte MD LAB MICROBIOLOGY - GENERAL ORD ERABLES Final Result [facility] [address] [place] [address], [place] [phone] * (ABNORMAL) Manual differential (06/25/2025 11:41 AM EDT) [facility] Neutrophils % 90.0 % LAB HEMETOLOGY METHOD 06/25/2025 1:[address] [facility] Bands % 1.0 % LAB HEMETOLOGY METHOD 06/25/2025 1:[address] [facility] Lymphocytes % 3.0 % LAB HEMETOLOGY METHOD 06/25/2025 1:[address] [facility] Monocytes % 7.0 % LAB HEMETOLOGY METHOD 06/25/2025 1:[address] [facility] Eosinophils % 0.0 % LAB HEMETOLOGY METHOD 06/25/2025 1:[address] [facility] Basophils % 0.0 % LAB HEMETOLOGY METHOD 06/25/2025 1:[address] [facility] Neutrophils Absolute Manual 18.36(H) 1.50 - 7.00 K/mcL LAB HEMETOLOGY METHOD 06/25/2025 1:[address] [facility] Bands Absolute Manual 0.20(H) 0.00 - 0.00 K/mcL LAB HEMETOLOGY METHOD 06/25/2025 1:[address] [facility] Lymphocytes Absolute 0.61(L) 1.00 - 5.00 K/mcL LAB HEMETOLOGY METHOD 06/25/2025 1:[address] [facility] Monocytes Absolute Manual 1.43(H) 0.20 - 1.00 K/mcL LAB HEMETOLOGY METHOD [facility]25 [facility] Eosinophils Absolute Manual 0.00 0.00 - 0.50 K/mcL LAB HEMETOLOGY METHOD 06/25/2025 1:[address] [facility] Basophils Absolute Manual 0.00 0.00 - 0.20 K/[facility] LAB HEMETOLOGY METHOD 06/25[facility]2025 1:04 [facility] Rbc Morphology Present( A) Consistent with indices, Normal for LAB HEMETOLOGY METHOD 06/25/2025 1:04 PM [facility] Platelet Morphology - WAM See Note(A) Normal LAB HEMETOLOGY METHOD 06/25/2025 1:04 PM [facility] Comment:PLT: Normal Ovalocytes Present 5 - 10%(A) (none) LAB HEMETOLOGY METHOD 06/25/2025 1:04 PM [facility] Toxic Granules Present Present( A) (none) LAB HEMETOLOGY METHOD 06/25/2025 1:[address] [facility] Dohle Body Present Present( A) (none) LAB HEMETOLOGY METHOD 06/25/2025 1:04 PM [facility] Blood Venous blood specimen / Unknown Venipuncture / Unknown 06/25/2025 11:41 AM EDT 06/25/2025 11:51 AM EDT us Ximena Aponte MD LAB BLOOD ORDERABLES Final Res ult Performing Organization Address [facility] Co de Phone Number [facility] [address] [place] [address], [place] [phone] * (ABNORMAL) Lactate (06/25/2025 11:41 AM EDT) Lactate 3.5(HH) 0.4 - 2.0 mmol/L LAB CHEMISTRY METHOD 06/25/2025 12:[address] [facility] Blood Venous blood specimen / Unknown Venipuncture / Unknown 06/25/2025 11:41 AM EDT 06/25/2025 11:50 AM EDT us Ximena Aponte MD LAB BLOOD ORDERABLES Final Res ult Performing Organization Address [facility] de Phone Number [facility] [address] [place] [address], [place] [phone] * (ABNORMAL) Hemoglobin A1c (06/25/2025 11:41 AM EDT) Pathologist [facility] Hemoglobin A1C 7.2(H) <6.5 % LAB CHEMISTRY METHOD 06/25/2025 9:[address] [facility] Mean Bld Glu Estim. 160 mg/dL LAB CHEMISTRY METHOD 06/25/2025 9:[address] [facility] Blood Venous blood specimen / Unknown Venipuncture / Unknown 06/25/2025 11:41 AM EDT 06/25/2025 11:51 AM EDT us Ximena Aponte MD LAB BLOOD ORDERABLES Final Res ult Performing Organization Address [facility] Co de Phone Number [facility] [address] [place] [address], [place] [phone] * Cardiac device check - Remote- MURJ (06/21/2025 8:24 PM EDT) Only the most recent of3 resultswithin the time period is included. Date Time Interrogation Session [id number] CV DEVICE CHECK Type Interrogation Session Remote CV DEVICE CHECK Implantable Pulse Generator [facility] Sales MDT CV DEVICE CHECK Implantable Pulse Generator Type CUSTOMER ENERGY SPECIALIST-D CV DEVICE CHECK Implantable Pulse Generator Model Claria MRI Quad CRTD [id number] CV DEVICE CHECK Implantable Pulse Generator Serial Number [id number] CV DEVICE CHECK Implantable Pulse Generator Implant Date [id number] CV DEVICE CHECK Battery Remaining Longevity 46.0 CV DEVICE CHECK Battery Voltage 2.970 CV D EVICE CHECK Battery SPEECH THERAPY TEACHER Trigger 2.727 CV DEVICE CHECK Battery Status [...] CHECK Lead Channel RV Pacing Threshold Date 2025-06-17 CV DEVICE CHECK Lead Channel Setting Pacing Amplitude 2.000 CV DEVICE CHECK Lead Channel Setting Pacing Pulse Width 0.4 CV DEVICE CHECK Lead Channel Impedance Value 304 CV DEVICE CHECK Lead Channel Pacing Threshold Amplitude 0.750 CV DEVICE CHECK Lead Channel Pacing Threshold Pulse Width 0.4 CV DEVICE CHECK Lead Channel Pacing Threshold Date 2025-06-17 CV DEVICE CHECK Lead Channel Setting Pacing Amplitude 1.250 CV DEVICE CHECK Lead Channel Setting Pacing Pulse Width 0.4 CV DEVICE CHECK Lyndon Setting Mode (NBG Code) VVIR CV DEVICE CHECK Ventricular chambers paced during CUSTOMER ENERGY SPECIALIST pacing. BiV CV DEVICE CHECK Lyndon Setting Lower Rate Limit 70 CV DEVICE CHECK Lyndon Setting Maximum Sensor Rate 120 CV DEVICE CHECK CUSTOMER ENERGY SPECIALIST LV-RV Delay 0 CV D EVICE CHECK [...] Anatomical Region Laterality Modality Device Interroga tion 06/18/2025 12:1 8 AM EDT Impressions 06/21/2025 7:47 AM EDT Heart Failure Diagnostic: Stable * Heart failure diagnostics assessed through the device * Status: Stable * No overt HF present Narrative Procedure Note Seth Bob MD - 06/21/2025 IMPRESSION: Heart Failure Diagnostic: Stable * Heart failure diagnostics assessed through the device * Status: Stable * No overt HF present Seth Bob MD CV IMPLANTABLE CARDIAC DEVICE PROCEDURES Final Result * External clinical lab (04/25/2025 8:33 AM EDT) Historical Provider LAB BLOOD ORDERABLES Bette l Result from Last 3 Months Insurance [employer] Advance Directives Documents on File Type Date Recorded Patient [employer] Member Expl anation Advance Directives and Living Will 06/28/2025 1:31 PM Margoth Chacon Health Care Proxy * Full Code - Confirmed (Latest Code Status on File) Date Activated Date Inactivated Comments 06/25/2025 5:34 PM 06/28/2025 6:21 PM This code status was ascertained in the following way: Code status discussion: discussion with patient and daughter at bedside To update the patient's code status, place a code status order. Do not modify or discontinue any currently active code status orders. * Full Code - Default Date Activated Date Inactivated Comments 06/25/2025 2:43 PM 06/25/2025 5:34 PM This is or sarbjit is used when code status has not been discussed with the patient, or code status is otherwise unknown/unconfirmed To update the patient's code status, place a code status order. Do not modify or discontinue any currently active code status orders. Healthcare Agents on File Name Relationship Healthcare Agent Relationshi p Communication Margoth Chacon Daughter Health Care Agent Care Teams Clinical Support Tech Relationship Specialty Start Date End Date Junie Hand NP [address] [facility] [place] [address] PCP - General 09/29/22
== END 2025-07-04 12:01 | disposition home or self-care (01) ==
LOC: HO.HPSW 10:58
PROVIDERS: PCP Nurse Practitioner Family; Visit Provider Nurse Practitioner Family
DX: J44.9 Chronic obstructive pulmonary disease, unspecified (principal); F17.210 Nicotine dependence, cigarettes, uncomplicated; R91.1 Solitary pulmonary nodule; J90 Pleural effusion, not elsewhere classified; J92.9 Pleural plaque without asbestos
CPT/HCPCS: 99215; G2211

== ENCOUNTER → 2025-07-04 10:58 | Outpatient (BNVA) | payer MEDICARE, SELFPAY | PROVIDERS: PCP Nurse Practitioner Family; Visit Provider Nurse Practitioner Family | DX: J44.9 Chronic obstructive pulmonary disease, unspecified (principal); R91.1 Solitary pulmonary nodule; J90 Pleural effusion, not elsewhere classified; J92.9 Pleural plaque without asbestos; F17.210 Nicotine dependence, cigarettes, uncomplicated | CPT/HCPCS: 99212 ==

== ENCOUNTER 2025-07-05 13:09 | Outpatient (REF) | payer MEDICARE, SELFPAY ==
--- OUTSIDE RECORDS SUMMARY | 2025-07-01 12:53 | XMS_ITS | Encounter Summary ---
Author Organization [facility] Address [address] [place] [address] Care Team Providers Care Dolly Pusher Name Role Phone Junie Hand NP Primary Care Provider [phone] Reason for Visit * Reason Comments Shortness of Breath Encounter Details Date Type Department Care Team (Late st Contact Info) Description 07/01/2025 12:53 PM EST - 07/01/2025 4:13 PM [facility] Emergency [address] [place] [address] Pneumonia due to infectious organism, [...] care for your loved ones. For example, early childhood associate or elderly care for an older adult? [...] 1:01 PM EST Ricardo Urena RN * [place] Suicide Severity Rating Scale (Screener/Recent Self-Report) Question [...] type, unspecified whether angina present, unspecified whether [place] or transplanted heart,Ischemic cardiomyopathy Take 1 tablet [...] from the original note were not included. [facility] EMERGENCY EMERGENCY DEPARTMENT ENCOUNTER CHIEF COMPLAINT Chief [...] and they have made contact with the [facility] who could not take the patient as a direct admit but reports that he comes to the emergency department and gets e valuated he can be admitted there for rehabilitation. Patient's health [employer] insurance is incurring admission restrictions above. PAST [...] by mouth 1 (one) time each day. NRIUHMDUYBE-HCRPSSDMYLPT-VCXSSGEOAE (TRELEGY ELLIPTA) 200-62.5-25 MCG INHALER Inhale 1 [...] Procedure Abnormality Status --------- ------ CBC auto differential[[id number]] Please view results for these tests on [...] 134 Q-T Interval 472 QTc 509 R [place] -122 T [place] 134 ECG Interpretation Ventricular-paced rhythm Biventricular pacemaker [...] edema on chest x-ray. [LB] 1541 Called [facility] @ [phone]. Spoke to 11-07 Bulk Plant Operator who states that there are no messages regarding Mr. Rodrigues and there is no admissions people in the facility at this time. There is noway to get him admitted today. [LB] 1604 Spoke with the patient and his daughter at length. He is unwilling to be admitted to the hospital for an overnight in order to access the [facility] admissions team tomorrow morning. He and hisdaughter [...] chronicity, unspecified heart failure type (CMS/HCC V24, CMS/[facility] V28) Hypoxia Shortness of breath Hyperglycemia Weakness [...] Trelegy Ellipta 200-62.5-25 mcg inhaler Generic drug: rnkpszahcmu-paqbdxthamdk-gwyrjtrvxy Inhale 1 puff (200 mcg total) by [...] unspecified HF chronicity, unspecified heart failure type (CMS/[facility] V24, CMS/[facility] V28) 3. Hypoxia 4. Shortness of breath 5. Hyperglycemia 6. Weakness 7. Elevated brain natriuretic peptide (BNP) level The patient was discharged, all questions were answered and we engaged in shared decision-making with the plan, I stressed the importance of prompt follow-up to the patient and they were advised to follow-up and/or referrals placed as below: Junie Hand NP [address] [facility] [address] [facility] [place] [facility] [address] Go to Please keep your appointment on Wednesday with your PCP. [facility] Emergency [address] [facility] [address] As needed, If symptoms worsen [...] 4:06 PM EST Lianna Hoffmann NP 07/01/25 4919 [1] Past Medical History: Diagnosis Date Atrial fibrillation ([facility]/HCC V24, [facility] V28) Congestive heart failure (CHF) ([facility] V24, [facility] V28) COPD (chronic obstructive pulmonary disease) (CMS/[facility] V24, [facility] V28) Coronary artery disease Depression Diabetes mellitus (CMS/HCC V24, [facility] V28) Hyperlipidemia Hypertension [2] Patient Active Problem List Diagnosis Anemia CAD (coronary artery disease) COPD (chronic obstructive pulmonary disease) ([facility] V24, [facility] V28) Dizziness Hiatal hernia Ischemic cardiomyopathy Neuropathy Paroxysmal A-fib ([facility] V24, [facility] V28) HTN (hypertension) Smoker HLD (hyperlipidemia) Acute hypoxic respiratory failure ([facility] V24, [facility] V28) [3] Past Surgical History: Procedure Laterality Date ABLATION Bilateral CARDIAC DEFIBRILLATOR PLACEMENT CORONARY ARTERY BYPASS GRAFT LEFT HEART CATH WATCHMAN IMPLANT [4] Family History Problem Relation Name Age of Onset Heart attack Father CABG Brother Heart attack Paternal Grandmother Lianna Hoffmann NP 07/01/25 6298 Cosigned by Jenni Vincent MD at 07/02/2025 4:25 PM EST documented in this encounter Plan of Treatment Upcoming Encounters Date Type Department Care Team (Late st Contact Info) Description 07/06/2025 9:40 AM EST Office Visit [facility] [address] [place] [phone] Marina Sandoval NP [address] [place] [address] [place] [phone] 07/10/2025 11:00 AM EST Ancillary Procedure [facility] [address] [place] [phone] 07/12/2025 10:20 AM EST Consult [facility] [address] [place] [address] Daphnie Calzada MD [address] [place] [address] Dr [address] [place] [address] documented as of this encounter Procedures [...] POCT Glucose, blood (07/01/2025 3:35 PM EST) [facility] Signature Glucose POCT 375(H) 70 - 100 mg/dL 07/01/2025 3:35 PM EST [facility] Blood Capillary blood specimen / Unknown 07/01/2025 3:35 PM EST 07/01/2025 3:36 PM EST Generic Provider Poct LAB POINT OF CARE TEST DOCKED DEVICE UNSOLICITED RESULTS Final Result Performing Organization Address [facility]/ZIP Co de Phone Number [facility] [address] [place] [address], [place] [phone] * (ABNORMAL) POCT Glucose, blood (07/01/2025 2:42 PM EST) Glucose POCT 374(H) 70 - 100 mg/dL 07/01/2025 2:43 PM EST [facility] Blood Capillary blood specimen / Unknown 07/01/2025 2:42 PM EST 07/01/2025 2:44 PM EST [facility] Provider Poct LAB POINT OF CARE TEST DOCKED DEVICE UNSOLICITED RESULTS Final Result Performing Organization Address [facility]/ZIP Co de Phone Number [facility] [address] [place] [address], [place] [phone] * XR Chest 2 Views (07/01/2025 1:53 [...] Signed Date: 07/01/2025 14:15 ET Workstation ID: [id number] Transcribed By: Self Edit Transcribed Date: 07/01/2025 [...] Signed Date: 07/01/2025 14:15 ET Workstation ID: [id number] Transcribed By: Self Edit Transcribed Date: 07/01/2025 14:13 ET Lianna Hoffmann VENDOR SPECIALIST IMG XR PROCEDURES Final R esult * 12-Lead ECG (07/01/2025 1:42 PM EST) Ventricular Rate ECG 70 BPM GEMUSE Atrial Rate 394 BPM GEMUSE QRS Duration 138 ms GEMUSE Q-T Interval 456 ms GEMUSE QTc 492 ms GEMUSE R [place] -130 degrees GEMUSE T [place] 80 degrees GEMUSE ECG Interpretation Biventricular pacemaker [...] auto differential (07/01/2025 1:37 PM EST) Pathologist [facility] WBC 14.1(H) 4.8 - 10.8 K/mcL LAB HEMETOLOGY METHOD 07/01/2025 2:13 PM [facility] RBC 3.10(L) 4.50 - 5.50 M/mcL LAB HEMETOLOGY METHOD 07/01/2025 2:13 PM [facility] Hemoglobin 10.1(L) 13.5 - 17.5 g/dL LAB HEMETOLOGY METHOD 07/01/2025 2:13 PM [facility] Hematocrit 30.6(L) 42.0 - 54.0 % LAB HEMETOLOGY METHOD 07/01/2025 2:13 PM [facility] MCV 98.4(H) 79.0 - 98.0 FL LAB HEMETOLOGY METHOD 07/01/2025 2:13 PM [facility] MCH 32.5(H) 27.0 - 32.0 pcg LAB HEMETOLOGY METHOD 07/01/2025 2:13 PM [facility] MCHC 33.0 32.0 - 37.0 g/dL LAB HEMETOLOGY METHOD 07/01/2025 2:13 PM [facility] RDW 14.2 11.0 - 15.0 % LAB HEMETOLOGY METHOD 07/01/2025 2:13 PM [facility] Platelets 212 130 - 400 K/mcL LAB HEMETOLOGY METHOD 07/01/2025 2:13 PM [facility] MPV 11.0 7.0 - 11.0 FL LAB HEMETOLOGY METHOD 07/01/2025 2:13 PM [facility] NRBC 0.0 <1.0 % LAB HEMETOLOGY METHOD 07/01/2025 2:13 PM [facility] NRBC Absolute 0.00 <0.10 K/mcL LAB HEMETOLOGY METHOD 07/01/2025 2:13 PM [facility] Neutrophils Relative 91.0 % LAB HEMETOLOGY METHOD 07/01/2025 2:13 PM [facility] Lymphocytes Relative 2.0 % LAB HEMETOLOGY METHOD 07/01/2025 2:13 PM [facility] Monocytes Relative 4.1 % LAB HEMETOLOGY METHOD 07/01/2025 2:13 PM [facility] Eosinophils Relative 0.1 % LAB HEMETOLOGY METHOD 07/01/2025 2:13 PM [facility] Basophils Relative 0.2 % LAB HEMETOLOGY METHOD 07/01/2025 2:13 PM [facility] Immature Granulocytes Relative 2.6 % LAB HEMETOLOGY METHOD 07/01/2025 2:13 PM [facility] Neutrophils Absolute 12.80(H) 1.50 - 7.00 K/mcL LAB HEMETOLOGY METHOD 07/01/2025 2:13 PM EST [facility] Lymphocytes Absolute 0.28(L) 1.00 - 5.00 K/[facility] LAB HEMETOLOGY METHOD 07/01/2025 2:13 PM EST [facility] Monocytes Absolute 0.58 0.20 - 1.00 K/[facility] LAB HEMETOLOGY METHOD 07/01/2025 2:13 PM EST [facility] Eosinophils Absolute 0.01 0.00 - 0.50 K/[facility] LAB HEMETOLOGY METHOD 07/01/2025 2:13 PM EST [facility] Basophils Absolute 0.03 0.00 - 0.20 K/[facility] LAB HEMETOLOGY METHOD 07/01/2025 2:13 PM EST [facility] Immature Granulocytes Absolute 0.37(H) 0.00 - 0.03 K/[facility] LAB HEMETOLOGY METHOD 07/01/2025 2:13 PM EST [facility] Blood Venous blood specimen / Unknown Venipuncture / Unknown 07/01/2025 1:37 PM EST 07/01/2025 2:05 PM EST us Lianna Hoffmann VENDOR SPECIALIST LAB BLOOD ORDERABLES Bette l Result [facility] [address] [place] [address], * (ABNORMAL) B-Type Natriuretic Peptide (BNP) (07/01/2025 1:37 PM EST) BNP 608(H) <=100 pcg/mL LAB CHEMISTRY METHOD 07/01/2025 2:42 PM EST [facility] Blood Venous blood specimen / Unknown Venipuncture / Unknown 07/01/2025 1:37 PM EST 07/01/2025 2:05 PM EST us Lianna Hoffmann VENDOR SPECIALIST LAB BLOOD ORDERABLES Bette l Result Performing Organization Address [facility]/ZIP Co de Phone Number [facility] [address] [place] [address], [place] [phone] * Troponin I High Sensitivity (07/01/2025 1:37 PM EST) [facility] High Sensitivity Troponin I 73 <=79 ng/L LAB CHEMISTRY METHOD 07/01/2025 2:31 PM EST [facility] Blood Venous blood specimen / Unknown Venipuncture / Unknown 07/01/2025 1:37 PM EST 07/01/2025 2:05 PM EST Narrative [facility] - 07/01/2025 2:31 PM EST High levels of biotin in samples may falsely decrease hsTroponin values. Use caution when interpreting hsTroponin results in patients taking biotin who exhibit renal impairment (eGFR <60) or in patients taking more than 20 mg/day of biotin. Lianna Hoffmann VENDOR SPECIALIST LAB BLOOD ORDERABLES Bette l Result Performing Organization Address [facility] Co de Phone Number [facility] [address] [place] [address], [place] [phone] * (ABNORMAL) Comprehensive Metabolic Panel (CMP) (07/01/2025 1:37 PM EST) [facility] Sodium 133 133 - 145 mmol/L LAB CHEMISTRY METHOD 07/01/2025 2:36 PM EST [facility] Potassium 5.2 3.5 - 5.5 mmol/L LAB CHEMISTRY METHOD 07/01/2025 2:36 PM [facility] Comment:Hemolysis present Chloride 102 96 - 110 mmol/L LAB CHEMISTRY METHOD 07/01/2025 2:36 PM [facility] CO2 25 21 - 32 mmol/L LAB CHEMISTRY METHOD 07/01/2025 2:36 PM [facility] Anion Gap 6 3 - 11 LAB CHEMISTRY METHOD 07/01/2025 2:36 PM [facility] Glucose 405(HH) 70 - 100 mg/dL LAB CHEMISTRY METHOD 07/01/2025 2:36 PM [facility] BUN 46(H) 5 - 25 mg/dL LAB CHEMISTRY METHOD 07/01/2025 2:36 PM [facility] Creatinine 1.28 0.70 - 1.30 mg/dL LAB CHEMISTRY METHOD 07/01/2025 2:36 PM [facility] eGFR 59(L) >=60 mL/min/1. 73m2 LAB CHEMISTRY METHOD 07/01/2025 2:36 PM [facility] Comment:Calculation based on the Chronic Kidney Disease Epidemiology Collaboration (CKD-EPI) equation refit without adjustment for race. BUN/Creatinine Ratio 35.9 LAB CHEMISTRY METHOD 07/01/2025 2:36 PM [facility] Calcium 9.2 8.5 - 10.5 mg/dL LAB CHEMISTRY METHOD 07/01/2025 2:36 PM [facility] AST (SGOT) 28 10 - 42 unit/L LAB CHEMISTRY METHOD 07/01/2025 2:36 PM [facility] Comment:Hemolysis present ALT (SGPT) 63(H) 10 - 60 unit/L LAB CHEMISTRY METHOD 07/01/2025 2:36 PM [facility] Alkaline Phosphatase 101 42 - 121 unit/L LAB CHEMISTRY METHOD 07/01/2025 2:36 PM [facility] Total Protein 6.0 6.0 - 8.0 g/dL LAB CHEMISTRY METHOD 07/01/2025 2:36 PM [facility] Albumin 2.9(L) 3.2 - 5.0 g/dL LAB CHEMISTRY METHOD 07/01/2025 2:36 PM [facility] Total Bilirubin 1.1 0.0 - 1.4 mg/dL LAB CHEMISTRY METHOD 07/01/2025 2:36 PM EST [facility] Blood Venous blood specimen / Unknown Venipuncture / Unknown 07/01/2025 1:37 PM EST 07/01/2025 2:05 PM EST us Lianna Hoffmann NP LAB BLOOD ORDERABLES Bette garcia Result [facility] [address] [place] [address], documented in this encounter Visit Diagnoses Diagnosis [...] 07/01/2025 documented in this encounter Care Teams Dolly Pusher Relationship Specialty Start Date End Date Junie Hand NP [address] [facility] [place] [address] PCP - General 09/29/22 documented as of this encounter
--- NOTE | ~2025-07-05 | XR_ITS ---
EXAMINATION: XR CHEST CLINICAL INFORMATION: Z87.01 - Personal history of pneumonia (recurrent) COMPARISON: 07/26/[address] chest 06/02/2025. TECHNIQUE: 2 views of the chest were obtained. FINDINGS: There is a left dual-lead pacer/AICD device in place, leads extending into the right ventricle and coronary sinus. There is a left atrial appendage clip in place. There has been a prior median sternotomy and probable CABG. Surgical clips overlie the left heart and mediastinum. There is mild cardiac enlargement. Mediastinal and hilar contours appear normal. Aortic mural calcifications. Lungs are hyperaerated consistent with COPD. There are small layering pleural effusions bilaterally, tracking into the right major fissure. There are patchy parenchymal opacities in both lung bases right greater than left, suspicious for pneumonia. There is probable subpleural scarring along the left lateral lung margin. There is no focal osseous or soft tissue abnormality. There are degenerative spinal changes. Sternal wires appear intact and nonmigrated. XR/XR chest 2V IMPRESSION: 1. COPD. Small layering pleural effusions bilaterally, right greater than left. 2. Right greater than left basilar parenchymal opacities concerning for pneumonia. 3. Mild cardiac enlargement. Dual-lead pacer/AICD. 4. Prior median sternotomy/CABG. Left atrial appendage clamp in place. Electronically signed by: Sanjay Montilla MD 07/05/2025 01:36 PM [facility]
--- OUTSIDE RECORDS SUMMARY | 2025-07-05 16:05 | XMS_ITS | Encounter Summary ---
Author Organization [facility] Address [address] [place] [address] Care Team Providers Care Propellant Charge Loader Name Role Phone Junie Hand NP Primary Care Provider [phone] Reason for Visit * Reason Onset Date Comments blood pressure 07/04/2025 Encounter Details Date Type Department Care Team (Late st Contact Info) Description 07/04/2025 Telephone [facility] - [facility] [address] [facility] [address] [place] [address] Jeffrey Delarosa MD [address] [place] [address] [place] [phone] Social History Tobacco Use Types Packs/Day Years [...] for your loved ones. For example, child welfare assistant or elderly care for an older adult? [...] as of this encounter Progress Notes * Ling Tello RN - 07/04/2025 4:59 PM EST Spoke with Margoth and relayed JESSICA response. * Marina Sandoval NP - 07/04/2025 3:53 PM EST The trazodone can cause drowsiness but it is unlikely contributing to his hypotension. I would defer the recommendation for whether or not he should have the PET scan done to the ordering physician * Ling Tello RN - 07/04/2025 3:36 PM EST Per pcp note vs 87/45 hr 70. Daughter had reported to me BP 88 / 40-47 and had no pulse to report. Has appt with [facility] 07/12. I did relay JESSICA response to hold carvedilol. Trazadone 100 mg qhs and she is asking if that should be held due to relaxing him and for BP affect. I advised if he takes it to help him relax, not a cardiac med. She wants JESSICA to weigh in. He has a PET scan next week. PCP found no issue with him having done. Pulmonology stated to cancel as he has pneumonia and will affect the test with dye. Per daughter scheduling stated not an issue. She is asking cardiology to give opinion. He is going for a chest xray Wednesday. * Marina Sandoval NP - 07/04/2025 3:11 PM EST Lets have the patient please hold his carvedilol as it appears his blood pressure at the PCP was 88/40 with a heart rate of 47 if I am reading that correctly. Patient also needs to take into consideration that he was recently treated for sepsis which could be contributing to his symptoms. Also, canwe please find out when the patient can be seen by Dr. Anderson or Dr. Reyna for TAVR talk. * Yelitza Sams - 07/04/2025 3:03 PM EST Patient's daughter is calling back. * Ling Tello RN - 07/04/2025 2:40 PM EST Has appt with JESSICA 07/06. Saw PCP yesterday BP 88/40-47. No changes were made to meds. Saw Pulmonology today who was concerned about low BP and said to call cardiology. Today BP 82/38 at pulmonology appt. Patient is exhausted. Walks with a walker on his own. No dizziness No orthostatics checked. Hydrated drinking water but daughter unsure how much a day. States pulse good but has no number Daughter states patient does not want to go to ER. Med list reviewed Med list reviewed and is correct. Imdur 30 mg q a.m. Torsemide 40 mg qd Entresto 24-26mg BID Carvedilol 3.125mg BID Scanned in PCP office note. I advised if any dizziness, falls, fainting, chest pain lasting 10 minutes without relief, to call 911. * Supa Valenzuela - 07/04/2025 1:12 PM EST Patients daughter is calling, stating patient was seen at pcp office and his blood pressure was low 82/30 something . Daughter is wondering if blood pressure medications need to be adjusted. documented in this encounter Plan of Treatment Upcoming Encounters Date Type Department Care Team (Late st Contact Info) Description 07/06/2025 9:40 AM EST Office Visit [facility] - [address] [facility] [address] [place] [phone] Marina Sandoval NP [address] [place] [address] [place] [phone] 07/10/2025 11:00 AM EST Ancillary Procedure [facility] [address] [place] [phone] 07/12/2025 10:20 AM EST Consult [facility] - [facility] [address] [place] [phone] Daphnie Reyna MD [address] [place] [address] [address] [place] [phone] documented as of this encounter Visit Diagnoses Not on filedocumented in this encounter Care Teams Propellant Charge Loader Relationship Specialty Start Date End Date Junie Hand NP [address] [place] [facility] [place] [id number] PCP - General 09/29/22 documented as of this encounter
--- OUTSIDE RECORDS SUMMARY | 2025-07-05 16:05 | XMS_ITS | Clinical Summary ---
Author Organization [address] [facility] Address [address] [place] [address] Phone Care Team Providers Care Plasterer Maintenance Name Role Phone Junie Hand NP Primary Care Provider [phone] Allergies No known active allergies Medications aspirin [...] type, unspecified whether angina present, unspecified whether [place] or transplanted heart,Ischemic cardiomyopathy Take 1 tablet [...] type, unspecified whether angina present, unspecified whether [place] or transplanted heart,Ischemic cardiomyopathy Take 1 tablet [...] type, unspecified whether angina present, unspecified whether [place] or transplanted heart,Ischemic cardiomyopathy 10 mL IV Once in imaging 10/26/2024 Discontinued Active Problems Problem Noted Date Diagnosed Date Shortness of breath 07/05/2025 Pneumonia 07/05/2025 Overview (07/05/2025): sepsis with Cough 07/05/2025 Overview (07/05/2025): Wet cough productive for yellowish phlegm Severe aortic valve stenosis 07/05/2025 Acute hypoxic respiratory fa ilure (CMS/HCC V24, CMS/HCC V28) 06/25/2025 HLD (hyperlipidemia) 06/21/2024 Anemia 08/26/2021 [...] Future COPD (chronic obstructive pu lmonary disease) ([facility] V24, [facility] V28) 04/23/2021 Assessment & Plan (05/29/2025 [...] Encounters Date Type Department Care Team Description 07/04/2025 Telephone [facility] [address] [facility] [address] [place] [phone] Jeffrey Delarosa MD 07/01/2025 12:53 PM EST - 07/01/2025 4:13 PM EST Emergency [facility] Emergency [address] [place] [phone] Pneumonia due to infectious organism, unspecified laterality, unspecified part of lung (Primary Dx); Congestive heart failure, unspecified HF chronicity, unspecified heart failure type (CMS/HCC V24, CMS/HCC V28); Hypoxia; Shortness of breath; Hyperglycemia; Weakness; Elevated brain natriuretic peptide (BNP) level Discharge Disposition: Home or Self Care 06/28/2025 Telephone [facility] [address] [place] [phone] Alfie Wagner MD 06/25/2025 11:20 AM EDT - 06/28/2025 4:00 PM EDT Hospital Encounter [facility] Medical Surgical Unit [address] [place] [phone] Ximena Aponte MD Kela, Kashyap Devendrabhai, MD [...] Facility 06/21/2025 8:25 PM EDT Ancillary Procedure [facility] [address] [place] [address] 06/08/[address] [place] [address] Seth Bob MD 05/29/2025 7:40 AM EDT Office Visit [facility] [address] [place] [address] Marina Sandoval NP Shortness of breath (Primary Dx); Chronic obstructive pulmonary disease, unspecified COPD type (CMS/HCC V24, CMS/HCC V28); Coronary artery disease involving autologous artery coronary bypass graft without angina pectoris; Ischemic cardiomyopathy 05/28/2025 Telephone [facility] - [address] [place] [address] Jeffrey Delarosa MD 05/21/2025 Telephone [facility] - [address] [place] [address] Rex Mckeon MA 05/18/2025 4:40 PM EDT Ancillary Procedure [facility] [address] [place] [address] 05/11/2025 Telephone [facility] [address] [place] [address] Provider, Not In System 05/11/2025 Telephone [facility] [address] [place] [address] Marina Sandoval NP 05/02/2025 Telephone [facility] [address] [place] [address] Jeffrey Delarosa MD 04/20/2025 9:20 AM EDT Ancillary Procedure [facility] - [address] [place] [address] from Last 3 Months Surgical History Surgery Date Site/Laterality Comments CORONARY ARTERY BYPASS GRAFT LEFT HEART CATH WATCHMAN IMPLANT ABLATION Bilateral CARDIAC DEFIBRILLATOR PLACEMENT Medical History Medical History Date Comments COPD (chronic obstructive pulmonary disease) ( [facility] V24, [facility] V28) Diabetes mellitus ([facility] V24, [facility] V28) Coronary artery disease Congestive heart failure (CHF) ([facility] V24, [facility] V28) Atrial fibrillation ([facility] V24, [facility] V28) Hypertension Hyperlipidemia Depression Family History [...] Record ed Within the last 3 months, asael w many times did you visit the [...] do you feel lonely or isolated from ose around you? Rarely 06/25/2025 Food Risk [...] care for your loved ones. For example, salesperson children's shoes or elderly care for an older adult? [...] Description 07/06/2025 9:40 AM EST Office Visit [facility] [address] [facility] [address] [place] [address] Marina Sandoval NP [address] [place] [address] [address] [place] [address] 07/10/2025 11:00 AM EST Ancillary Procedure [facility] [address] [facility] [address] [place] [address] 07/12/2025 10:20 AM EST Consult [facility] [address] [place] [address] [address] [place] [address] Daphnie Calzada MD [address] [place] [address] [address] [place] [address] Health Maintenance Due Date Last Done Comments [...] this topic Medical Devices Implanted Type Area Restaurant Bartender Device Identifier Shelf Expiration Date Model / Serial / Lot Cardiac Doughmaker-D Icd- 2 Implanted:05/2022 by Seth Bob MD (Quantity not on file) Cardiac UPSET OPERATOR-D ICD Left: Chest [employer] - CARDIAC RHYTH-CRDM CLARIA QUAD [id number] / [id number] / Medt-Card Claria Mri Quad Crtd Yoov2ko [id number] Implanted:05/2022 (Quantity not on file) Cardiac UPSET OPERATOR-D ICD MEDTRON[employer] - CARDIAC RHYTH-CRDM CLARIA MRI QUAD CRTD [id number] / [id number] / Procedures Procedure Name Priority Date/Time [...] of17 resultswithin the time period is included. Glucose POCT 375(H) 70 - 100 mg/dL 07/01/2025 3:35 PM EST [facility] Blood Capillary blood specimen / Unknown 07/01/2025 3:35 PM EST 07/01/2025 3:36 PM EST us Generic Provider Poct LAB POINT OF CARE TEST DOCKED DEVICE UNSOLICITED RESULTS Final Result [facility] [address] [place] [address], * XR Chest 2 Views (07/01/2025 1:53 [...] Signed Date: 07/01/2025 14:15 ET Workstation ID: [id number] Transcribed By: Self Edit Transcribed Date: 07/01/2025 [...] Signed Date: 07/01/2025 14:15 ET Workstation ID: [id number] Transcribed By: Self Edit Transcribed Date: 07/01/2025 14:13 ET us Lianna Hoffmann SLIP TENDER IMG XR PROCEDURES Final R esult * 12-Lead ECG (07/01/2025 1:42 PM EST) Only the most recent of3 resultswithin the time period is included. Ventricular Rate ECG 70 BPM GEMUSE Atrial Rate 394 BPM GEMUSE QRS Duration 138 ms GEMUSE Q-T Interval 456 ms GEMUSE QTc 492 ms GEMUSE R Monroe -130 degrees GEMUSE T Monroe 80 degrees GEMUSE ECG Interpretation Biventricular pacemaker detected Atrial flutter and Ventricular-pace d rhythm Abnormal ECG When compared with ECG of 25-JUN-2025 11:43, No significant change was found Confirmed by DAPHNIE CALZADA ([id number]) on 07/01/2025 6:58:24 PM GEMUSE 07/01/2025 1:42 PM EST 07/01/2025 6:58 PM EST us Lianna Hoffmann NP ECG ORDERABLES Final Res ult Performing Organization Address [facility] Co de Phone Number GEMUSE * Troponin I High Sensitivity (07/01/2025 1:37 PM EST) Only the most recent of3 resultswithin the time period is included. Pathologist [facility] High Sensitivity Troponin I 73 <=79 ng/L LAB CHEMISTRY METHOD 07/01/2025 2:31 PM EST [facility] Blood Venous blood specimen / Unknown Venipuncture / Unknown 07/01/2025 1:37 PM EST 07/01/2025 2:05 PM EST Narrative [facility] - 07/01/2025 2:31 PM EST High levels of biotin in samples may falsely decrease hsTroponin values. Use caution when interpreting hsTroponin results in patients taking biotin who exhibit renal impairment (eGFR <60) or in patients taking more than 20 mg/day of biotin. us Lianna Hoffmann NP LAB BLOOD ORDERABLES Bette l Result Performing Organization Address City/[facility]/ZIP Co de Phone Number [facility] [address] [place] [address], [place] [phone] * (ABNORMAL) CBC auto differential (07/01/2025 1:37 PM EST) Only the most recent of2 resultswithin the time period is included. WBC 14.1(H) 4.8 - 10.8 K/mcL LAB [...] 2:13 PM [facility] Lymphocytes Absolute 0.28(L) 1.00 - 5.00 K/mcL LAB HEMETOLOGY METHOD 07/01/2025 2:13 PM [facility] Monocytes Absolute 0.58 0.20 - 1.00 K/mcL LAB HEMETOLOGY METHOD 07/01/2025 2:13 PM [facility] Eosinophils Absolute 0.01 0.00 - 0.50 K/mcL LAB HEMETOLOGY METHOD 07/01/2025 2:13 PM [facility] Basophils Absolute 0.03 0.00 - 0.20 K/mcL LAB HEMETOLOGY METHOD 07/01/2025 2:13 PM [facility] Immature Granulocytes Absolute 0.37(H) 0.00 - 0.03 K/mcL LAB HEMETOLOGY METHOD 07/01/2025 2:13 PM EST [facility] Blood Venous blood specimen / Unknown Venipuncture / Unknown 07/01/2025 1:37 PM EST 07/01/2025 2:05 PM EST Lianna Cece Hoffmann SLIP TENDER LAB BLOOD ORDERABLES Bette l Result Performing Organization Address [facility]/ZIP Co de Phone Number [facility] [address] [place] [address], [place] [phone] * (ABNORMAL) B-Type Natriuretic Peptide (BNP) (07/01/2025 1:37 PM EST) Only the most recent of4 resultswithin the time period is included. [facility] BNP 608(H) <=100 pcg/mL LAB CHEMISTRY METHOD 07/01/2025 2:42 PM [facility] Blood Venous blood specimen / Unknown Venipuncture / Unknown 07/01/2025 1:37 PM EST 07/01/2025 2:05 PM EST Lianna Hoffmann SLIP TENDER LAB BLOOD ORDERABLES Bette l Result Performing Organization Address [facility]/ZIP Co de Phone Number [facility] [address] [place] [address], [place] [phone] * (ABNORMAL) Comprehensive Metabolic Panel (CMP) (07/01/2025 1:37 PM EST) [facility] Sodium 133 133 - 145 mmol/L LAB CHEMISTRY METHOD 07/01/2025 2:36 PM [facility] Potassium 5.2 3.5 - 5.5 mmol/L [...] LAB CHEMISTRY METHOD 07/01/2025 2:36 PM EST [facility] Blood Venous blood specimen / Unknown Venipuncture / Unknown 07/01/2025 1:37 PM EST 07/01/2025 2:05 PM EST us Lianna Hoffmann NP LAB BLOOD ORDERABLES Bette l Result [facility] [address] [place] [address], [place] [phone] * (ABNORMAL) Complete blood count (06/28/2025 7:00 AM EDT) Only the most recent of3 resultswithin the time period is included. WBC 20.5(H) 4.8 - 10.8 K/mcL LAB HEMETOLOGY METHOD [facility] RBC 3.00(L) 4.50 - 5.50 M/mcL LAB HEMETOLOGY METHOD 06/28/2025 7:[facility] Hemoglobin 9.8(L) 13.5 - 17.5 g/dL LAB HEMETOLOGY METHOD 06/28/2025 7:47 AM [facility] Hematocrit 30.3(L) 42.0 - 54.0 % LAB HEMETOLOGY METHOD 06/28/2025 7:[facility] MCV 100.0(H) 79.0 - 98.0 FL LAB HEMETOLOGY METHOD 06/28/2025 7:47 [facility] MCH 32.3(H) 27.0 - 32.0 pcg LAB HEMETOLOGY METHOD 06/28/2025 7:47 [facility] MCHC 32.3 32.0 - 37.0 g/dL LAB HEMETOLOGY METHOD 06/28/2025 7:47 [facility] RDW 14.4 11.0 - 15.0 % LAB HEMETOLOGY METHOD 06/28/2025 7:47 AM EDT [facility] Platelets 184 130 - 400 K/mcL LAB HEMETOLOGY METHOD 06/28/2025 7:47 AM EDT [facility] MPV 10.6 7.0 - 11.0 FL LAB HEMETOLOGY METHOD 06/28/2025 7:47 AM EDT [facility] NRBC 0.0 <1.0 % LAB HEMETOLOGY METHOD 06/28/2025 7:47 AM EDT [facility] NRBC Absolute 0.00 <0.10 K/mcL LAB HEMETOLOGY METHOD 06/28/2025 7:47 AM EDT [facility] Blood Venous blood specimen / Unknown Venipuncture / Unknown 06/28/2025 7:00 AM EDT 06/28/2025 7:21 AM EDT us Gil Walls MD LAB BLOOD ORDERABLE S Final Result [facility] [address] [place] [address], [place] [phone] * Phosphorus (06/28/2025 7:00 AM EDT) Phosphorus 2.9 2.5 - 4.5 mg/dL LAB CHEMISTRY METHOD 06/28/2025 8:22 AM EDT [facility] Blood Venous blood specimen / Unknown Venipuncture / Unknown 06/28/2025 7:00 AM EDT 06/28/2025 7:21 AM EDT us Gil Walls MD LAB BLOOD ORDERABLE S Final Result [facility] [address] [place] [address], [place] [phone] * Magnesium (06/28/2025 7:00 AM EDT) Only the most recent of2 resultswithin the time period is included. [facility] Magnesium 2.5 1.9 - 2.6 mg/dL LAB CHEMISTRY METHOD 06/28/2025 8:22 AM EDT [facility] Blood Venous blood specimen / Unknown Venipuncture / Unknown 06/28/2025 7:00 AM EDT 06/28/2025 7:21 AM EDT Gil Walls MD LAB BLOOD ORDERABLE S Final Result [facility] [address] [place] [address], [place] [phone] * (ABNORMAL) Basic metabolic panel (06/28/2025 7:00 AM EDT) Only the most recent of6 resultswithin the time period is included. [facility] Sodium 136 133 - 145 mmol/L LAB CHEMISTRY METHOD 06/28/2025 8:22 AM [facility] Potassium 4.2 3.5 - 5.5 mmol/L LAB CHEMISTRY METHOD 06/28/2025 8:22 AM [facility] Chloride 103 96 - 110 mmol/L LAB CHEMISTRY METHOD 06/28/2025 8:22 AM [facility] CO2 25 21 - 32 mmol/L LAB CHEMISTRY METHOD 06/28/2025 8:22 AM [facility] Anion Gap 8 3 - 11 LAB CHEMISTRY METHOD 06/28/2025 8:22 AM [facility] Glucose 243(H) 70 - 100 mg/dL LAB CHEMISTRY METHOD 06/28/2025 8:22 AM [facility] BUN 68(H) 5 - 25 mg/dL LAB CHEMISTRY METHOD 06/28/2025 8:22 AM EDT [facility] Creatinine 1.36(H) 0.70 - 1.30 mg/dL LAB CHEMISTRY METHOD 06/28/2025 8:22 AM EDT [facility] eGFR 55(L) >=60 mL/min/1. 73m2 LAB CHEMISTRY METHOD 06/28/2025 8:22 AM EDT [facility] Comment:Calculation based on the Chronic Kidney Disease Epidemiology Collaboration (CKD-EPI) equation refit without adjustment for race. BUN/Creatinine Ratio 50.0 LAB CHEMISTRY METHOD 06/28/2025 8:22 AM EDT [facility] Calcium 9.4 8.5 - 10.5 mg/dL LAB CHEMISTRY METHOD 06/28/2025 8:22 AM EDT [facility] Blood Venous blood specimen / Unknown Venipuncture / Unknown 06/28/2025 7:00 AM EDT 06/28/2025 7:21 AM EDT us Gil Walls MD LAB BLOOD ORDERABLE S Final Result [facility] [address] [place] [address], [place] [phone] * (ABNORMAL) TRANSTHORACIC ECHOCARDIOGRAM (TTE) COMPLETE W/ [...] 91 mL CV PACS Left Atrium Minor Monroe 6.7 cm CV PACS Left Atrium Major Monroe 7.0 cm CV PACS LA Area Sys [...] apical septal. All other segments are normal. us Minda BERNAL CV ECHO PROCEDURES Final Result * (ABNORMAL) Urinalysis with reflex microscopic and culture (06/25/2025 2:36 PM EDT) Pathologist [facility] Specific [place] Urine 1.012 1.003 - 1.030 LAB URINALYSIS - AUTOMATED METHOD 06/25/2025 3:44 PM EDT [facility] pH, Urine 6.0 5.0 - 8.0 pH LAB URINALYSIS - AUTOMATED METHOD 06/25/2025 3:44 PM T [facility] Leukocytes, Urine Negative Negative LAB URINALYSIS - AUTOMATED METHOD 06/25/2025 3:44 PM T [facility] Nitrite, Urine Negative Negative LAB URINALYSIS - AUTOMATED METHOD 06/25/2025 3:44 PM T [facility] Protein, Urine Trace <=Trace mg/dL LAB URINALYSIS - AUTOMATED METHOD 06/25/2025 3:44 PM [facility] Glucose, Urine 100(A) Negative mg/dL LAB URINALYSIS - AUTOMATED METHOD 06/25/2025 3:44 PM [facility] Ketones, Urine Negative Negative mg/dL LAB URINALYSIS - AUTOMATED METHOD 06/25/2025 3:44 PM [facility] Urobilinogen, Urine 0.2 0.2 - 1.0 mg/dL LAB URINALYSIS - AUTOMATED METHOD 06/25/2025 3:44 PM [facility] Bilirubin, Urine Negative Negative LAB URINALYSIS - AUTOMATED METHOD 06/25/2025 3:44 PM [facility] Blood, Urine Small(A) Negative LAB URINALYSIS - AUTOMATED METHOD 06/25/2025 3:44 PM [facility] RBC, Urine 1.2 0 - 4 /HPF LAB URINALYSIS - AUTOMATED METHOD 06/25/2025 3:44 PM [facility] WBC, Urine 0.4 0 - 4 /HPF LAB URINALYSIS - AUTOMATED METHOD 06/25/2025 3:44 PM [facility] Squamous Epithelial, Urine 10 0 - 60 /LPF LAB URINALYSIS - AUTOMATED METHOD 06/25/2025 3:44 PM [facility] Bacteria, Urine Negative Negative /HPF LAB URINALYSIS - AUTOMATED METHOD 06/25/2025 3:44 PM [facility] Hyaline Casts, Urine 6.8(H) 0 - 3 /LPF LAB URINALYSIS - AUTOMATED METHOD 06/25/2025 3:44 PM [facility] Urine Urine specimen obtained by clean catch procedure / Unknown Non-blood Collection / Unknown 06/25/2025 2:36 PM EDT 06/25/2025 3:16 PM EDT us Rosario BERNAL LAB URINE ORDERABLES Fin al Result Performing Organization Address [facility] Co de Phone Number [facility] [address] [place] [address], * Zhu urine culture tube (06/25/2025 2:36 PM EDT) Extra Tube Hold for add-ons. 06/25/2025 5:01 PM EDT [facility] Comment:Auto resulted. Urine Urine specimen obtained by clean catch procedure / Unknown Non-blood Collection / Unknown 06/25/2025 2:36 PM EDT 06/25/2025 3:16 PM EDT Rosario Alejandre Rachel BERNAL LAB URINE ORDERABLES Fin al Result Performing Organization Address [facility] de Phone Number [facility] [address] [place] [address], * XR Chest 1 View (06/25/2025 1:11 [...] Signed Date: 06/25/2025 14:17 ET Workstation ID: [id number] Transcribed By: Self Edit Transcribed Date: 06/25/2025 [...] Signed Date: 06/25/2025 14:17 ET Workstation ID: [id number] Transcribed By: Self Edit Transcribed Date: 06/25/2025 14:16 ET Rosario BERNAL IMG XR PROCEDURES Final Result * Respiratory virus panel molecular study (06/25/2025 12:04 PM EDT) Pathologist [facility] Adenovirus Detection by PCR Not Detected Not Detected LAB MICROBIOLOGY METHOD 06/25/2025 1:27 PM EDT [facility] Influenza A PCR Not Detected Not Detected LAB MICROBIOLOGY METHOD 06/25/2025 1:27 PM EDT [facility] Influenza B PCR Not Detected Not Detected LAB MICROBIOLOGY METHOD 06/25/2025 1:27 PM EDT [facility] Coronavirus 229E Not Detected Not Detected LAB MICROBIOLOGY METHOD 06/25/2025 1:27 PM EDT [facility] Coronavirus HKU1 Not Detected Not Detected LAB MICROBIOLOGY METHOD 06/25/2025 1:27 PM EDT [facility] Coronavirus OC43 Not Detected Not Detected LAB MICROBIOLOGY METHOD 06/25/2025 1:27 PM EDT [facility] Coronavirus NL63 Not Detected Not Detected LAB MICROBIOLOGY METHOD 06/25/2025 1:27 PM EDT [facility] Parainfluenza Virus 1 Not Detected Not Detected LAB MICROBIOLOGY METHOD 06/25/2025 1:27 PM EDT [facility] Parainfluenza Virus 2 Not Detected Not Detected LAB MICROBIOLOGY METHOD 06/25/2025 1:27 PM EDT [facility] Parainfluenza Virus 3 Not Detected Not Detected LAB MICROBIOLOGY METHOD 06/25/2025 1:27 PM EDT [facility] Parainfluenza Virus 4 Not Detected Not Detected LAB MICROBIOLOGY METHOD 06/25/2025 1:27 PM EDT [facility] RSV PCR Not Detected Not Detected LAB MICROBIOLOGY METHOD 06/25/2025 1:27 PM EDT [facility] Human Metapneumovirus A and B Not Detected Not Detected LAB MICROBIOLOGY METHOD 06/25/2025 1:27 PM EDT [facility] Rhinovirus/Entero virus Not Detected Not Detected LAB MICROBIOLOGY METHOD 06/25/2025 1:27 PM EDT [facility] Bordetella pertussis Not Detected Not Detected LAB MICROBIOLOGY METHOD 06/25/2025 1:27 PM EDT [facility] Bordetella parapertussis Not Detected Not Detected LAB MICROBIOLOGY METHOD 06/25/2025 1:27 PM EDT [facility] Mycoplasma pneumo by PCR Not Detected Not Detected LAB MICROBIOLOGY METHOD 06/25/2025 1:27 PM EDT [facility] Chlamydia pneumoniae Not Detected Not Detected LAB MICROBIOLOGY METHOD 06/25/2025 1:27 PM EDT [facility] SARS COV-2 Not Detected Not Detected LAB MICROBIOLOGY METHOD 06/25/2025 1:27 PM EDT [facility] Swab Both anterior nares / Unknown Non-blood Collection / Unknown 06/25/2025 12:04 PM EDT 06/25/2025 12:32 PM EDT [facility] - 06/25/2025 1:27 PM EDT Testing was performed using the [employer] MXR Respiratory Pathogen PCR Assay. All results must [...] that are below the limit of detection. Rosario BERNAL LAB MICROBIOLOGY - GENER AL ORDERABLES Final Result Performing Organization Address City/[facility]/ZIP Co de Phone Number [facility] [address] [place] [address], [place] [phone] * Blood Culture, Peripheral Draw #1 (06/25/2025 11:56 AM EDT) Only the most recent of2 resultswithin the time period is included. [facility] Culture, Blood No growth at 5 days LAB MICROBIOLOGY METHOD 06/30/2025 1:01 PM EDT [facility] Blood Venous blood specimen / Unknown Venipuncture / Unknown 06/25/2025 11:56 AM EDT 06/25/2025 12:33 PM EDT Ximena Aponte MD LAB MICROBIOLOGY - GENERAL ORD ERABLES Final Result Performing Organization Address [facility] Co de Phone Number [facility] [address] [place] [address], [place] [phone] * (ABNORMAL) Manual differential (06/25/2025 11:41 AM EDT) [facility] Neutrophils % 90.0 % LAB HEMETOLOGY METHOD 06/25/2025 1:04 PM EDT [facility] Bands % 1.0 % LAB HEMETOLOGY METHOD 06/25/2025 1:04 PM EDT [facility] Lymphocytes % 3.0 % LAB HEMETOLOGY METHOD 06/25/2025 1:04 PM EDT [facility] Monocytes % 7.0 % LAB HEMETOLOGY METHOD 06/25/2025 1:04 PM EDT [facility] Eosinophils % 0.0 % LAB [facility]ETOLOGY [facility] Basophils % 0.0 % LAB HEMETOLOGY METHOD 06/25/2025 1:04 PM [facility] Neutrophils Absolute Manual 18.36(H) 1.50 - 7.00 K/mcL LAB HEMETOLOGY METHOD [facility]/25[facility]2025 [facility] Bands Absolute Manual 0.20(H) 0.00 - 0.00 K/mcL LAB HEMETOLOGY METHOD 06/25/2025 1:04 PM [facility] Lymphocytes Absolute 0.61(L) 1.00 - 5.00 K/mcL LAB HEMETOLOGY METHOD 06/25/2025 1:04 PM [facility] Monocytes Absolute Manual 1.43(H) 0.20 - 1.00 K/mcL LAB HEMETOLOGY METHOD 06/25/2025 1:04 PM [facility] Eosinophils Absolute Manual 0.00 0.00 - 0.50 K/mcL LAB HEMETOLOGY METHOD 06/25/2025 1:[facility] Basophils Absolute Manual 0.00 0.00 - 0.20 K/mcL LAB HEMETOLOGY METHOD 06/25/2025 1:[facility] Rbc Morphology Present( A) Consistent with indices, Normal for [place] LAB HEMETOLOGY METHOD 06/25/2025 1:[facility] Platelet Morphology - WAM See Note(A) Normal LAB HEMETOLOGY METHOD 06/25/2025 1:04 PM [facility] Comment:PLT: Normal Ovalocytes Present 5 - 10%(A) (none) LAB HEMETOLOGY METHOD 06/25/2025 1:04 PM [facility] Toxic Granules Present Present( A) (none) LAB HEMETOLOGY METHOD 06/25/2025 1:04 PM EDT [facility] Dohle Body Present Present( A) (none) LAB HEMETOLOGY METHOD 06/25/2025 1:04 PM EDT [facility] Blood Venous blood specimen / Unknown Venipuncture / Unknown 06/25/2025 11:41 AM EDT 06/25/2025 11:51 AM EDT Ximena Aponte MD LAB BLOOD ORDERABLES Final Res ult [facility] [address] [place] [address], [place] [phone] * (ABNORMAL) Lactate (06/25/2025 11:41 AM EDT) Lactate 3.5(HH) 0.4 - 2.0 mmol/L LAB CHEMISTRY METHOD 06/25/2025 12:50 PM EDT [facility] Blood Venous blood specimen / Unknown Venipuncture / Unknown 06/25/2025 11:41 AM EDT 06/25/2025 11:50 AM EDT Ximena Aponte MD LAB BLOOD ORDERABLES Final Res ult [facility] [address] [place] [address], [place] [phone] * (ABNORMAL) Hemoglobin A1c (06/25/2025 11:41 AM EDT) Hemoglobin A1C 7.2(H) <6.5 % LAB CHEMISTRY METHOD 06/25/2025 9:38 PM EDT [facility] Mean Bld Glu Estim. 160 mg/dL LAB CHEMISTRY METHOD 06/25/2025 9:38 PM EDT [facility] Blood Venous blood specimen / Unknown Venipuncture / Unknown 06/25/2025 11:41 AM EDT 06/25/2025 11:51 AM EDT us Ximena Aponte MD LAB BLOOD ORDERABLES Final Res ult [facility] [address] [place] [address], * Cardiac device check - Remote- MURJ (06/21/2025 8:24 PM EDT) Only the most recent of3 resultswithin the time period is included. Date Time Interrogation Session [id number] CV DEVICE CHECK Type Interrogation Session Remote CV DEVICE CHECK Implantable Pulse Generator Restaurant Bartender MDT CV DEVICE CHECK Implantable Pulse Generator Type UPSET OPERATOR-D CV DEVICE CHECK Implantable Pulse Generator Model Claria MRI Quad CRTD [id number] CV DEVICE CHECK Implantable Pulse Generator Serial Number [id number] CV DEVICE CHECK Implantable Pulse Generator Implant Date 20220608 CV DEVICE CHECK Battery Remaining Longevity 46.0 CV DEVICE CHECK Battery Voltage 2.970 CV D EVICE CHECK Battery [employer] Trigger 2.727 CV DEVICE CHECK Battery Status [...] CV DEVICE CHECK Ventricular chambers paced during UPSET OPERATOR pacing. BiV CV DEVICE CHECK Lyndon Setting Lower Rate Limit 70 CV DEVICE CHECK Lyndon Setting Maximum Sensor Rate 120 CV DEVICE CHECK UPSET OPERATOR LV-RV Delay 0 CV D EVICE [...] Documents on File Type Date Recorded Patient Herd Tester Expl anation Advance Directives and Living Will [...] [place] Daughter Health Care Agent Care Teams Plasterer Maintenance Relationship Specialty Start Date End Date Junie Hand NP [address] [facility] [address] PCP - General 09/29/22
--- OUTSIDE RECORDS SUMMARY | 2025-07-05 16:05 | XMS_ITS | Clinical Summary ---
Author Organization [facility] Address [address] [place] [address] Care Team Providers Care Slot Machine Key Person Name Role Phone Jenae Hahn MD Primary [...] MINI PEN NEEDLES 31G X 5 MM [facility] USE 1 PEN NEEDLE TO INJECT INSULIN [...] age to complete this topic Care Teams Slot Machine Key Person Relationship Specialty Start Date End Date Jenae Hahn MD [address] [place], [place] PCP - General Pulmonary Disease 09/23/21
== END 2025-07-05 13:10 | disposition home or self-care (01) ==
LOC: HO.XRAY 13:09
PROVIDERS: PCP Internal Medicine; Visit Provider Nurse Practitioner Family
DX: Z87.01 Personal history of pneumonia (recurrent) (principal)
CPT/HCPCS: 71046

== ENCOUNTER → 2025-07-05 13:17 | Outpatient (BNV) | payer MEDICARE, SELFPAY | PROVIDERS: PCP Internal Medicine; Visit Provider Radiology Diagnostic Radiology | DX: J44.9 Chronic obstructive pulmonary disease, unspecified (principal); J90 Pleural effusion, not elsewhere classified; I51.7 Cardiomegaly; R91.8 Other nonspecific abnormal finding of lung field | CPT/HCPCS: 71046 ==